=== PATIENT | male | born 1975 | race Two or more races ===

== ENCOUNTER 2023-10-17 23:25 | Emergency (ER) | payer SELFPAY ==
[2023-10-17 23:41] VITALS: BP 123/70; PULSE 88; TEMP 36.9; BMI 29.9
--- NOTE | 2023-10-17 23:59 | ED.LOWEXI1 ---
HPI HPI - Extremity Injury (Lower) General Chief Complaint: Extremity Injury, Lower Stated Complaint: LEG SWELLING Time Seen by Provider: 10/17/23 23:49 Source: patient Mode of arrival: walk-in Limitations: no limitations History of Present Illness HPI Narrative: presents complaining of swelling and redness of his legs for past 2 weeks. 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 States the legs are not as bad during the day but are worse at night with swelling and some weeping. mild sharp pain. No fever or chills. Denies injury Related Data Home Medications ?Medication ?Instructions ?Recorded ?Confirmed No Known Home Medications 10/17/23 10/17/23 Allergies Allergy/AdvReac Type Severity Reaction Status Date / Time No Known Drug Allergies Allergy Verified 10/17/23 23:51 Opioid HPI Opioid Management Most Recent Pain and Opioid Data: Last Pain Scale 4 10/17/23 23:59 Last ED Pain Assessment 10/17/23 23:59 Review of Systems ROS Status of ROS 10 or more systems reviewed and unremarkable except as noted in history and below Exam Constitutional Vital Signs, click to edit/add: Last Vital Signs Temp 98.4 F 10/17/23 23:41 Pulse 88 10/17/23 23:41 Resp 20 10/17/23 23:41 BP 123/70 10/17/23 23:41 Common normals: no apparent distress, average body habitus, oriented x3, no limitations, healthy appearing, alert and well nourished [facility] Common normals: normocephalic and head/scalp atraumatic Respiratory Common normals: normal respiratory effort, no retractions, no use of accessory muscles and clear to auscultation bilaterally Cardio Common normals: regular rate, regular rhythm, S1 normal heart sound and S2 normal heart sound GI Common normals: Normal to inspection, nondistended, normoactive bowel sounds present, soft to palpation and non-tender Extremity Other: 1+ swelling bilat lower ext. Erythematous large patch bilat teague area and also some yellow serous drainage. Mild tenderness Neuro Common normals: oriented x3, CN's II-XII intact bilaterally, moves all extremities and no focal motor deficits Psych Appearance: grossly normal Course Vital Signs Vital signs: Vital Signs Temperature 98.4 F 10/17/23 23:41 Pulse Rate 88 10/17/23 23:41 Respiratory Rate 20 10/17/23 23:41 Blood Pressure 123/70 10/17/23 23:41 Temperature 98.4 F 10/17/23 23:41 Pulse Rate 88 10/17/23 23:41 Respiratory Rate 20 10/17/23 23:41 Blood Pressure 123/70 10/17/23 23:41 MDM - Extremity Injury (Lower) MDM Narrative Medical decision making narrative: patient presents with swelling of bilateral lower extremities and erythema concerning for cellulitis. Workup with surprising results of pancytopenia. patient Denied feeling ill. No fever and only mild discomfort of his legs. Hgb 7.1. Patient denied any bleeding or tarry stools. Ask about alcohol and states he did not drink much. Additional labs ordered revealing elevated T. bili, thrombocytopenia and alcohol level 289. Patient AxOx4. Conversing normally without any signs of intoxication. Clinically he is a functioning alcoholic. He is advised of his abnormal labs and my plan to admit for observation to repeat labs. He did not want to stay. Understood my concern but signed out AMA. Will provide a prescription of Clindamycin and provide him with a PCP he can follow up with Discharge Plan Discharge Stand Alone Forms: Portal Instructions Chief Complaint: Extremity Injury, Lower Clinical Impression: Acquired pancytopenia, Bilateral lower leg cellulitis, Alcoholic Patient Disposition: Home, Self-Care Prescriptions / Home Meds: No Action No Known Home Medications Print Language: Greenlandic Instructions: Cellulitis (ED), Abuse of Alcohol (ED), Pancytopenia (DC) Additional Instructions: follow up with family doctor or with Dr Alex in a couple of days for recheck Referrals: Physician,Non-Staff, MD [Primary Care Provider] - 1 week
[2023-10-18] MEDS: METHYLPREDNISOLONE SOD SUCC PF 125 MG/2 ML VIAL IVP (00:35)
[2023-10-18] MEDS: CLINDAMYCIN PHOSPHATE/D5W 900 MG/50 ML PIGGYBACK 100 MG IV (00:35)
[2023-10-18 00:59] LABS: Anion Gap 11.2; BUN Creatinine Ratio 5.6; Calcium 7.5 mg/dL (8.5-10.1); Carbon Dioxide 26.3 mmol/L (21.0-32.0); Chloride 107 mmol/L (98-107); Estimated GFR (African America >60 (>=60); Estimated GFR (Non-African Ame >60 (>=60); Glucose 116 mg/dL (74-106); Potassium 3.5 mmol/L (3.5-5.1); Sodium 141 mmol/L (136-145)
[2023-10-18 01:10] LABS: C Reactive Protein <0.50 mg/dL (<=0.50)
[2023-10-18 01:33] LABS: Hemoglobin 7.1 g/dL (14.0-18.0); Mean Corpuscular HGB Conc 31.6 g/dL (29.9-35.2); Mean Corpuscular Hemoglobin 21.6 pg (25.9-34.0); Mean Corpuscular Volume 68.6 fL (80.0-94.0); Red Blood Count 3.28 10^6/uL (4.70-6.10); Red Cell Distribution Width 20.6 % (11.0-15.0); White Blood Count 2.8 10^3/uL (4.0-11.0)
[2023-10-18 01:35] LABS: Erythrocyte Sedimentation Rate 27 mm/hr (<=20)
[2023-10-18 01:39] LABS: Hematocrit 22.5 % (42.0-54.0); Platelet Count 19 10^3/uL (150-450)
[2023-10-18 01:49] LABS: Band Neutrophils Absolute 0.1 10^3/uL (0.0-0.3); Lymphocytes Absolute Manual 0.81 10^3/uL (1.20-3.80); Monocytes Absolute Manual 0.14 10^3/uL (0.30-0.80); Segmented Neut Absolute Manual 1.48 10^3/uL (1.4-6.5)
[2023-10-18 01:50] LABS: Basophils Abs Manual 0.02 10^3/uL (0.00-0.10); Eosinophils Absolute Manual 0.28 10^3/uL (0.00-0.70)
[2023-10-18 01:52] LABS: Poikilocytosis 1+
[2023-10-18 01:54] LABS: Microcytosis 1+
[2023-10-18 01:55] LABS: Ovalocytes 1+; Target Cells 2+
[2023-10-18 01:59] LABS: Schistocytes 1+
[2023-10-18 02:12] LABS: Alanine Aminotransferase 24 U/L (16-63); Albumin Globulin Ratio 0.4; Albumin Level 2.1 g/dL (3.4-5.0); Alkaline Phosphatase 110 U/L (46-116); Aspartate Amino Transferase 60 U/L (15-37); Bilirubin Total 2.9 mg/dL (0.2-1.0); Globulin 5.1 g/dL; Total Protein 7.2 g/dL (6.4-8.2)
[2023-10-18 02:15] LABS: Bilirubin Direct 1.5 mg/dL (0.0-0.2)
[2023-10-18 02:25] VITALS: BP 109/48; PULSE 77; O2SAT 98
[2023-10-18 02:30] LABS: Ethanol 289 mg/dL
== END 2023-10-18 03:33 | disposition left against medical advice (07) ==
PROVIDERS: Emergency Provider Internal Medicine
DX: L03.116 Cellulitis of left lower limb (principal); L03.115 Cellulitis of right lower limb; Z53.29 Procedure and treatment not carried out because of patient's decision for other reasons; D61.818 Other pancytopenia; F10.20 Alcohol dependence, uncomplicated; Y90.8 Blood alcohol level of 240 mg/100 ml or more
CPT/HCPCS: 36415; 80048; 80076; 80320; 85007; 85027; 85652; 86140; 96365; 96375; 99284; J2919

== ENCOUNTER 2023-10-24 15:18 | Observation (INO) | payer SELFPAY ==
[2023-10-24] VITALS (23 sets, daily range): BP systolic 107–129; BP diastolic 54–75; PULSE 74–102; TEMP 36.8–37.3; O2SAT 74–101; BMI 25.3; BMI 31.5
--- NOTE | 2023-10-24 15:33 | US_ITS ---
The [address] [address] Patient Name: ALEXANDER DE LA FUENTE MRN: [id number] date: 1975 Sex: M Assigned Patient Location: ER Current Patient Location: ER Accession/Order Number: [id number] Exam Date: 10/24/2023 16:24 Report Date: 10/24/2023 17:24 At the request of: MELISSA BRITO Procedure: US venous doppler LE BI EXAM: US venous doppler LE BI HISTORY: DVT COMPARISON: None. TECHNIQUE: Multiple sonographic images of the deep veins of both lower extremities were obtained, supplemented with Doppler. FINDINGS: The deep veins of both lower extremities are fairly well-visualized the groin to the mid calf. No filling defect is identified in the deep veins on either side to indicate a thrombus. There is normal compression augmentation to flow throughout bilaterally. US/US venous doppler LE BI IMPRESSION: There is no direct or indirect evidence of deep vein thrombosis in the lower extremities at this time. Electronically authenticated by: REBECCA LOPES Date: 10/24/2023 17:24
--- NOTE | 2023-10-24 15:35 | ED_ITS ---
Documented by User: PARUL Goyal 10/24/23 16:41 HPI HPI - General Adult General Chief complaint: Extremity Problem, Nontraumatic Stated complaint: CELLULITIS LEGS Time Seen by Provider: 10/24/23 15:25 Source: patient Mode of arrival: walk-in Limitations: no limitations History of Present Illness HPI narrative: Patient is a 48-year-old male With a history of alcoholic cirrhosis per the patient's significant other who returns to the emergency department at the recommendation of the nurse practitioner that he was establishing care with today. 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 He has a history of alcoholism and was noted on his visit 1 week ago to have significantly abnormal labs. He was recommended that he be admitted and he declined this, signing out AGAINST MEDICAL ADVICE. He was establishing with Senait Flores NP in the office today and she recommended he come back to the emergency department, she did not review any of his labs from last week or order any new labs or testing. Patient has had no fevers, chills, nausea, vomiting. He states he has persistent swelling and weeping of the rash to the legs. He denies any pain but states that the rash is very itchy. Related Data Home Medications ?Medication ?Instructions ?Recorded ?Confirmed clindamycin HCl 300 mg capsule 300 mg PO QID 10/24/23 10/24/23 Allergies Allergy/AdvReac Type Severity Reaction Status Date / Time No Known Drug Allergies Allergy Verified 10/17/23 23:51 Opioid HPI Opioid Management Most Recent Opioid Data: Last Pain Scale 4 10/17/23 23:59 Last Pain Assessment 10/24/23 18:00 Last ED Pain Assessment 10/17/23 23:59 Last ORT Total Score 3 10/24/23 18:10 Last ORT Risk Category Low Risk 10/24/23 18:10 Review of Systems ROS Constitutional Denies: fever or chills Ears, nose, mouth, and throat Denies: throat pain or nasal congestion Cardiovascular Denies: chest pain Respiratory Denies: shortness of breath Gastrointestinal Denies: nausea or vomiting Musculoskeletal Denies: back pain Integumentary/Breast Reports: rash and itching Neurological Denies: headache Hematologic/Lymphatic Denies: easy bruising or easy bleeding PFSH PFSH Medical History (Updated 10/24/23 @ 17:55 by Bernie Rodriguez) Hypertension ?I10 - Essential (primary) hypertension (ICD-10) Cirrhosis ?K74.60 - Unspecified cirrhosis of liver (ICD-10) Family History (Updated 10/24/23 @ 17:57 by Bernie Rodriguez) Mother Family history of cancer Family history of diabetes mellitus Sister Family history of diabetes mellitus Social History Highest level of school completed/degree received: 12th grade, no diploma Do you think of yourself as: straight/heterosexual Gender Identity: male Exam Narrative Exam Narrative: Gen.: Awake, alert, in no distress Head: Normocephalic, atraumatic ENT: Moist mucous membranes Respiratory: No respiratory distress Extremities: Moves extremities equally, Bilateral legs are mildly edematous with 1+ nonpitting edema, no erythema or red streaking noted. Rash noted to the bilateral anterior tibias distally with clear serous drainage and excoriation consistent with contact dermatitis. Psych: Normal mood and affect Neuro: No focal neuro deficit Skin: Warm, dry, intact Constitutional Vital Signs, click to edit/add: Last Vital Signs Temp 98.3 F 10/24/23 18:27 Pulse 74 10/24/23 18:27 Resp 18 10/24/23 18:27 BP 112/65 10/24/23 18:27 Pulse Ox 96 10/24/23 18:27 O2 Del Method Room Air 10/24/23 18:27 Course Vital Signs Vital signs: Vital Signs Temperature 98.8 F 10/24/23 15:22 Pulse Rate 88 10/24/23 15:22 Respiratory Rate 18 10/24/23 15:22 Blood Pressure 122/63 10/24/23 15:22 Pulse Oximetry 98 10/24/23 15:22 Temperature 98.3 F 10/24/23 18:27 Pulse Rate 74 10/24/23 18:27 Respiratory Rate 18 10/24/23 18:27 Blood Pressure 112/65 10/24/23 18:27 Pulse Oximetry 96 10/24/23 18:27 Oxygen Delivery Method Room Air 10/24/23 18:27 Medical Decision Making MDM Narrative Medical decision making narrative: Patient with stable vital signs in the ER, he has no complaints of nausea, vomiting, chest pain or shortness of breath. He has no complaints of pain in the ER. His only focal medical complaint is that his legs are swollen and itchy. Ultrasound was obtained to rule out DVT, at this time we do not see any evidence of cellulitis. Labs show the patient has continued pancytopenia with hemoglobin 6.8 and hematocrit 21.7 with platelet count 51. Rectal exam was performed, patient has light brown stool on rectal exam, no evidence of active bleeding or dark tarry stools. He has not been having any dark or tarry stools at home. Family member states he had a blood transfusion in 2019 related to his alcoholic cirrhosis. Blood consent was obtained and 2 units of packed red blood cells were ordered for the patient. He is admitted to Dr. Leary, who accepted the admission to [facility] for observation. He is hemodynamically stable at this time. Case is discussed with Dr Allan For hemato logy/oncology for any further orders or insight. Medical Records Medical records reviewed: Yes I reviewed the patient's medical records Lab Data Lab results reviewed: Yes I reviewed the patient's lab results Labs: Lab Results 10/24/23 10/24/23 10/24/23 Range/Units 15:35 15:46 15:55 WBC 3.5 L (4.0-11.0) 10^3/uL RBC 3.21 L (4.70-6.10) 10^6/uL Hgb 6.8 L* (14.0-18.0) g/dL Hct 21.7 L* (42.0-54.0) % MCV 67.6 L (80.0-94.0) fL MCH 21.2 L (25.9-34.0) pg MCHC 31.3 (29.9-35.2) g/dL RDW 22.7 H (11.0-15.0) % Plt Count 51 L (150-450) 10^3/uL Seg Neuts % (Manual) 43.0 Lymphocytes % (Manual) 41.0 (20.5-60.0) % Monocytes % (Manual) 5.0 (1.7-12.0) % Eosinophils % (Manual) 9.0 H (0.9-7.0) % Basophils % (Manual) 2.0 (0.2-2.0) % Neutrophils # (Manual) 1.50 (1.4-6.5) 10^3/uL Lymphocytes # (Manual) 1.43 (1.20-3.80) 10^3/uL Monocytes # (Manual) 0.17 L (0.30-0.80) 10^3/uL Eosinophils # (Manual) 0.31 (0.00-0.70) 10^3/uL Basophils # (Manual) 0.07 (0.00-0.10) 10^3/uL Anisocytosis 1+ Microcytosis 1+ Retic Count (auto) (0.60-3.10) % PT 16.8 H (9.0-11.6) sec INR 1.67 Sodium 137 (136-145) mmol/L Potassium 4.0 (3.5-5.1) mmol/L Chloride 103 (98-107) mmol/L Carbon Dioxide 25.0 (21.0-32.0) mmol/L Anion Gap 13.0 BUN 7.0 (7.0-18.0) mg/dL Creatinine 0.87 (0.70-1.30) mg/dL Est GFR ( Amer) >60 (>=60) Est GFR (Non-Af Amer) >60 (>=60) BUN/Creatinine Ratio 8.0 Glucose 138 H (74-106) mg/dL Lactate 1.6 (0.4-2.0) mmol/L Calcium 8.0 L (8.5-10.1) mg/dL Phosphorus (2.6-4.7) mg/dL Magnesium (1.8-2.4) mg/dL Iron (65.0-175.0) ug/dL Total Bilirubin 2.9 H (0.2-1.0) mg/dL Direct Bilirubin (0.0-0.2) mg/dL AST 68 H (15-37) U/L ALT 32 (16-63) U/L Alkaline Phosphatase 133 H (46-116) U/L Ammonia (11-32) umol/L Lactate Dehydrogenase 252 H (85-227) U/L NT-Pro-B Natriuret Pep 73.0 (<=900.0) pg/mL Total Protein 6.9 (6.4-8.2) g/dL Albumin 2.2 L (3.4-5.0) g/dL Globulin 4.7 g/dL Albumin/Globulin Ratio 0.5 Lipase (16.0-77.0) U/L Vitamin B12 (193.0-986.0) pg/mL Folate (8.60-58.90) ng/mL Stool Occult Blood Positive A Ethanol Quant 197 mg/dL Blood Type O Positive Antibody Screen Negative Crossmatch See Detail 10/24/23 Range/Units 17:06 WBC (4.0-11.0) 10^3/uL RBC (4.70-6.10) 10^6/uL Hgb (14.0-18.0) g/dL Hct (42.0-54.0) % MCV (80.0-94.0) fL MCH (25.9-34.0) pg MCHC (29.9-35.2) g/dL RDW (11.0-15.0) % Plt Count (150-450) 10^3/uL Seg Neuts % (Manual) Lymphocytes % (Manual) (20.5-60.0) % Monocytes % (Manual) (1.7-12.0) % Eosinophils % (Manual) (0.9-7.0) % Basophils % (Manual) (0.2-2.0) % Neutrophils # (Manual) (1.4-6.5) 10^3/uL Lymphocytes # (Manual) (1.20-3.80) 10^3/uL Monocytes # (Manual) (0.30-0.80) 10^3/uL Eosinophils # (Manual) (0.00-0.70) 10^3/uL Basophils # (Manual) (0.00-0.10) 10^3/uL Anisocytosis Microcytosis Retic Count (auto) 2.76 (0.60-3.10) % PT (9.0-11.6) sec INR Sodium (136-145) mmol/L Potassium (3.5-5.1) mmol/L Chloride (98-107) mmol/L Carbon Dioxide (21.0-32.0) mmol/L Anion Gap BUN (7.0-18.0) mg/dL Creatinine (0.70-1.30) mg/dL Est GFR ( Amer) (>=60) Est GFR (Non-Af Amer) (>=60) BUN/Creatinine Ratio Glucose (74-106) mg/dL Lactate (0.4-2.0) mmol/L Calcium (8.5-10.1) mg/dL Phosphorus 3.9 (2.6-4.7) mg/dL Magnesium 1.9 (1.8-2.4) mg/dL Iron 9.0 L (65.0-175.0) ug/dL Total Bilirubin (0.2-1.0) mg/dL Direct Bilirubin 1.4 H* (0.0-0.2) mg/dL AST (15-37) U/L ALT (16-63) U/L Alkaline Phosphatase (46-116) U/L Ammonia 19 (11-32) umol/L Lactate Dehydrogenase (85-227) U/L NT-Pro-B Natriuret Pep (<=900.0) pg/mL Total Protein (6.4-8.2) g/dL Albumin (3.4-5.0) g/dL Globulin g/dL Albumin/Globulin Ratio Lipase 112.0 H (16.0-77.0) U/L Vitamin B12 1713.0 H (193.0-986.0) pg/mL Folate 8.30 L (8.60-58.90) ng/mL Stool Occult Blood Ethanol Quant mg/dL Blood Type Antibody Screen Crossmatch Discharge Plan Discharge Chief Complaint: Extremity Problem, Nontraumatic Clinical Impression: Anemia requiring transfusions, Alcohol intoxication, Pancytopenia, Contact dermatitis Patient Disposition: Admitted as Observation Time of Disposition Decision: 16:39 Discharge Date/Time: 10/24/23 17:40 Documented by User: Bipin Lemus MD 10/24/23 19:30 HPI HPI - General Adult General Chief complaint: Extremity Problem, Nontraumatic Stated complaint: CELLULITIS LEGS Time Seen by Provider: 10/24/23 15:25 Related Data Home Medications ?Medication ?Instructions ?Recorded ?Confirmed clindamycin HCl 300 mg capsule 300 mg PO QID 10/24/23 10/24/23 Allergies Allergy/AdvReac Type Severity Reaction Status Date / Time No Known Drug Allergies Allergy Verified 10/17/23 23:51 Opioid HPI Opioid Management Most Recent Opioid Data: Last Pain Scale 4 10/17/23 23:59 Last Pain Assessment 10/24/23 18:00 Last ED Pain Assessment 10/17/23 23:59 Last ORT Total Score 3 10/24/23 18:10 Last ORT Risk Category Low Risk 10/24/23 18:10 PFSH PFSH Medical History (Updated 10/24/23 @ 17:55 by Bernie Rodriguez) Hypertension ?I10 - Essential (primary) hypertension (ICD-10) Cirrhosis ?K74.60 - Unspecified cirrhosis of liver (ICD-10) Family History (Updated 10/24/23 @ 17:57 by Bernie Rodriguez) Mother Family history of cancer Family history of diabetes mellitus Sister Family history of diabetes mellitus Social History Highest level of school completed/degree received: 12th grade, no diploma Do you think of yourself as: straight/heterosexual Gender Identity: male Exam Constitutional Vital Signs, click to edit/add: Last Vital Signs Temp 98.3 F 10/24/23 18:27 Pulse 74 10/24/23 18:27 Resp 18 10/24/23 18:27 BP 112/65 10/24/23 18:27 Pulse Ox 96 10/24/23 18:27 O2 Del Method Room Air 10/24/23 18:27 Course Vital Signs Vital signs: Vital Signs Temperature 98.8 F 10/24/23 15:22 Pulse Rate 88 10/24/23 15:22 Respiratory Rate 18 10/24/23 15:22 Blood Pressure 122/63 10/24/23 15:22 Pulse Oximetry 98 10/24/23 15:22 Temperature 98.3 F 10/24/23 18:27 Pulse Rate 74 10/24/23 18:27 Respiratory Rate 18 10/24/23 18:27 Blood Pressure 112/65 10/24/23 18:27 Pulse Oximetry 96 10/24/23 18:27 Oxygen Delivery Method Room Air 10/24/23 18:27 Medical Decision Making MDM Narrative Medical decision making narrative: Patient with stable vital signs in the ER, he has no complaints of nausea, vomiting, chest pain or shortness of breath. He has no complaints of pain in the ER. His only focal medical complaint is that his legs are swollen and itchy. Ultrasound was obtained to rule out DVT, at this time we do not see any evidence of cellulitis. Labs show the patient has continued pancytopenia with hemoglobin 6.8 and hematocrit 21.7 with platelet count 51. Rectal exam was performed, patient has light brown stool on rectal exam, no evidence of active bleeding or dark tarry stools. He has not been having any dark or tarry stools at home. Family member states he had a blood transfusion in 2019 related to his alcoholic cirrhosis. Blood consent was obtained and 2 units of packed red blood cells were ordered for the patient. He is admitted to Dr. Leary, who accepted the admission to [facility] for observation. He is hemodynamically stable at this time. Case is discussed with Dr Allan For hematology/oncology for any further orders or insight. I, Dr Lemus, have reviewed the above progress note and course of action in the ER; agree with the above. I have personally seen and evaluated this patient, gone over history and physical, and discussed disposition and treatment plan with the patient. Critical care time 31 minutes exclusive from separate billable procedures that were performed. The following was considered in the determination of critical care but not limited to the level of medical decision making, intensive cardiac and/or respiratory monitoring, frequent vital sign monitoring, evaluation of laboratory studies, evaluation of radiographic studies, oxygen monitoring, and constant monitoring and speaking to family at bedside Lab Data Labs: Lab Results 10/24/23 10/24/23 10/24/23 Range/Units 15:35 15:46 15:55 WBC 3.5 L (4.0-11.0) 10^3/uL RBC 3.21 L (4.70-6.10) 10^6/uL Hgb 6.8 L* (14.0-18.0) g/dL Hct 21.7 L* (42.0-54.0) % MCV 67.6 L (80.0-94.0) fL MCH 21.2 L (25.9-34.0) pg MCHC 31.3 (29.9-35.2) g/dL RDW 22.7 H (11.0-15.0) % Plt Count 51 L (150-450) 10^3/uL Seg Neuts % (Manual) 43.0 Lymphocytes % (Manual) 41.0 (20.5-60.0) % Monocytes % (Manual) 5.0 (1.7-12.0) % Eosinophils % (Manual) 9.0 H (0.9-7.0) % Basophils % (Manual) 2.0 (0.2-2.0) % Neutrophils # (Manual) 1.50 (1.4-6.5) 10^3/uL Lymphocytes # (Manual) 1.43 (1.20-3.80) 10^3/uL Monocytes # (Manual) 0.17 L (0.30-0.80) 10^3/uL Eosinophils # (Manual) 0.31 (0.00-0.70) 10^3/uL Basophils # (Manual) 0.07 (0.00-0.10) 10^3/uL Anisocytosis 1+ Microcytosis 1+ Retic Count (auto) (0.60-3.10) % PT 16.8 H (9.0-11.6) sec INR 1.67 Sodium 137 (136-145) mmol/L Potassium 4.0 (3.5-5.1) mmol/L Chloride 103 (98-107) mmol/L Carbon Dioxide 25.0 (21.0-32.0) mmol/L Anion Gap 13.0 BUN 7.0 (7.0-18.0) mg/dL Creatinine 0.87 (0.70-1.30) mg/dL Est GFR ( Amer) >60 (>=60) Est GFR (Non-Af Amer) >60 (>=60) BUN/Creatinine Ratio 8.0 Glucose 138 H (74-106) mg/dL Lactate 1.6 (0.4-2.0) mmol/L Calcium 8.0 L (8.5-10.1) mg/dL Phosphorus (2.6-4.7) mg/dL Magnesium (1.8-2.4) mg/dL Iron (65.0-175.0) ug/dL Total Bilirubin 2.9 H (0.2-1.0) mg/dL Direct Bilirubin (0.0-0.2) mg/dL AST 68 H (15-37) U/L ALT 32 (16-63) U/L Alkaline Phosphatase 133 H (46-116) U/L Ammonia (11-32) umol/L Lactate Dehydrogenase 252 H (85-227) U/L NT-Pro-B Natriuret Pep 73.0 (<=900.0) pg/mL Total Protein 6.9 (6.4-8.2) g/dL Albumin 2.2 L (3.4-5.0) g/dL Globulin 4.7 g/dL Albumin/Globulin Ratio 0.5 Lipase (16.0-77.0) U/L Vitamin B12 (193.0-986.0) pg/mL Folate (8.60-58.90) ng/mL Stool Occult Blood Positive A Ethanol Quant 197 mg/dL Blood Type O Positive Antibody Screen Negative Crossmatch See Detail 10/24/23 Range/Units 17:06 WBC (4.0-11.0) 10^3/uL RBC (4.70-6.10) 10^6/uL Hgb (14.0-18.0) g/dL Hct (42.0-54.0) % MCV (80.0-94.0) fL MCH (25.9-34.0) pg MCHC (29.9-35.2) g/dL RDW (11.0-15.0) % Plt Count (150-450) 10^3/uL Seg Neuts % (Manual) Lymphocytes % (Manual) (20.5-60.0) % Monocytes % (Manual) (1.7-12.0) % Eosinophils % (Manual) (0.9-7.0) % Basophils % (Manual) (0.2-2.0) % Neutrophils # (Manual) (1.4-6.5) 10^3/uL Lymphocytes # (Manual) (1.20-3.80) 10^3/uL Monocytes # (Manual) (0.30-0.80) 10^3/uL Eosinophils # (Manual) (0.00-0.70) 10^3/uL Basophils # (Manual) (0.00-0.10) 10^3/uL Anisocytosis Microcytosis Retic Count (auto) 2.76 (0.60-3.10) % PT (9.0-11.6) sec INR Sodium (136-145) mmol/L Potassium (3.5-5.1) mmol/L Chloride (98-107) mmol/L Carbon Dioxide (21.0-32.0) mmol/L Anion Gap BUN (7.0-18.0) mg/dL Creatinine (0.70-1.30) mg/dL Est GFR ( Amer) (>=60) Est GFR (Non-Af Amer) (>=60) BUN/Creatinine Ratio Glucose (74-106) mg/dL Lactate (0.4-2.0) mmol/L Calcium (8.5-10.1) mg/dL Phosphorus 3.9 (2.6-4.7) mg/dL Magnesium 1.9 (1.8-2.4) mg/dL Iron 9.0 L (65.0-175.0) ug/dL Total Bilirubin (0.2-1.0) mg/dL Direct Bilirubin 1.4 H* (0.0-0.2) mg/dL AST (15-37) U/L ALT (16-63) U/L Alkaline Phosphatase (46-116) U/L Ammonia 19 (11-32) umol/L Lactate Dehydrogenase (85-227) U/L NT-Pro-B Natriuret Pep (<=900.0) pg/mL Total Protein (6.4-8.2) g/dL Albumin (3.4-5.0) g/dL Globulin g/dL Albumin/Globulin Ratio Lipase 112.0 H (16.0-77.0) U/L Vitamin B12 1713.0 H (193.0-986.0) pg/mL Folate 8.30 L (8.60-58.90) ng/mL Stool Occult Blood Ethanol Quant mg/dL Blood Type Antibody Screen Crossmatch Discharge Plan Discharge Chief Complaint: Extremity Problem, Nontraumatic Clinical Impression: Anemia requiring transfusions, Alcohol intoxication, Pancytopenia, Contact dermatitis Patient Disposition: Admitted as Observation Time of Disposition Decision: 16:39 Discharge Date/Time: 10/24/23 17:40
[2023-10-24 15:48] LABS: Mean Corpuscular HGB Conc 31.3 g/dL (29.9-35.2); Mean Corpuscular Hemoglobin 21.2 pg (25.9-34.0); Mean Corpuscular Volume 67.6 fL (80.0-94.0); Platelet Count 51 10^3/uL (150-450); Red Blood Count 3.21 10^6/uL (4.70-6.10); Red Cell Distribution Width 22.7 % (11.0-15.0); White Blood Count 3.5 10^3/uL (4.0-11.0)
[2023-10-24 15:52] LABS: Hematocrit 21.7 % (42.0-54.0); Hemoglobin 6.8 g/dL (14.0-18.0)
[2023-10-24 16:01] LABS: INR 1.67; Prothrombin Time 16.8 sec (9.0-11.6)
[2023-10-24 16:03] LABS: Alanine Aminotransferase 32 U/L (16-63); Albumin Globulin Ratio 0.5; Albumin Level 2.2 g/dL (3.4-5.0); Alkaline Phosphatase 133 U/L (46-116); Aspartate Amino Transferase 68 U/L (15-37); Bilirubin Total 2.9 mg/dL (0.2-1.0); Chloride 103 mmol/L (98-107); Estimated GFR (African America >60 (>=60); Estimated GFR (Non-African Ame >60 (>=60); Ethanol 197 mg/dL; Globulin 4.7 g/dL; Glucose 138 mg/dL (74-106); Sodium 137 mmol/L (136-145); Total Protein 6.9 g/dL (6.4-8.2)
[2023-10-24 16:06] LABS: Anisocytosis 1+; Basophils Abs Manual 0.07 10^3/uL (0.00-0.10); Eosinophils Absolute Manual 0.31 10^3/uL (0.00-0.70); Lymphocytes Absolute Manual 1.43 10^3/uL (1.20-3.80); Microcytosis 1+; Monocytes Absolute Manual 0.17 10^3/uL (0.30-0.80)
[2023-10-24] MEDS: HYDROXYZINE HCL 25 MG TABLET PO (16:22)
[2023-10-24] MEDS: METHYLPREDNISOLONE SOD SUCC PF 125 MG/2 ML VIAL IVP (16:22)
--- NOTE | 2023-10-24 17:00 | US_ITS ---
The [address] [address] Patient Name: ALEXANDER DE LA FUENTE MRN: [id number] date: 1975 Sex: M Assigned Patient Location: Current Patient Location: Accession/Order Number: [id number] Exam Date: 10/24/2023 09:00 Report Date: 10/25/2023 09:14 At the request of: NACHO TUBBS Procedure: US abdomen complete EXAM: US abdomen complete HISTORY: Abd Pain COMPARISON: None. TECHNIQUE: Real-time complete abdomen ultrasound Findings: Evaluation of the pancreas is limited due to overlying bowel gas. The visualized portions are unremarkable. The visualized portions of the aorta and IVC are unremarkable. The aorta measures 2.8 cm in maximum diameter. The hepatic parenchyma is coarsened and echogenic. No focal intrahepatic mass. The main portal vein is patent and demonstrates hepatopedal flow. It measures 1.5 cm. There are upper abdominal collateral vessels adjacent to the gallbladder. The gallbladder is fluid-filled and unremarkable without evidence of stones, wall thickening or pericholecystic fluid. The technologist reports a negative sonographic Campos's sign. No biliary ductal dilatation. The common bile duct measures 0.5 cm. The right and left kidneys measure 11.7 and 13.3 cm. There is good corticomedullary differentiation bilaterally. No renal stones or collecting system dilatation. No focal mass or perinephric fluid collection. The spleen is enlarged measuring 15.6 cm. No free abdominal fluid. US/US abdomen complete IMPRESSION: 1. Coarsened and echogenic hepatic parenchymal echotexture as can be seen with hepatocellular disease. There are upper abdominal collateral vessels in the spleen is mildly enlarged. Findings may relate to portal hypertension. If indicated, consider contrast-enhanced CT for further evaluation. Electronically authenticated by: YESSI WALKER Date: 10/25/2023 09:14
[2023-10-24 17:13] LABS: Lactate Dehydrogenase 252 U/L (85-227)
[2023-10-24 17:13] LABS: Reticulocyte Pct Auto 2.76 % (0.60-3.10)
[2023-10-24 17:21] LABS: Occult Blood Positive
[2023-10-24 17:35] LABS: Phosphorus 3.9 mg/dL (2.6-4.7)
[2023-10-24 17:37] LABS: Magnesium 1.9 mg/dL (1.8-2.4)
[2023-10-24 17:38] LABS: Ammonia 19 umol/L (11-32)
[2023-10-24 17:41] LABS: Lactate/Lactic Acid 1.6 mmol/L (0.4-2.0)
[2023-10-24 17:56] LABS: Bilirubin Direct 1.4 mg/dL (0.0-0.2)
--- NOTE | 2023-10-24 18:09 | P.HP_ITS ---
HPI H&P: HPI History of Present Illness Chief complaint: CELLULITIS LEGS Anemia Requiring Transfusion Narrative: Patient was seen and evaluated in the emergency room with increasing weakness. Had rash on lower extremities. Patient found to have significant anemia. Patient admitted for workup and treatment of same When I saw patient up on the medical surgical floor, he was resting comfortably and blood. No real specific complaints. Some mild abdominal discomfort at times. Pruritus of his lower extremities. Review of labs patient have significant anemia, iron deficiency, thrombocytopenia. This is likely related to his alcohol abuse history. Opioid HPI Opioid Management Most Recent Opioid Data: Last Pain Scale 4 10/17/23 23:59 Last Pain Assessment 10/25/23 06:13 Last ORT Total Score 3 10/24/23 18:10 Last ORT Risk Category Low Risk 10/24/23 18:10 Review of Systems ROS Status of ROS 10 or more systems reviewed and unremark able except as noted in history and below PFSH PFS Medical History (Updated 10/24/23 @ 17:55 by Bernie Rodriguez) Hypertension ?I10 - Essential (primary) hypertension (ICD-10) Cirrhosis ?K74.60 - Unspecified cirrhosis of liver (ICD-10) Family History (Updated 10/24/23 @ 17:57 by Bernie Rodriguez) Mother Family history of cancer Family history of diabetes mellitus Sister Family history of diabetes mellitus Social History Highest level of school completed/degree received: 12th grade, no diploma Do you think of yourself as: straight/heterosexual Gender Identity: male Meds Home Medications and Allergies Home Medications ?Medication ?Instructions ?Recorded ?Confirmed ?Type clindamycin HCl 300 mg capsule 300 mg PO QID 10/24/23 10/24/23 History Allergies Allergy/AdvReac Type Severity Reaction Status Date / Time No Known Drug Allergies Allergy Verified 10/17/23 23:51 Exam Constitutional Vital Signs, click to edit/add: Last Vital Signs Temp 98.2 F 10/24/23 17:36 Pulse 76 10/24/23 17:36 Resp 18 10/24/23 17:36 BP 112/65 10/24/23 17:59 Pulse Ox 98 10/24/23 17:36 O2 Del Method Room Air 10/24/23 17:36 Documenting provider has reviewed patient's vital signs: yes Common normals: no apparent distress Chest Common normals: inspection of chest normal and palpation of chest normal Respiratory Common normals: normal respiratory effort, no retractions and clear to auscultation bilaterally Cardio Common normals: regular rhythm and no murmurs; irregular rate Rate: tachycardic GI Common normals: Normal to inspection, nondistended, normoactive bowel sounds present and soft to palpation; tender Palpation: tender Details: epigastric Extremity Common normals: abnormal to inspection (Bilateral lower extremity cellulitis with contact dermatitis as well) Results Labs Labs: Short CBC 10/24/23 Range/Units 15:35 WBC 3.5 L (4.0-11.0) 10^3/uL Hgb 6.8 L* (14.0-18.0) g/dL Hct 21.7 L* (42.0-54.0) % Plt Count 51 L (150-450) 10^3/uL BMP 10/24/23 15:35 Sodium 137 Potassium 4.0 Chloride 103 Carbon Dioxide 25.0 BUN 7.0 Creatinine 0.87 Glucose 138 H Calcium 8.0 L Liver Function 10/24/23 10/24/23 Range/Units 15:35 17:06 Total Bilirubin 2.9 H (0.2-1.0) mg/dL Direct Bilirubin 1.4 H* (0.0-0.2) mg/dL AST 68 H (15-37) U/L ALT 32 (16-63) U/L Alkaline Phosphatase 133 H (46-116) U/L Albumin 2.2 L (3.4-5.0) g/dL Assessment and Plan Assessment and Plan (1) Contact dermatitis: (2) Pancytopenia: (3) Alcohol intoxication: (4) Anemia requiring transfusions: (5) Bilateral lower leg cellulitis: (6) Hypertension: (7) Cirrhosis: Plan Mild tachycardia due to acute blood loss anemia with positive Hemoccult. Baseline anemia secondary to iron deficiency in bone marrow suppression from alcohol abuse. No B type cross and transfuse [address] Allan for investigation of other etiologies of the pancytopenia Thrombocytopenia-monitor daily. Not to the level of requiring transfusion Iron deficiency anemia as outlined above-start patient on IV Protonix with positive Hemoccult, scope as an outpatient Coagulopathy-secondary to likely alcoholic cirrhosis-repeat lab in a.m., consider vitamin K. Elevated liver function test secondary to alcoholic cirrhosis-check ammonia level With upper abdominal discomfort-check lipase Hyperglycemia-likely secondary to nonfasting Severe protein calorie malnutrition-diet management Cellulitis bilateral lower extremities-IV antibiotics. Admission status: Patient required transfusion. Will observe patient overnight. Hemoglobin remained stable, be discharged tomorrow. Observation status
[2023-10-24] MEDS: LEVOFLOXACIN IN DEXTROSE 5 % 750 MG/150 ML IV.SOLN 100 MG IV (19:59)
[2023-10-24] MEDS: PANTOPRAZOLE SODIUM 40 MG VIAL IV (19:59)
[2023-10-24] MEDS: CEFTRIAXONE 1,000 MG in 0.9 % SODIUM CHLORIDE 50 ML 100 MG IV (19:59)
--- NOTE | 2023-10-24 22:54 | PC.NURSE ---
Second unit of PRBCs completed at 2202. No transfusion reaction noted. VSS. Unit was verified with Librado Pratt, and Iris HONEYCUTT. All VS were charted.
[2023-10-24] MEDS: PHENobarbitaL 32.4 MG TABLET 32.3999999999999986 MG PO (23:17)
[2023-10-25] VITALS (9 sets, daily range): BP systolic 126–147; BP diastolic 62–77; PULSE 81–97; TEMP 36.8–37.1; O2SAT 95–101
[2023-10-25 00:48] LABS: Hematocrit 26.5 % (42.0-54.0); Hemoglobin 8.5 g/dL (14.0-18.0)
[2023-10-25 04:50] LABS: Basophils Percent Auto 0.4 % (0.2-2.0); Hematocrit 26.5 % (42.0-54.0); Hemoglobin 8.5 g/dL (14.0-18.0); Immature Granulocytes Abs Auto 0.04 10^3/uL (0.00-0.03); Immature Granulocytes Pct Auto 1.6 % (0.0-0.5); Lymphocytes Absolute Auto 0.2 10^3/uL (1.2-3.8); Lymphocytes Percent Auto 8.2 % (20.5-60.0); Mean Corpuscular HGB Conc 32.1 g/dL (29.9-35.2); Mean Corpuscular Hemoglobin 22.7 pg (25.9-34.0); Mean Corpuscular Volume 70.7 fL (80.0-94.0); Monocytes Absolute Auto 0.1 10^3/uL (0.3-0.8); Monocytes Percent Auto 4.9 % (1.7-12.0); Neutrophils Absolute Auto 2.1 10^3/uL (1.4-6.5); Neutrophils Percent Auto 84.9 % (43.0-75.0); Platelet Count 38 10^3/uL (150-450); Red Blood Count 3.75 10^6/uL (4.70-6.10); Red Cell Distribution Width 23.1 % (11.0-15.0); White Blood Count 2.4 10^3/uL (4.0-11.0)
[2023-10-25 05:10] LABS: Alanine Aminotransferase 25 U/L (16-63); Albumin Globulin Ratio 0.4; Alkaline Phosphatase 109 U/L (46-116); Anion Gap 9.6; Aspartate Amino Transferase 48 U/L (15-37); BUN Creatinine Ratio 11.9; Bilirubin Total 5.1 mg/dL (0.2-1.0); Calcium 7.9 mg/dL (8.5-10.1); Carbon Dioxide 23.4 mmol/L (21.0-32.0); Chloride 106 mmol/L (98-107); Estimated GFR (African America >60 (>=60); Estimated GFR (Non-African Ame >60 (>=60); Globulin 4.7 g/dL; Glucose 148 mg/dL (74-106); Sodium 135 mmol/L (136-145); Total Protein 6.7 g/dL (6.4-8.2)
[2023-10-25 05:16] LABS: INR 1.77; Prothrombin Time 17.7 sec (9.0-11.6)
[2023-10-25 05:21] LABS: Ammonia 53 umol/L (11-32); Partial Thromboplastin Time 40.4 sec (22.3-36.2)
[2023-10-25] MEDS: PHENobarbitaL 32.4 MG TABLET 32.3999999999999986 MG PO (06:12)
--- NOTE | 2023-10-25 07:33 | P.DS_ITS ---
DS: Providers Provider Date of admission: 10/24/23 17:40 Primary care physician: ESTELLA CARRILLO Consults: 10/24/23 16:58 Consult to Pharmacy Routine Consulting Provider: Reason for consultation: Please [place] me when Med Rec is Updated Has provider been notified: No DS: Diagnosis Discharge Diagnosis (1) Contact dermatitis: (2) Pancytopenia: (3) Alcohol intoxication: (4) Anemia requiring transfusions: (5) Bilateral lower leg cellulitis: (6) Hypertension: (7) Cirrhosis: Plan Mild tachycardia due to acute blood loss anemia with positive Hemoccult. Stable at time of discharge Thrombocytopenia-monitor daily. Down at the time of discharge but noncritical Iron deficiency anemia as outlined above-outpatient endoscopy Coagulopathy-elevated at the time of discharge but will give vitamin K today. Elevated liver function test secondary to alcoholic cirrhosis-improving at the time of discharge Hyperammonemia secondary to alcoholic liver cirrhosis-elevated at the time of discharge, monitor as an outpatient With upper abdominal discomfort-ultrasound pending at the time of discharge Mild [id number] as an outpatient Hyperglycemia-follow as an outpatient Severe protein calorie malnutrition-diet management Cellulitis bilateral lower extremities-change in antibiotics and topical treatment at the time of discharge Admission status: Observation status overnight for transfusion, assuming no issues with workup this morning will be discharged as observation status DS: Summary Hospital Course Hospital Course: Patient was seen and evaluated in the emergency room. Did have a follow-up visit in the emergency room on the day of admission secondary to weakness. Lower extremity pruritus. Placed on antibiotics as an outpatient. Mild cellulitis is persisting despite the antibiotics. But most significant was his anemia. Less than 7. He was given 2 units with an increase in his hemoglobin of almost 2 points. Repeat hemoglobin stable. Will discuss with oncology, further workup as an inpatient versus outpatient. Thrombocytopenia-somewhat worse today. But still noncritical. Liver function test for his alcoholic liver cirrhosis are improving. Lipase labs are pending. Ultrasound of abdomen is pending. If his ultrasound shows no significant obstruction, with his abdominal pain resolved will discharge home with further workup as an outpatient. Discussed his abstinence is critical for future health. Medication status. Follow-up with PCP within the next week. Time Spent with Patient Time attestation: Total time spent providing and/or coordinating discharge services: Exam Constitutional Vital Signs, click to edit/add: Last Vital Signs Temp 98.8 F 10/25/23 03:52 Pulse 85 10/25/23 06:00 Resp 16 10/25/23 03:52 BP 126/62 10/25/23 06:13 Pulse Ox 96 10/25/23 03:53 O2 Del Method Room Air 10/25/23 03:53 Documenting provider has reviewed patient's vital signs: yes Common normals: no apparent distress Chest Common normals: inspection of chest normal and palpation of chest normal Respiratory Common normals: normal respiratory effort, no retractions and clear to auscultat ion bilaterally Cardio Common normals: regular rhythm and no murmurs; irregular rate Rate: tachycardic GI Common normals: Normal to inspection, nondistended, normoactive bowel sounds present, soft to palpation and non-tender (Mild tenderness from previous day has resolved) Extremity Common normals: abnormal to inspection (Bilateral lower extremity cellulitis with contact dermatitis as well) DS: Data Data Completed and Pending Labs on day of discharge: Labs from last 24 hours 10/25/23 10/25/23 10/24/23 04:41 00:34 17:06 WBC 2.4 L RBC 3.75 L Hgb 8.5 L 8.5 L Hct 26.5 L 26.5 L MCV 70.7 L MCH 22.7 L MCHC 32.1 RDW 23.1 H Plt Count 38 L MPV 0.0 L Neut % (Auto) 84.9 H Lymph % (Auto) 8.2 L Crawford % (Auto) 4.9 Eos % (Auto) 0.0 L Baso % (Auto) 0.4 Neut # (Auto) 2.1 Lymph # (Auto) 0.2 L Crawford # (Auto) 0.1 L Eos # (Auto) 0.0 Baso # (Auto) 0.0 Abs Immat Gran (auto) 0.04 H Seg Neuts % (Manual) Lymphocytes % (Manual) Monocytes % (Manual) Eosinophils % (Manual) Basophils % (Manual) Imm/Tot Granulo (auto) 1.6 H Neutrophils # (Manual) Lymphocytes # (Manual) Monocytes # (Manual) Eosinophils # (Manual) Basophils # (Manual) Anisocytosis Microcytosis Retic Count (auto) 2.76 PT 17.7 H INR 1.77 APTT 40.4 H* Sodium 135 L Potassium 4.0 Chloride 106 Carbon Dioxide 23.4 Anion Gap 9.6 BUN 8.0 Creatinine 0.67 L Est GFR ( Amer) >60 Est GFR (Non-Af Amer) >60 BUN/Creatinine Ratio 11.9 Glucose 148 H Lactate Calcium 7.9 L Phosphorus 3.9 Magnesium 1.9 Iron 9.0 L Total Bilirubin 5.1 H Direct Bilirubin 1.4 H* AST 48 H ALT 25 Alkaline Phosphatase 109 Ammonia 53 H* 19 Lactate Dehydrogenase NT-Pro-B Natriuret Pep Total Protein 6.7 Albumin 2.0 L Globulin 4.7 Albumin/Globulin Ratio 0.4 Lipase 61.0 112.0 H Vitamin B12 1713.0 H Folate 8.30 L Stool Occult Blood Ethanol Quant Blood Type Antibody Screen Crossmatch 10/24/23 10/24/23 10/24/23 15:55 15:46 15:35 WBC 3.5 L RBC 3.21 L Hgb 6.8 L* Hct 21.7 L* MCV 67.6 L MCH 21.2 L MCHC 31.3 RDW 22.7 H Plt Count 51 L MPV Neut % (Auto) Lymph % (Auto) Crawford % (Auto) Eos % (Auto) Baso % (Auto) Neut # (Auto) Lymph # (Auto) Crawford # (Auto) Eos # (Auto) Baso # (Auto) Abs Immat Gran (auto) Seg Neuts % (Manual) 43.0 Lymphocytes % (Manual) 41.0 Monocytes % (Manual) 5.0 Eosinophils % (Manual) 9.0 H Basophils % (Manual) 2.0 Imm/Tot Granulo (auto) Neutrophils # (Manual) 1.50 Lymphocytes # (Manual) 1.43 Monocytes # (Manual) 0.17 L Eosinophils # (Manual) 0.31 Basophils # (Manual) 0.07 Anisocytosis 1+ Microcytosis 1+ Retic Count (auto) PT 16.8 H INR 1.67 APTT Sodium 137 Potassium 4.0 Chloride 103 Carbon Dioxide 25.0 Anion Gap 13.0 BUN 7.0 Creatinine 0.87 Est GFR ( Amer) >60 Est GFR (Non-Af Amer) >60 BUN/Creatinine Ratio 8.0 Glucose 138 H Lactate 1.6 Calcium 8.0 L Phosphorus Magnesium Iron Total Bilirubin 2.9 H Direct Bilirubin AST 68 H ALT 32 Alkaline Phosphatase 133 H Ammonia Lactate Dehydrogenase 252 H NT-Pro-B Natriuret Pep 73.0 Total Protein 6.9 Albumin 2.2 L Globulin 4.7 Albumin/Globulin Ratio 0.5 Lipase Vitamin B12 Folate Stool Occult Blood Positive A Ethanol Quant 197 Blood Type O Positive Antibody Screen Negative Crossmatch See Detail Discharge Plan Discharge Disposition: Home, Self-Care Discharge Medications: New cephalexin 500 mg capsule 1,000 mg PO BID Qty: 40 0RF lactulose 10 gram/15 mL (15 mL) Solution 20 g PO BID Qty: 600 0RF pantoprazole [Protonix] 40 mg tablet,delayed release (DR/EC) 40 mg PO DAILY Qty: 30 11RF Discontinued clindamycin HCl 300 mg capsule 300 mg PO QID Rx Instructions: FILLED 10/18/23 FOR 10 DAYS Activity: resume usual activities as tolerated Diet: advance to your usual diet Print Language: Maldivian Patient Instructions: Contact Dermatitis (DC), Abuse of Alcohol (DC), Anemia (DC), Pancytopenia (DC) Forms: Portal Instructions Follow Up Appointments: Dr. Allan TuesdayOctober 31 @ 3:15pm [facility]- first floor where occupational health is located *bring all medications in original bottles [phone] ext: [phone] Estella Carrillo NP TuesdayNovember 01 @ 9:00am [phone] Discharge Date/Time: 10/25/23 10:33
[2023-10-25] MEDS: PHYTONADIONE (VIT K1) 10 MG/ML AMPUL 5 MG PO (09:00)
[2023-10-25] MEDS: LACTULOSE 10 GM/15 ML UD CUP 30 GM PO (09:01)
[2023-10-25] MEDS: TRIAMCINOLONE ACETONIDE 0.1% CREAM 15 GM TUBE 1 APPLIC TOPICAL (09:01)
--- NOTE | 2023-10-25 09:59 | SWNOTE1 ---
SW spoke to nursing and nursing requested list of AA meetings for pt. She has spoken with family and patient and they would just like resources. AA list given to nursing to provide to pt.
[2023-10-26 05:08] LABS: Haptoglobin 28 mg/dL (23-355)
--- NOTE | 2023-10-26 12:22 | CM.DCFOLLOWU ---
1st attempt 10/26/23, no answer
--- NOTE | 2023-10-27 11:41 | CM.DCFOLLOWU ---
1st attempt, no answer 10/27/23
--- NOTE | 2023-10-28 15:04 | CM.DCFOLLOWU ---
3rd attempt, 10/28/23 no answer 3 attempts made, no answer each time.
== END 2023-10-25 10:33 | disposition home or self-care (01) ==
LOC: ER 17:04 → MS 17:48
PROVIDERS: Internal Medicine Hematology & Oncology; Physician Assistant; Registered Nurse; Admitting Provider Family Medicine; Emergency Provider Emergency Medicine; PCP Nurse Practitioner Family; Visit Provider Family Medicine
DX: D62 Acute posthemorrhagic anemia (principal); R00.0 Tachycardia, unspecified; D69.6 Thrombocytopenia, unspecified; D50.9 Iron deficiency anemia, unspecified; D68.9 Coagulation defect, unspecified; R79.89 Other specified abnormal findings of blood chemistry; K70.30 Alcoholic cirrhosis of liver without ascites; E72.20 Disorder of urea cycle metabolism, unspecified; K85.90 Acute pancreatitis without necrosis or infection, unspecified; R73.9 Hyperglycemia, unspecified; E43 Unspecified severe protein-calorie malnutrition; L03.116 Cellulitis of left lower limb; L03.115 Cellulitis of right lower limb; I10 Essential (primary) hypertension; F10.129 Alcohol abuse with intoxication, unspecified; L25.9 Unspecified contact dermatitis, unspecified cause; R10.10 Upper abdominal pain, unspecified; Y90.6 Blood alcohol level of 120-199 mg/100 ml; Z68.31 Body mass index [BMI] 31.0-31.9, adult
CPT/HCPCS: 36415; 36430; 76700; 80053; 80320; 82140; 82248; 82607; 82728; 82746; 83010; 83540; 83550; 83605; 83615; 83690; 83735; 83880; 84100; 85007; 85014; 85018; 85025; 85027; 85045; 85610; 85730; 86850; 86880; 86900; 86901; 93970; 94761; 96365; 96366; 96368; 96375; 99285; G0328; G0378; J2919; P9016

== ENCOUNTER 2023-11-01 07:47 | Outpatient (RCR) | payer SELFPAY | END 2023-11-11 23:59 | disposition home or self-care (01) | LOC: INF 07:47 | PROVIDERS: PCP Nurse Practitioner Family; Visit Provider Internal Medicine Hematology & Oncology | DX: D72.819 Decreased white blood cell count, unspecified (principal); D64.9 Anemia, unspecified; D69.6 Thrombocytopenia, unspecified; D68.9 Coagulation defect, unspecified; D50.9 Iron deficiency anemia, unspecified; K90.9 Intestinal malabsorption, unspecified; E80.7 Disorder of bilirubin metabolism, unspecified; K76.9 Liver disease, unspecified | CPT/HCPCS: G0463 ==

== ENCOUNTER 2023-11-02 09:37 | Outpatient (OUT) | payer SELFPAY ==
--- OUTSIDE RECORDS SUMMARY | 2023-11-02 09:49 | XMS_ITS | CCD ---
Demographics Address [address] [place] [address] Preferred Language Persian Marital Status Mu-Ism Affiliation Unknown Race Unknown Ethnic Group or Author Organization [facility] Care Team Providers Care Tyre Finisher And Examiner Name Role Phone Don Dallas Unavailable Unavailable None, No PCP Unavailable Unavailable Unknown, Referring Provider Unavailable Unav ailable MARKER, SHAREE Admitting Unavailable MARKER, SHAREE Attending Unavailable MISC, DOCTOR Primary Care Unavailable MARC LEONE V Consulting Unavailable MARKER, SHAREE Consulting Unavailable MACIEJ Martini Attending Provider [phone] Mihir Leary Attending Unavailable Mihir Leary Admitting Unavailable Ana Martini Attending Unavailable Ana Martini Admitting Unavailable Allergies Allergy Classification Reported Allergen(s) Allergy Type Date of Onset Reaction(s) Facility (1 source) NSAIDs drug allergy [facility] [address] [facility] Work Phone: Medications Completed/Discontinued Medications Medication Drug Class(es) Dates Sig (Normalized) Sig (Original) furosemide 40 mg oral tablet (1 source) Loop Diuretic Start: 03-21-2019 take 1 tablet by mouth once daily Furosemide 40 MG Oral Tablet TAKE 1 TABLET DAILY. Quantity: 30 Refills: 3 Don Dallas MD Start : 21-Mar-2019 Active spironolactone 100 mg oral tablet (1 source) Aldosterone Antagonist Start: 03-21-2019 take 1 tablet by mouth once daily Spironolactone 100 MG Oral Tablet TAKE 1 TABLET DAILY. Quantity: 90 Refills: 3 Don Dallas MD Start : 21-Mar-2019 Active Problems Active Problems Problem Classification Problem Date Documented Da te Episodic/Chronic Alcohol-related disorders (4 sources) Alcoholic hepatitis; Translations: [Alcohol abuse] Onset: 03-21-2019 Chronic Alcohol-related disorders (1 source) Ascites due to alcoholic cirrhosis; Translations: [Ascites due to alcoholic cirrhosis] Episodic Deficiency and other anemia (1 source) Other pancytopenia; Translations: [OTHER PANCYTOPENIA] Onset: 03-21-2019 Chronic Diabetes mellitus without complication (1 source) Hyperglycemia; Translations: [Blood glucose elevated] Episodic Past or Other Problems Problem Classification Problem Date Documented Da te Episodic/Chronic Acute posthemorrhagic anemia (1 source) Acute posthemorrhagic anemia; Translations: [ACUTE POSTHEMORRHAGIC ANEMIA] Onset: 03-21-2019 Episodic Fever of unknown origin (4 sources) Fever, unspecified; Translations: [FEVER UNSPECIFIED] Onset: 03-11-2019 Episodic Gastrointestinal hemorrhage (1 source) Melena; Translations: [MELENA] Onset: 03-21-2019 Episodic Malaise and fatigue (1 source) Other malaise; Translations: [OTHER MALAISE] Onset: 03-21-2019 Episodic Other liver diseases (1 source) Abnormal levels of other serum enzymes; Translations: [ABNORMAL LEVELS OTHER SERUM ENZYMES] Onset: 03-21-2019 Episodic Other lower respiratory disease (1 source) Hemoptysis; Translations: [HEMOPTYSIS] Onset: 03-21-2019 Episodic Spondylosis; intervertebral disc disorders; other back problems (1 source) Low back pain; Translations: [LOW BACK PAIN] Onset: 03-21-2019 Episodic NEGATED: Highlighted row has not occurred!Residual codes; unclassified (3 sources) Disease Episodic Results Test Name Value Interpretation Reference Range Facility Direct [place] 10-24-2023 Polyspecific AHG Negative Normal Negative [facility] Comment on above: Result Comment: PERF ORMED BY: [address] [place] [address] PATHOLOGIST DATA COMPILER KIM RITCHIE M.D. Aaron 10-24-2023 L Specimen: [id number] Received: 10/26/23 Status: SEBAS Caraballo Num: [id number] Spec Type: Impression Subm Dr: Mihir Leary MD Tissues: PATHPER Procedures: PATHREVIEW Age/ Patient Sex Location Account Attending Physician Glenn Antoine 48/M LABELL [id number] Mihir Leary MD SPEC NUM: [id number] RECD: 10/26/23 STATUS: SEBAS CARABALLO NUM: [id number] BRAYAN: 10/24/[address]: Mihir Leary MD ENTERED: 10/26/23-[address] [facility] DR: Rojelio,Lab Ana M Vini [facility] SPEC TYPE: Impression DEPT: AGUILA Cota ENTERED BY: [id number] RECV BY: [id number] ORDERED: PATHREVIEW ORDERED: PATHREVIEW Pathologist Review Severe microcytic anemia is noted. Correlation with iron studies is suggested. Thrombocytopenia Is Noted. No Significant Increase In Schistocytes Or Spherocytes Is Identified. Differential Diagnosis Includes Peripheral Etiology (e.g. ITP, Drug-induced) Vs. Bone Marrow Disorder. Clinical [place]. [id number] Specimen: [id number] Received: 10/26/23-1326 Status: SEBAS Caraballo Num: [id number] Spec Type: Impression Subm Dr: Mihir Leary MD Tissues: PATHPER Procedures: PATHREVIEW Patient: Glenn Antoine [id number] (Continued) Signed (signature on file) Patt Leonard MD 10/26/23 1834 [facility] Established Visit (Gastroent erology)on 06-04-2019 Established Visit (Gastroenterology ) Diagnoses/Problems Assessed Ascites due to alcoholic cirrhosis (571.2) (K70.31) Orders Alcoholic hepatitis, Ascites due to alcoholic cirrhosis Hepatology Follow-Up Outpatient Follow-up in 6 months Status: Hold For - Scheduling,Exact Date Requested for: Approx [id number] Ordered;For: Alcoholic hepatitis, Ascites due to alcoholic cirrhosis; Ordered By: Don Dallas Performed: Patient Discussion/Summary Adhere to a low salt diet less than 2 grams of sodium per day Watch for signs of liver disease worsening including swelling in the abdomen and legs, confusion or excessive sleepiness, vomiting or seeing blood in the stools or having black tarry stools. Have blood work and ultrasound every 6 months to check for liver cancer have endoscopy every 3 years to check for large veins in the esophagus and stomach which can cause serious bleeding return to the office in 6 months Provider Impressions We will order MELD/US/AFP every 6 months to assess liver function and survey for hepatocellular carcinoma we will perform EGD to survey for esophageal varices every 3 years. We will see this patient in 6 months The patient was counseled on a low sodium diet and watching for signs and symptoms of decompensation including ascites, lower extremity edema, cognitive impairment and GI bleeding. Chief Complaint Follow up of alcoholic hepatitis History of Present Illness He has been sober since we talked to him. He continues to be on diuretics.He has no fluid overload or cognitive impairment. Upper Gastrointestinal: no abdominal pain, no eructation, no difficulty swallowing, no early satiety, no heartburn, no jaundiced, no nausea, no pain while swallowing, no regurgitation, no vomiting. Lower Gastrointestinal: no abdominal swelling, no bloating, no constipation, no diarrhea, no fecal incontinence, no bowel urgency, no steatorrhea. Liver Disease no alteration in sleep wake cycle, no ankle swelling, no cognitive impairment, no confusion, no icterus, no jaundice, no lower extremity edema, no muscle cramps, no short term memory impairment. Symptom History: Modifying Factors: Associated Symptoms: Skin: there are no skin symptoms. Eyes: there are no eye symptoms. Ears: there are no ear symptoms. Nose: there are no nasal symptoms. Mouth/Throat/Teeth: there are no oral symptoms. Neck: there are no neck symptoms. Cardiovascular: there are no cardiovascular symptoms. Respiratory: there are no respiratory symptoms. Gastrointenstinal: there are no gastrointestinal symptoms. Musculoskeletal: there are no musculoskeletal symptoms. Neurological: there are no neurological symptoms. Endocrine: there are no endocrine symptoms. Heme:Lymph: there are no hematological/lymphatic symptoms. Psychiatric: there are no psychological symptoms. Behavior: there are no behavioral symptoms. Review of Systems Constitutional: no fever, no chills, not feeling tired, no recent weight loss, not feeling poorly and no recent weight gain. ENT: no lymphadenopathy. Cardiovascular: no shortness of breath, no chest pain and no extremity edema. Respiratory: no cough. Gastrointestinal: as noted in HPI. Musculoskeletal: no joint swelling. Integumentary: itching, but no rashes, no skin lesions and was no jaundiced. Neurological: no confusion. All other systems have been reviewed and are negative for complaint. Active Problems Problems Alcohol use disorder, severe, in early remission, in controlled environment (305.03) (F10.21) Alcoholic hepatitis (571.1) (K70.10) Ascites due to alcoholic cirrhosis (571.2) (K70.31) Blood glucose elevated (790.29) (R73.9) Surgical History Problems History of Abdominal paracentesis History of Endoscopy Family History Mother Family history of Alive and well Father Family history of Social History Problems Former consumption of alcohol (V11.3) (Z87.898) a 6-pack of beers a day for the past 24 years. Sober since 03/11/19. Non-smoker (V49.89) (Z78.9) Allergies Medication NSAIDs AVOID IN CIRRHOSIS; Recorded By: Mayra Rea; 04/10/2019 1:49:06 PM Current Meds Medication NameInstruction Furosemide 40 MG Oral TabletTAKE 1 TABLET DAILY. Spironolactone 50 MG Oral TabletTAKE 2 TABLET Daily Vitals Vital Signs Recorded: 85Iav6064 09:26AM Jcedyaunmlq25.6 F Heart Rate87 Wohqfbjq599 Nlcavddtk01 Height5 ft 8 in Denzqa263 lb BMI Lawfhzvazo74.15 BSA Calculated2.12 Physical Exam Constitutional General appearance: In no acute distress . Eyes Anicteric Sclerae . Pulmonary Auscultation of lungs: Clear. Cardiovascular Auscultation of heart: RRR without murmur. Examination of extremities for edema: Normal. Abdomen Soft, non-tender. Bowel sounds normal. No hepatomegaly or splenomegaly. Results/Data Comprehensive Metabolic [id number] 01:02PMSatyBaudilio campos Test NameResultFlagReference Glucose, Serum92 mg/dL74 - 99 Sodium, Dtxmg732 mmol/LL136 - 145 POTASSIUM4.2 mmol/L3.5 - 5.3 Chloride, Serum98 mmol/L98 - 107 Bicarbonate, Serum26 mmol/L21 - 32 Anion Gap, Serum11 mmol/L10 - 20 Blood Urea Nitrogen, Serum13 mg/dL6 - 23 CREATININE0.74 mg/dLSee Below Reference Range: 0.50 - 1.30 Calcium, Serum8.6 mg/dL8.6 - 10.6 Albumin, Serum2.7 g/dLL3.4 - 5.0 ALKALINE UWJXMKSQCYG078 U/L33 - 120 Protein, Total Serum7.1 g/dL6.4 - 8.2 Bilirubin, Serum Total5.1 mg/dLH0.0 - 1.2 ALT (SGPT), Serum62 U/LH10 - 52 Patients treated with Sulfasalazine may generate falsely decreased results for ALT. GFR Non >60 mL/min/1.73m2>60 GFR >60 mL/min/1.73m2>60 CALCULATIONS OF ESTIMATED GFR ARE PERFORMED USING THE MDRD STUDY EQUATION FOR THE IDMS-TRACEABLE CREATININE METHODS. CLIN CHEM 2007;53:766-72 AST50 U/LH9 - 39 IO Hgb [id number] 10:50Demetra Gambino Test NameResultFlagReference IO Hgb A1c5.24.4-6.4% Comprehensive Metabolic Bdbrp26Ofj7010 02:50PMSaBaudilio fischer Test NameResultFlagReference Glucose, Bqnth147 mg/dLH74 - 99 Sodium, Gaoxh507 mmol/LL136 - 145 POTASSIUM4.9 mmol/L3.5 - 5.3 Chloride, Serum95 mmol/LL98 - 107 Bicarbonate, Serum26 mmol/L21 - 32 Anion Gap, Serum12 mmol/L10 - 20 Blood Urea Nitrogen, Serum17 mg/dL6 - 23 CREATININE0.93 mg/dLSee Below Reference Range: 0.50 - 1.30 Calcium, Serum8.6 mg/dL8.6 - 10.6 Albumin, Serum3.0 g/dLL3.4 - 5.0 ALKALINE EIHQKZNGYRO502 U/L33 - 120 Protein, Total Serum7.3 g/dL6.4 - 8.2 Bilirubin, Serum Total6.5 mg/dLH0.0 - 1.2 ALT (SGPT), Serum67 U/LH10 - 52 Patients treated with Sulfasalazine may generate falsely decreased results for ALT. GFR Non >60 mL/min/1.73m2>60 GFR >60 mL/min/1.73m2>60 CALCULATIONS OF ESTIMATED GFR ARE PERFORMED USING THE MDRD STUDY EQUATION FOR THE IDMS-TRACEABLE CREATININE METHODS. CLIN CHEM 2007;53:766-72 AST81 U/LH9 - 39 PT/[id number] 08:31Lorena Patel Test NameResultFlagReference PROTHROMBIN TIME29.8 secH9.7 - 12.7 PT, INR2.6H0.9 - 1.1 Comprehensive Metabolic Lbmup82Lcj4689 08:31Lorena Patel Test NameResultFlagReference Glucose, Serum89 mg/dL74 - 99 Sodium, Owjkr395 mmol/LL136 - 145 POTASSIUM4.0 mmol/L3.5 - 5.3 Chloride, Dcapf849 mmol/L98 - 107 Bicarbonate, Serum23 mmol/L21 - 32 Anion Gap, Serum10 mmol/L10 - 20 Blood Urea Nitrogen, Serum13 mg/dL6 - 23 CREATININE0.71 mg/dLSee Below Reference Range: 0.50 - 1.30 Calcium, Serum8.4 mg/dLL8.6 - 10.6 Albumin, Serum2.7 g/dLL3.4 - 5.0 ALKALINE RAPAJIXVAGA41 U/L33 - 120 Protein, Total Serum7.4 g/dL6.4 - 8.2 Bilirubin, Serum Total8.4 mg/dLH0.0 - 1.2 ALT (SGPT), Serum26 U/L10 - 52 Patients treated with Sulfasalazine may generate falsely decreased results for ALT. GFR Non >60 mL/min/1.73m2>60 GFR >60 mL/min/1.73m2>60 CALCULATIONS OF ESTIMATED GFR ARE PERFORMED USING THE MDRD STUDY EQUATION FOR THE IDMS-TRACEABLE CREATININE METHODS. CLIN CHEM 2007;53:766-72 AST56 U/LH9 - 39 Complete Blood Count + [id number] 08:31Lorena Patel Test NameResultFlagReference White Blood Cell Count12.7 x10E9/LH4.4 - 11.3 Red Blood Cell Count4.02 x10E12/LLSee Below Reference Range: 4.50 - 5.90 Nucleated Erythrocyte Count0.0 /100 WBC0.0-0.0 Vwckexocjc25.3 g/dLLSee Below Reference Range: 13.5 - 17.5 HCT32.1 %LSee Below Reference Range: 41.0 - 52.0 MCV80 fL80 - 100 MCHC32.1 g/dLSee Below Reference Range: 32.0 - 36.0 Platelet Irjdn425 x10E9/L150 - 450 RDW-CV25.2 %HSee Below Reference Range: 11.5 - 14.5 Neutrophil %76.4 %See Below Reference Range: 40.0 - 80.0 % Automated Immature Gran0.5 %0.0 - 0.9 Percent differential counts (%) should be interpreted in the context of the absolute cell counts (cells/L). Lymphocyte %13.9 %See Below Reference Range: 13.0 - 44.0 Monocyte %8.8 %2.0 - 10.0 Eosinophil %0.2 %0.0 - 6.0 Basophil %0.2 %0.0 - 2.0 Neutrophil Count9.72 x10E9/LHSee Below Reference Range: 1.20 - 7.70 Lymphocyte Count1.77 x10E9/LSee Below Reference Range: 1.20 - 4.80 Monocyte Count1.12 x10E9/LHSee Below Reference Range: 0.10 - 1.00 Eosinophil Count0.03 x10E9/LSee Below Reference Range: 0.00 - 0.70 Basophil Count0.02 x10E9/LSee Below Reference Range: 0.00 - 0.10 Automated WBC differential has been confirmed by manual smear. RBC Wjcjpgefik64Cjw4651 08:31AMLorena Menchaca Test NameResultFlagReference Red Blood Cell MorphologySee Below Red Blood Cell FragmentsFew Target CellsFew OvalocytesFew Delfina CellMany GIANT PLATELETSFew Signatures Electronically signed by : Don Dallas MD; Jun 04 2019 10:30AM EST (Author) Normal [facility] 06-04-2019 INR Coag (PPP) [Relative time] 2.0 {INR} above high threshold 0.9 - 1.1 [facility] [address] Work Phone: PT Coag (PPP) [Time] 22.0 {sec} above high threshold 9.7 - 12.7 [facility] [employer] Work Phone: Hepatic Function Panelon Albumin BCP dye [Mass/Vol] 2.9 g/dL below low threshold 3.4 - 5.0 [facility] [address] Work Phone: ALP [Catalytic activity/Vol] 81 U/L 33 - 120 [facility] [address] Work Phone: ALT With P-5'-P [Catalytic activity/Vol] 9 U/L below low threshold 10 - 52 [facility] [employer] [facility] Work Phone: Comment on above: Patients treated wit h Sulfasalazine may generate falsely decreased results for ALT. AST With P-5'-P [Catalytic activity/Vol] 24 U/L 9 - 39 [facility] [address] Work Phone: Bilirubin [Mass/Vol] 2.8 mg/dL above high threshold 0.0 - 1.2 [facility] [address] Work Phone: Bilirubin.direct [Mass/Vol] 1.1 mg/dL above high threshold 0.0 - 0.3 [facility] melanie[facility]essica [facility] Work Phone: Protein [Mass/Vol] 6.7 g/dL 6.4 - 8.2 [facility] [address] Work Phone: Renal Function Panelon 06-04 Anion gap [Moles/Vol] 12 mmol/L 10 - 20 [facility] [address] Work Phone: Calcium [Mass/Vol] 9.1 mg/dL 8.6 - 10.6 [facility]-Kyriela jessica [address] Work Phone: Chloride [Moles/Vol] 104 mmol/L 98 - 107 [facility]Kyriela jessica [address] Work Phone: CO2 [Moles/Vol] 22 mmol/L 21 - 32 [facility] ente melanieogy-Ese lopez [address] Work Phone: Creatinine [Mass/Vol] 0.89 mg/dL See Below [facility]-Kyriela jessica [address] Work Phone: Comment on above: Reference Range: 0.5 0 - 1.30 Glucose [Mass/Vol] 110 mg/dL above high threshold 74 - 99 [facility] jess[facility] [address] [place] [address] Work Phone: Phosphate [Mass/Vol] 4.7 mg/dL 2.5 - 4.9 [facility]-Kyriela jessica [address] [place] [address] Work Phone: Comment on above: The performance dhruv acteristics of phosphorus testing in heparinized plasma have been validated by the individual laboratory site where testing is performed. Testing on heparinized plasma is not approved by the FDA; however, such approval is not necessary. Potassium [Moles/Vol] 4.4 mmol/L 3.5 - 5.3 [facility] jessica [address] [place], [place] [address]I Work Phone: Sodium [Moles/Vol] 134 mmol/L below low threshold 136 - 145 [facility]Staci l[facility] Work Phone: Urea nitrogen [Mass/Vol] 10 mg/dL 6 - 23 [facility]St[facility] l[facility] Work Phone: Renal Function Panel >60 >60 [facility]St[facility] lopez [facility] Work Phone: Comment on above: CALCULATIONS OF GISELLE MATED GFR ARE PERFORMED USING THE MDRD STUDY EQUATION FOR THE IDMS-TRACEABLE CREATININE METHODS. CLIN CHEM 2007;53:766-72 Established Visit (Gastroent erology)on 04-10-2019 Established Visit (Gastroenterology ) Chief Complaint New patient here for evaluation of cirrhosis History of Present Illness He was admitted recently with alcoholic hepatitis in the setting of a GI bleed. No clear source was identified. He has been sober since he left the hospital. He was put on a prednisone taper. Fluid overload has been improving on diuretics and salt restriction. He says his cognitive function is good. Upper Gastrointestinal: no abdominal pain, no eructation, no difficulty swallowing, no early satiety, no heartburn, no jaundiced, no nausea, no pain while swallowing, no regurgitation, no vomiting. Lower Gastrointestinal: abdominal swelling, bloating, but no constipation, no diarrhea, no fecal incontinence, no bowel urgency, no steatorrhea. Liver Disease no alteration in sleep wake cycle, no ankle swelling, no cognitive impairment, no confusion, no icterus, no increase in abdominal girth, no jaundice, no lower extremity edema, no muscle cramps. Symptom History: Modifying Factors: Associated Symptoms: Skin: there are no skin symptoms. Eyes: there are no eye symptoms. Ears: there are no ear symptoms. Nose: there are no nasal symptoms. Mouth/Throat/Teeth: there are no oral symptoms. Neck: there are no neck symptoms. Cardiovascular: there are no cardiovascular symptoms. Respiratory: there are no respiratory symptoms. Gastrointenstinal: there are no gastrointestinal symptoms. Musculoskeletal: there are no musculoskeletal symptoms. Neurological: there are no neurological symptoms. Endocrine: there are no endocrine symptoms. Heme:Lymph: there are no hematological/lymphatic symptoms. Psychiatric: there are no psychological symptoms. Review of Systems Constitutional: no fever. Constitutional: no fever, no chills, not feeling tired and no recent weight loss. Eyes: yellow sclera/jaundice. ENT: nosebleeds, but no lymphadenopathy. Cardiovascular: no shortness of breath and no chest pain. Respiratory: no cough. Gastrointestinal: as noted in HPI. Musculoskeletal: no joint swelling. Integumentary: was jaundiced, but no rashes and no skin lesions. Neurological: no headache. Psychiatric: no anxiety and no depression. Hematologic/Lymphatic: no tendency for easy bleeding and no tendency for easy bruising. Active Problems Alcohol use disorder, severe, in early remission, in controlled environment (305.03) (F10.21) Alcoholic hepatitis (571.1) (K70.10) Ascites due to alcoholic cirrhosis (571.2) (K70.31) Blood glucose elevated (790.29) (R73.9) Surgical History History of Abdominal paracentesis History of Endoscopy Family History Family history of Alive and well Family history of Social History Former consumption of alcohol (V11.3) (Z87.898) a 6-pack of beers a day for the past 24 years. Sober since 03/11/19. Non-smoker (V49.89) (Z78.9) Allergies NSAIDs AVOID IN CIRRHOSIS; Recorded By: Mayra Rea; 04/10/2019 1:49:06 PM Current Meds Folic Acid 1 MG Oral Tablet; TAKE 1 TABLET DAILY DIRECTED; Therapy: 28Mar2019 to (Evaluate:26Jun2019); Last Rx:28Mar2019; Status: ACTIVE - Transmit to Pharmacy - Awaiting Verification Ordered Rx By: Demetra Feliciano; Dispense: 30 Days ; #:30 Tablet; Refill: 2;For: Alcoholic hepatitis; CALEB = N; Print Rx Thiamine HCl - 100 MG Oral Tablet; TAKE 1 TABLET DAILY; Therapy: 28Mar2019 to (Evaluate:26Jun2019); Last Rx:28Mar2019; Status: ACTIVE - Transmit to Pharmacy - Awaiting Verification Ordered Rx By: Demetra Feliciano; Dispense: 30 Days ; #:30 Tablet; Refill: 2;For: Alcoholic hepatitis; CALEB = N; Print Rx Furosemide 40 MG Oral Tablet; TAKE 1 TABLET DAILY; Therapy: 21Mar2019 to (Evaluate:15Mar2020) Recorded Dispense: 90 Days ; #:30 Tablet; Refill: 3;For: Ascites due to alcoholic cirrhosis; CALEB = N; Record; Last Updated By: Mayra Rea; 04/10/2019 1:47:05 PM Spironolactone 100 MG Oral Tablet; TAKE 1 TABLET DAILY; Therapy: 21Mar2019 Recorded Dispense: 0 Days ; #: Sufficient Tablet; Refill: 0;For: Ascites due to alcoholic cirrhosis; CALEB = N; Record; Last Updated By: Mayra Rea; 04/10/2019 1:47:05 PM Pantoprazole Sodium 20 MG Oral Tablet Delayed Release; TAKE 1 TABLET DAILY; Therapy: 21Mar2019 to (Evaluate:17Sep2019) Recorded Dispense: 90 Days ; #:90 Tablet; Refill: 1; CALEB = N; Record; Last Updated By: Pauline Blanco; 03/28/2019 10:08:27 AM Vitals Vital Signs Recorded: 10Apr2019 01:29PM Kzhwsnvpzjp48.5 F Heart Rate98 Xjdlmqdv861 Kzjazgwbt28 Height5 ft 8 in Ihjaqt409 lb BMI Uonwnlhkhr00.06 BSA Calculated2.14 Physical Exam Constitutional General appearance: In no acute distress . Eyes Conjunctiva and lids: Abnormal. icterus. Anicteric Sclerae . Pulmonary Respiratory effort: No increased work of breathing or signs of respiratory distress. Auscultation of lungs: Clear. Cardiovascular Auscultation of heart: RRR without murmur. Examination of extremities for edema: Normal. Abdomen Abdomen: Abnormal. shifting dullness. Bowel sounds normal. No hepatomegaly or splenomegaly. Results/Data Comprehensive Metabolic [id number] 01:02PMSaBaudilio fischer Test NameResultFlagReference Glucose, Serum92 mg/dL74 - 99 Sodium, Swyka493 mmol/LL136 - 145 POTASSIUM4.2 mmol/L3.5 - 5.3 Chloride, Serum98 mmol/L98 - 107 Bicarbonate, Serum26 mmol/L21 - 32 Anion Gap, Serum11 mmol/L10 - 20 Blood Urea Nitrogen, Serum13 mg/dL6 - 23 CREATININE0.74 mg/dLSee Below Reference Range: 0.50 - 1.30 Calcium, Serum8.6 mg/dL8.6 - 10.6 Albumin, Serum2.7 g/dLL3.4 - 5.0 ALKALINE ZUAPMHIAJMS487 U/L33 - 120 Protein, Total Serum7.1 g/dL6.4 - 8.2 Bilirubin, Serum Total5.1 mg/dLH0.0 - 1.2 ALT (SGPT), Serum62 U/LH10 - 52 Patients treated with Sulfasalazine may generate falsely decreased results for ALT. GFR Non >60 mL/min/1.73m2>60 GFR >60 mL/min/1.73m2>60 CALCULATIONS OF ESTIMATED GFR ARE PERFORMED USING THE MDRD STUDY EQUATION FOR THE IDMS-TRACEABLE CREATININE METHODS. CLIN CHEM 2007;53:766-72 AST50 U/LH9 - 39 Comprehensive Metabolic [id number] 02:50PMSaBaudilio fischer Test NameResultFlagReference Glucose, Uvrji203 mg/dLH74 - 99 Sodium, Slxsj825 mmol/LL136 - 145 POTASSIUM4.9 mmol/L3.5 - 5.3 Chloride, Serum95 mmol/LL98 - 107 Bicarbonate, Serum26 mmol/L21 - 32 Anion Gap, Serum12 mmol/L10 - 20 Blood Urea Nitrogen, Serum17 mg/dL6 - 23 CREATININE0.93 mg/dLSee Below Reference Range: 0.50 - 1.30 Calcium, Serum8.6 mg/dL8.6 - 10.6 Albumin, Serum3.0 g/dLL3.4 - 5.0 ALKALINE [id number] U/L33 - 120 Protein, Total Serum7.3 g/dL6.4 - 8.2 Bilirubin, Serum Total6.5 mg/dLH0.0 - 1.2 ALT (SGPT), Serum67 U/LH10 - 52 Patients treated with Sulfasalazine may generate falsely decreased results for ALT. GFR Non >60 mL/min/1.73m2>60 GFR >60 mL/min/1.73m2>60 CALCULATIONS OF ESTIMATED GFR ARE PERFORMED USING THE MDRD STUDY EQUATION FOR THE IDMS-TRACEABLE CREATININE METHODS. CLIN CHEM 2007;53:766-72 AST81 U/LH9 - 39 PT/[id number] 08:31AMLorena Menchaca Test NameResultFlagReference PROTHROMBIN TIME29.8 secH9.7 - 12.7 PT, INR2.6H0.9 - 1.1 Complete Blood Count + Yzjsbnkprioy81Naz2929 08:31Lorena Patel Test NameResultFlagReference White Blood Cell Count12.7 x10E9/LH4.4 - 11.3 Red Blood Cell Count4.02 x10E12/LLSee Below Reference Range: 4.50 - 5.90 Nucleated Erythrocyte Count0.0 /100 WBC0.0-0.0 Gfeszmbqyn83.3 g/dLLSee Below Reference Range: 13.5 - 17.5 HCT32.1 %LSee Below Reference Range: 41.0 - 52.0 MCV80 fL80 - 100 MCHC32.1 g/dLSee Below Reference Range: 32.0 - 36.0 Platelet Rjngl900 x10E9/L150 - 450 RDW-CV25.2 %HSee Below Reference Range: 11.5 - 14.5 Neutrophil %76.4 %See Below Reference Range: 40.0 - 80.0 % Automated Immature Gran0.5 %0.0 - 0.9 Percent differential counts (%) should be interpreted in the context of the absolute cell counts (cells/L). Lymphocyte %13.9 %See Below Reference Range: 13.0 - 44.0 Monocyte %8.8 %2.0 - 10.0 Eosinophil %0.2 %0.0 - 6.0 Basophil %0.2 %0.0 - 2.0 Neutrophil Count9.72 x10E9/LHSee Below Reference Range: 1.20 - 7.70 Lymphocyte Count1.77 x10E9/LSee Below Reference Range: 1.20 - 4.80 Monocyte Count1.12 x10E9/LHSee Below Reference Range: 0.10 - 1.00 Eosinophil Count0.03 x10E9/LSee Below Reference Range: 0.00 - 0.70 Basophil Count0.02 x10E9/LSee Below Reference Range: 0.00 - 0.10 Automated WBC differential has been confirmed by manual smear. RBC [id number] 08:31Lorena Patel Test NameResultFlagReference Red Blood Cell MorphologySee Below Red Blood Cell FragmentsFew Target CellsFew OvalocytesFew Norco CellMany GIANT PLATELETSFew Diagnoses/Problems Ascites due to alcoholic cirrhosis (571.2) (K70.31) Orders Ascites due to alcoholic cirrhosis Endoscopy - Upper GI ; every 2 years; Last 13Mar2019; Next 13Mar2021; Status:Active For: 'Ascites due to alcoholic cirrhosis'Ordered By: 'Don Dallas' Provider Impressions This patient has cirrhosis and we discussed natural history. we emphasized the importance of health maintenance interventions to prevent complications of liver disease including a) lifelong abstinence b) MELD/US/AFP every 6 months to assess liver function and survey for HCC c) EGD to survey for esophageal varices every 3 years d) watch out for symptoms of decompensated liver disease including cognitive impairment, excessive somnolence, lower extremity edema and increase in abdominal girth e) follow up in the office every 6 months f) taper prednisone to off today Patient Discussion/Summary taper prednisone to off We will order MELD/US/AFP every 6 months to assess liver function and survey for hepatocellular carcinoma we will perform EGD to survey for esophageal varices every 3 years. We will see this patient in 6 months The patient was counseled on a low sodium diet and watching for signs and symptoms of decompensation including ascites, lower extremity edema, cognitive impairment and GI bleeding. Signatures Electronically signed by : Don Dallas MD; Apr 10 2019 1:53PM EST (Author) Normal [facility] URINE PROFILEon 9 Bilirubin [Mass/Vol] SMALL Normal NEGATIVE [facility] Comment on above: Performed By: #### O BSCRN #### [facility] [address] [place] [address] Dennys Cheyenne BLOOD Negative Normal NEGATIVE [facility] Comment on above: Performed By: #### O BSCRN #### [facility] [address] [place], [place] [id number] Dennys Cheyenne Clarity (U) CLEAR Normal [facility] Comment on above: Performed By: #### O BSCRN #### [facility] [address] [place] [address] Dennys Cheyenne Color (U) YELLOW Normal YELLOW [facility] Comment on above: Performed By: #### O BSCRN #### [facility] [address] [place] [address] Dennys Cheyenne ERUAHD A micrscopic examina tion will be performed if indicated. Normal [facility] Comment on above: Performed By: #### O BSCRN #### [facility] [address] [place] [address] Dennys Cheyenne Glucose [Mass/Vol] Negative Normal NEGATIVE [facility] Comment on above: Performed By: #### O BSCRN #### [facility] [address] [place] [address] Dennys Cheyenne Ketones Ql (U) Negative Normal NEGATIVE [facility] Comment on above: Performed By: #### O BSCRN #### [facility] [address] [place] [address] Dennys Cheyenne Nitrite Ql (U) Negative Normal NEGATIVE [facility] Comment on above: Performed By: #### O BSCRN #### [facility] [address] [place] [address] Dennys Cheyenne pH (Bld) 7.0 Normal 5-9 [facility] Comment on above: Performed By: #### O BSCRN #### [facility] [address] [place] [address] Dennys Cheyenne Protein (U) [Mass/Vol] Negative Normal [facility] Comment on above: Performed By: #### O BSCRN #### [facility] [address] [place] [address] Dennys Cheyenne SPEC GRAVITY <=1.005 Normal 1.005-<=1.02 5 [facility] Comment on above: Performed By: #### O BSCRN #### [facility] [address] [place] [address] Dennys Cheyenne UR MICRO IND NOT INDICATED Normal [facility] Comment on above: Performed By: #### O BSCRN #### [facility] [address] [place] [address] Dennys Cheyenne Urobilinogen Qn (U) 2.0 EU/dl Normal [facility] Comment on above: Performed By: #### O BSCRN #### [facility] [address] [place], [place] [id number] Dennys Quinn WBC (Bld) [#/Vol] Negative Normal NEGATIVE [facility] Comment on above: Performed By: #### O BSCRN #### [facility] [address] [place], [place] [address] Dennys Quinn FRESH FROZ PLASMAon 03-12-20 19 ABO and Rh group Nom (Bld) Unit Blood Type O Neg Unit Number [id number] Status Information Transfused Product ID FFP Product Code [id number] Unit Blood Type A Pos Unit Number [id number] Status Information Transfused Product ID FFP Product Code [id number] Normal [facility] Comment on above: Performed By: #### O BSCRN #### [facility] [address] [place], [place] [address] Dennys Quinn PRBC LEUKOREDUCEDon 03-12-20 19 PRBC LEUKOREDUCED Cross Match Result Compatible Unit Blood Type O Neg Unit Number [id number] Status Information Released Specimen Exp Date Product ID Red Blood Cells Product Code [id number] Cross Match Result Compatible Unit Blood Type O Neg Unit Number [id number] Status Information Released Specimen Exp Date Product ID Red Blood Cells Product Code [id number] Cross Match Result Compatible Unit Blood Type O Pos Unit Number [id number] Status Information Transfused Product ID Red Blood Cells Product Code [id number] Cross Match Result Compatible Unit Blood Type O Pos Unit Number [id number] Status Information Transfused Product ID Red Blood Cells Product Code [id number] Normal [facility] Comment on above: Performed By: #### O BSCRN #### [facility] [address] [place], [place] [id number] Dennys Quinn BNPon 03-11-2019 Natriuretic peptide B (Bld) [Mass/Vol] 196.0 pg/mL Normal <=450.0 [facility] Comment on above: Performed By: #### B MP, BNP, LIPA, LIVER, CMADM #### [facility] [address] [place], [place] [address] Dennys Quinn CARDIAC KVNG ADMITon 019 CK [Catalytic activity/Vol] 279 U/L Critically high 55-170 [facility] Comment on above: Result Comment: TEST REPEATED. CRITICAL VALUE VERIFIED Performed By: #### B MP, BNP, LIPA, LIVER, CMADM #### [facility] [address] [place] [address] Dennys Quinn CK.MB [Mass/Vol] 1.50 ng/mL Normal <=2.37 [facility] Comment on above: Performed By: #### B MP, BNP, LIPA, LIVER, CMADM #### [facility] [address] [place] [address] Dennys Quinn INR Coag (Bld) [Relative time] SEE BELOW Normal [facility] Comment on above: Result Comment: <0.0 34 ng/ml NEGATIVE 0.034-0.119 INDETERMINATE 0.120 AMI CUT OFF Performed By: #### B MP, BNP, LIPA, LIVER, CMADM #### [facility] [address] [place] [address] Dennys Quinn ELYSIA 177.0 ng/mL Critically high <=121.0 [facility] Comment on above: Performed By: #### B MP, BNP, LIPA, LIVER, CMADM #### [facility] [address] [place] [address] Dennyscatherine Quinn TROP 0.080 ng/mL Critically high <=0.034 [facility] Comment on above: Result Comment: TEST REPEATED. CRITICAL VALUE VERIFIED Performed By: #### B MP, BNP, LIPA, LIVER, CMADM #### [facility] [address] [place] [address] Dennys Cheyenne CBC W MANUAL DIFFon 03-11-20 19 Anisocytosis Ql (Bld) SLIGHT Normal [facility] Comment on above: Performed By: #### C JUAN M #### [facility] [address] [place] [address] Dennyscatherine Quinn ATYPICAL LYMPH # Normal [facility] Comment on above: Performed By: #### C JUAN M #### [facility] [address] [place] [address] Dennyscatherine Quinn ATYPICAL LYMPH % Normal [facility] Comment on above: Performed By: #### Gabriele MCGOWAN #### [facility] [address] [id number] Dennys Cheyenne BAND # 0.1 103/ul Normal 0.0-0.3 [facility] Comment on above: Performed By: #### Gabriele MCGOWAN #### [facility] [address] [place], [place] [address] Dennys Cheyenne BAND % 1 % Normal 0-5 [facility] Comment on above: Performed By: #### Gabriele MCGOWAN #### [facility] [address] [place] [address] Dennys Cheyenne BASOM # 0.17 103/ul Critically high 0.00-0.10 [facility] Comment on above: Performed By: #### Gabriele MCGOWAN #### [facility] [address] [place] [address] Dennys Cheyenne BASOM % 2.0 % Normal 0.2-2.0 [facility] Comment on above: Performed By: #### Gabriele MCGOWAN #### [facility] [address] [place], [place] [address] Dennys Cheyenne BLAST # Normal [facility] Comment on above: Performed By: #### Gabriele MCGOWAN #### [facility] [address] [place], [place] [address] Dennys Cheyenne BLAST % Normal [facility] Comment on above: Performed By: #### Gabriele MCGOWAN #### [facility] [address] [place], [place] [address] Dennys Cheyenne CORRECTED WBC Normal 4.0-11.0 [facility] Comment on above: Performed By: #### Gabriele MCGOWAN #### [facility] [address] [place], [place] [address] Dennys Cheyenne Eosinophils (Bld) [#/Vol] 0.17 103/ul Normal 0.00-0.70 [facility] Comment on above: Performed By: #### Gabriele MCGOWAN #### [facility] [address] [place], [place] [address] Dennys Cheyenne Eosinophils/100 WBC (Bld) 2.0 % Normal 0.9-7.0 [facility] Comment on above: Performed By: #### C JUAN M #### [facility] [address] [address] Dennys Quinn Erythrocyte distribution width (RBC) [Ratio] 18.2 % Critically high 11.0-15.0 [facility] Comment on above: Performed By: #### C JUAN M #### [facility] [address] [place] [address] Dennys Quinn Hematocrit (Bld) [Volume fraction] 13.1 % Critically low 42.0-54.0 [facility] Comment on above: Result Comment: Test Repeated. Critical Value Verified Performed By: #### C JUAN M #### [facility] [address] [place] [address] Dennys Quinn Hemoglobin (Bld) [Mass/Vol] 4.0 g/dl Critically low 14.0-18.0 [facility] Comment on above: Result Comment: Test Repeated. Critical Value Verified Performed By: #### C JUAN M #### [facility] [address] [place] [address] Dennys Quinn HYPERSEG NEUT SLIGHT Normal [facility] Comment on above: Performed By: #### Gabriele MCGOWAN #### [facility] [address] [place] [address] Dennys Quinn HYPOCHROMASIA 3+ Normal [facility] Comment on above: Performed By: #### C JUAN M #### [facility] [address] [place] [address] Dennys Cheyenne LYMPHM # 1.76 103/ul Normal 1.20-3.80 [facility] Comment on above: Performed By: #### C JUAN M #### [facility] [address] [place] [address] Dennys Cheyenne LYMPHM% 21.0 % Normal 20.5-60.0 [facility] Comment on above: Performed By: #### C JUAN M #### [facility] [address] [place] [address] Dennys Quinn MCH (RBC) [Entitic mass] 21.3 pg Critically low 25.9-34.0 [facility] Comment on above: Performed By: #### C JUAN M #### [facility] [address] [place] [address] Dennys Quinn MCHC (RBC) [Mass/Vol] 30.5 g/dl Normal 29.9-35.2 [facility] Comment on above: Performed By: #### C JUAN M #### [facility] [address] [place] [address] Dennyscatherine Quinn MCV (RBC) [Entitic vol] 69.7 fL Critically low 80.0-94.0 [facility] Comment on above: Performed By: #### C JUAN M #### [facility] [address] [place] [address] Dennys Cheyenne METAMYELOCYTE # Normal [facility] Comment on above: Performed By: #### Gabriele MCGOWAN #### [facility] [address] [place] [address] Dennys Cheyenne METAMYELOCYTE % Normal [facility] Comment on above: Performed By: #### Gabriele MCGOWAN #### [facility] [address] [place] [address] Dennys Cheyenne MICROCYTOSIS 2+ Normal [facility] Comment on above: Performed By: #### Gabriele MCGOWAN #### [facility] [address] [place] [address] Dennys Cheyenne MONOM# 0.25 103/ul Critically low 0.30-0.80 [facility] Comment on above: Performed By: #### Gabriele MCGOWAN #### [facility] [address] [place] [address] Dennys Cheyenne MONOM% 3.0 % Normal 1.7-12.0 [facility] Comment on above: Performed By: #### Gabriele MCGOWAN #### [facility] [address] [place] [address] Dennys Cheyenne MYELOCYTE # Normal [facility] Comment on above: Performed By: #### Gabriele MCGOWAN #### [facility] [address] [place] [address] Ednnys Cheyenne MYELOCYTE % Normal [facility] Comment on above: Performed By: #### C BCMAN #### [facility] [address] [place], [place] [address] Dennys Cheeynne NRBC Normal [facility] Comment on above: Performed By: #### Gabriele MCGOWAN #### [facility] [address] [place] [address] Dennys Cheyenne OVALOCYTES SLIGHT Normal [facility] Comment on above: Performed By: #### Gabriele MCGOWAN #### [facility] [address] [place], [place] [address] Dennyscatherine Quinn Platelet mean volume (Bld) [Entitic vol] 0.0 fL Critically low 9.5-13.5 [facility] Comment on above: Performed By: #### Gabriele MCGOWAN #### [facility] [address] [place] [address] Dennys Cheyenne Platelets (Bld) [#/Vol] 24 103/ul Critically low 150-450 [facility] Comment on above: Result Comment: Test Repeated. Critical Value Verified Performed By: #### Gabriele MCGOWAN #### [facility] [address] [place] [address] Dennyscatherine Quinn RBC (Bld) [#/Vol] 1.88 106/ul Critically low 4.70-6.10 [facility] Comment on above: Performed By: #### Gabriele MCGOWAN #### [facility] [address] [place] [address] Dennyscatherine Quinn SEG # 5.96 103/ul Normal 1.40-6.50 [facility] Comment on above: Performed By: #### Gabriele MCGOWAN #### [facility] [address] [place] [address] Dennyscatherine Quinn Segmented neutrophils/100 WBC (Bld) 71.0 % Normal 43.0-75.0 [facility] Comment on above: Performed By: #### Gabriele MCGOWAN #### [facility] [address] [place] [address] Dennys Cheyenne STOMATOCYTES SLIGHT Normal [facility] Comment on above: Performed By: #### Gabriele MCGOWAN #### [facility] [address] [place] [address] Dennys Cheyenne TARGET CELLS 2+ Normal [facility] Comment on above: Performed By: #### C BCMAN #### [facility] [address] [place], [place] [address] Dennys Quinn WBC (Bld) [#/Vol] 8.4 103/ul Normal 4.0-11.0 [facility] Comment on above: Performed By: #### C BCMAN #### [facility] [address] [place], [place] [address] Dennys Quinn CTA CHEST CT ABD/PELVIS Won 03-11-[address] ABD/PELVIS W Patient: GLENN ANTOINE Exam Date: 03/11/2019 : 1975 Gender:M Ordering : DR SHAREE BARBER D.O. Admission #: [id number] Family : Order #: [id number] CLICK HERE TO VIEW EXAM RADIOLOGY REPORT PROCEDURE: CTA CHEST CT ABDOMEN AND PELVIS WITH AND WITHOUT COMPARISON: None. INDICATIONS: Acute hemoptysis, chills, decreased appetite; critical hemoglobin levels TECHNIQUE: After obtaining the patient's consent, CT images of the chest, abdomen and pelvis were obtained with non-ionic intravenous contrast material. Axial, Coronal, and Sagittal images. Multi-planar reformatted/3-D images were created to optimize visualization of vascular anatomy. DOSE: 100cc Omnipaque 350; 2213 mGycm FINDINGS: VASCULATURE: No pulmonary embolism or abnormal opacity. LUNGS: No visible pulmonary disease. PLEURA: No mass, effusion, or pneumothorax. OLIVIA: No mass or adenopathy. MEDIASTINUM: No mass or adenopathy. CARDIAC: No enlargement, pericardial effusion, or pericardial thickening. CHEST WALL: No mass or axillary adenopathy. AORTA/VASCULAR: No aneurysm or dissection. Esophageal and right upper quadrant varices CELIAC ARTERY: Normal celiac vessels. SMA: Normal mesenteric vessels. RENAL ARTERIES: Normal renal vessels. LIVER: Heterogeneous attenuation with no focal mass. Nodular contour. BILIARY: No visible dilatation or calcification. PANCREAS: No lesion, fluid collection, ductal dilatation, or atrophy. SPLEEN: No enlargement or focal lesion. ADRENALS: No mass or enlargement. KIDNEYS: No mass, obstruction, or calcification. BOWEL/MESENTERY: No visible mass, obstruction, or bowel wall thickening. RETROPERITONEUM: No mass or adenopathy. ABDOMINAL WALL: No mass or hernia. BONES: No bony lesion or fracture. OTHER: Mild ascites with a perihepatic and perisplenic distribution CONCLUSION: 1. 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 on 03/11/2019 at 21:32 Approved by: Marc Leone M.D. on 03/11/2019 at 21:41 Normal [facility] D-DIMERon 03-11-2019 D-DIMER COMMENTS SEE BELOW Normal [facility] Comment on above: Result Comment: Incr eases in D-Dimer concentration observed with thromboembolic events can be variable due to localization, size, and age of the thrombus. Therefore, a thromboembolic event cannot be diagnosed with certainty on the basis of the reference range. D-Dimers may also be elevated for a variety of disorders including: advanced age, , coronary disease, cancer, liver disease, infection, inflammation, hematoma, DIC, trauma, post-surgery, diabetes, thrombolytic or anticoagulant therapy, stress, and generalizd hospitalization. Performed By: #### O BSCRN #### [facility] [address] [place] [address] Cheyenne Fibrin D-dimer FEU IA (Bld) [Mass/Vol] 4.38 ug/mL Critically high 0.19-0.50 [facility] Comment on above: Result Comment: Test Repeated. Critical Value Verified Performed By: #### O BSCRN #### [facility] [address] [place], [place] [address] LACTATE/LACTIC ACIDon 2018 Lactate [Moles/Vol] 2.5 mmol/L Critically high 0.7-2.1 [facility] Comment on above: Performed By: #### L ACT #### [facility] [address] [place] [address] Dennys Cheyenne LIPASEon 03-11-2019 Lipase [Catalytic activity/Vol] 341.0 U/L Critically high 23.0-300.0 [facility] Comment on above: Performed By: #### B MP, BNP, LIPA, LIVER, CMADM #### [facility] [address] [place], [place] [address] Cheyenne LIVER PROFILEon 03-11-2019 Albumin [Mass/Vol] 2.2 g/dL Critically low 3.5-5.0 [facility] Comment on above: Performed By: #### B MP, BNP, LIPA, LIVER, CMADM #### [facility] [address] [address] Dennys Cheyenne Albumin/Globulin [Mass ratio] 0.4 {ratio} Normal [facility] Comment on above: Performed By: #### B MP, BNP, LIPA, LIVER, CMADM #### [facility] [address] [address] Dennys Cheyenne ALP [Catalytic activity/Vol] 80 U/L Normal 38-126 [facility] Comment on above: Performed By: #### B MP, BNP, LIPA, LIVER, CMADM #### [facility] [address] [address] Dennys Cheyenne ALT [Catalytic activity/Vol] 19 U/L Critically low 21-72 [facility] Comment on above: Performed By: #### B MP, BNP, LIPA, LIVER, CMADM #### [facility] [address] [address] Dennys Cheyenne AST [Catalytic activity/Vol] 82 U/L Critically high 17-59 [facility] Comment on above: Performed By: #### B MP, BNP, LIPA, LIVER, CMADM #### [facility] [address] [address] Dennys Cheyenne BILI, CONJUGATED 1.9 mg/dL Critically high 0.0-0.3 The [facility] Comment on above: Result Comment: TEST REPEATED. CRITICAL VALUE VERIFIED Performed By: #### B MP, BNP, LIPA, LIVER, CMADM #### [facility] [address] [id number] Dennys Cheyenne Bilirubin Ql (U) 3.4 mg/dL Critically high 0.2-1.3 [facility] Comment on above: Performed By: #### B MP, BNP, LIPA, LIVER, CMADM #### [facility] [address] [address] Dennys Cheyenne Globulin (S) [Mass/Vol] 5.2 g/dL Normal [facility] Comment on above: Performed By: #### B MP, BNP, LIPA, LIVER, CMADM #### [facility] [address] [address] Dennys Cheyenne Protein [Mass/Vol] 7.4 g/dL Normal 6.1-8.2 [facility] Comment on above: Performed By: #### B MP, BNP, LIPA, LIVER, CMADM #### [facility] [address] [place] [address] Dennys Cheyenne OCC BLD IMMUNO SCREENon 02-12 OCCULT BLOOD Positive Normal NEGATIVE The [facility] Comment on above: Performed By: #### O BSCRN #### [facility] [address] [place] [address] Dennys Cheyenne PROF CHEM 8 (BAS METB)on Anion gap [Moles/Vol] 10.7 mmol/L Normal [facility] Comment on above: Performed By: #### B MP, BNP, LIPA, LIVER, CMADM #### [facility] [address] [place] [address] Dennys Cheyenne Calcium [Mass/Vol] 7.8 mg/dL Critically low 8.4-10.2 [facility] Comment on above: Performed By: #### B MP, BNP, LIPA, LIVER, CMADM #### [facility] [address] [place] [address] Dennys Cheyenne Chloride [Moles/Vol] 104 mmol/L Normal 98-107 [facility] Comment on above: Performed By: #### B MP, BNP, LIPA, LIVER, CMADM #### [facility] [address] [address] Dennys Cheyenne CO2 [Moles/Vol] 24.5 mmol/L Normal 22.0-30.0 The [facility] Comment on above: Performed By: #### B MP, BNP, LIPA, LIVER, CMADM #### [facility] [address] [place] [address] Dennsy Cheyenne Creatinine [Mass/Vol] 1.00 mg/dL Normal 0.66-1.25 [facility] Comment on above: Performed By: #### B MP, BNP, LIPA, LIVER, CMADM #### [facility] [address] [address] Dennys Cheyenne EGFR-AF MALAYSIAN >60 Normal >=60 [facility] Comment on above: Performed By: #### B MP, BNP, LIPA, LIVER, CMADM #### [facility] [address] [address] Dennys Cheyenne EGFR-NON AF MALAYSIAN >60 Normal >=60 [facility] Comment on above: Performed By: #### B MP, BNP, LIPA, LIVER, CMADM #### [facility] [address] [place] [address] Dennys Cheyenne Glucose [Mass/Vol] 108 mg/dL Critically high 74-106 The [facility] Comment on above: Performed By: #### B MP, BNP, LIPA, LIVER, CMADM #### [facility] [address] [place] [address] Dennys Cheyenne Potassium [Moles/Vol] 3.2 mmol/L Critically low 3.4-5.0 The [facility] Comment on above: Performed By: #### B MP, BNP, LIPA, LIVER, CMADM #### [facility] [address] [place] [address] Dennys Cheyenne Sodium [Moles/Vol] 136 mmol/L Critically low 137-145 The [facility] Comment on above: Performed By: #### B MP, BNP, LIPA, LIVER, CMADM #### [facility] [address] [place] [address] Dennys Cheyenne Urea nitrogen [Mass/Vol] 10.0 mg/dL Normal 9.0-20.0 [facility] Comment on above: Performed By: #### B MP, BNP, LIPA, LIVER, CMADM #### [facility] [address] [place] [address] Dennys Cheyenne Urea nitrogen/Creatini ne [Mass ratio] 10.0 mg/mg Normal [facility] Comment on above: Performed By: #### B MP, BNP, LIPA, LIVER, CMADM #### [facility] [address] [address] Dennys Cheyenne PROTIMEon 03-11-2019 INR Coag (PPP) [Relative time] 1.85 {INR} Normal [facility] Comment on above: Performed By: #### P TT, PT, DDIM #### [facility] [address] [address] Dennys Cheyenne PT Coag (PPP) [Time] 18.8 s Critically high 9.0-11.6 [facility] Comment on above: Performed By: #### P TT, PT, DDIM #### [facility] [address] [place] [address] Dennys Cheyenne PT Coag (PPP) [Time] PLEASE NOTE: NORMAL RANGE CHANGE 02-28-2014 DUE TO REAGENT LOT CHANGE Normal [facility] Comment on above: Performed By: #### P TT, PT, DDIM #### [facility] [address] [place] [address] Dennys Cheyenne PT Coag (PPP) [Time] SEE BELOW Normal [facility] Comment on above: Result Comment: ADDI RED INR: 2.0 - 3.0 CONDITIONS NOT LISTED BELOW 2.5 - 3.5 FOR PROSTHETIC HEART VALVE REPLACEMENT 2.5 - 3.5 RECURRENT THROMBOSIS Performed By: #### P TT, PT, DDIM #### [facility] [address] [place] [address] Dennys Cheyenne PTTon 03-11-2019 aPTT Coag (Bld) [Time] 39.4 s Critically high 22.3-36.2 [facility] Comment on above: Performed By: #### P TT, PT, DDIM #### [facility] [address] [place] [address] Dennys Cheyenne aPTT Coag (Bld) [Time] PLEASE NOTE: NORMAL RANGE CHANGE 05-07-2015 DUE TO REAGENT LOT CHANGE Normal [facility] Comment on above: Performed By: #### P TT, PT, DDIM #### [facility] [address] [place] [id number] Dennys Quinn TYPE AND SCREENon 03-11-2019 TYPE AND SCREEN Negative Normal [facility] Comment on above: Performed By: #### O BSCRN #### [facility] [address] [place], [place] [address] Dennys Quinn Vital Signs Date Time Vital Sign Value Performing Clinician Faci lity 06-04-2019 11:26-0500 BMI (Body Mass Index) 33.15 kg/m2 Don Gholam [facility] [address] [facility] Work Phone: 06-04-2019 11:26-0500 Body Temperature 98.6 [degF] Don Gholam [facility] [address] [facility] Work Phone: 06-04-2019 11:26-0500 Body weight 98.88 kg Don Gholam [facility] [address] [facility] Work Phone: 06-04-2019 11:26-0500 BP Diastolic 66 mm[Hg] Don Gholam [facility] [facility] Work Phone: 06-04-2019 11:26-0500 BP Systolic 106 mm[Hg] Don Gholam [facility] [address] Work Phone: 06-04-2019 11:26-0500 BSA (Body Surface Area) 2.12 m2 Don Gholam [facility] [address] [facility] Work Phone: 06-04-2019 11:26-0500 Height 172.72 cm Don Gholam [facility] [address] [facility] Work Phone: 06-04-2019 11:26-0500 Pulse (Heart Rate) 87 /min Don Gholam [facility] [address] [facility] Work Phone: Encounters Encounter Date Encounter Type Care Provider Facility Start: 10-24-2023 End: 10-24-2023 ambulatory Ana Martini [facility] Work Phone: Start: 10-24-2023 End: 10-24-2023 Departed Referred MACIEJ Shaysonya Martini Work Phone: [facility] Start: 06-04-2019 Patient encounter procedure Don Gholam [facility] [address] [facility] Work Phone: Start: 04-10-2019 Patient encounter procedure Don Gholam [facility] [facility] Work Phone: Start: 03-28-2019 Patient encounter procedure Don Gholam [facility] [address] [facility] Work Phone: Start: 03-11-2019 End: 03-12-2019 Patient encounter procedure SHAREE MARKER Facility: Procedures Date Procedure Procedure Detail Performing Clinician Start: 04-04-2019 Follow-up visit Start: 03-11-2019 End: 03-11-2019 Microscopic examination of blood, culture SHAREE MARKER Comment on above: Performed By: #### O BSCRN #### [facility] [address] [place] [address] Dennys Quinn Abdominal paracentesis Pierr e [facility] Don Alfredoolam Payers Date Payer Category Payer Self-pay 1975 Unknown [id number] 1961 Medicaid [id number] Social History Date Type Detail Facility Assertion Unknown if ever smoked [facility] [address] [facility] Work Phone: Start: 1975 Sex Assigned At Male F [facility] Functional Status Date Assessment Result Facility NEGATED: Highlighted row Functional performance Functional status health issues are not documented Disease [facility] [address] [facility] Work Phone: Mental Status Date Assessment Result Facility NEGATED: Highlighted row Cognitive function [Interpretation] Cognitive status health issues are not documented Disease [facility] [address] [facility] Work Phone: Evaluation note Note Date & Type Note Facility Evaluation note No assessment information availa [facility] Work Phone: Summary Purpose Family History No Family History Records Found Mother Name Dates Details Family history of Alive and well Status:Active Father Name Dates Details Family history of Status:Active Advance Directives No Advanced Directives Records FoundNo Advanced Directives Records FoundNo Advanced Directives Records Found Chief Complaint and Reason for Visit Chief Complaint UNKN Additional Source Comments (unrecognized sect ion and content) No Status Records FoundNo Status Records FoundNo Status Records Found INFORMATION SOURCE (unrecogn ized section and content) DATE CREATED AUTHOR 06/04/2019 [facility] DATE CREATED AUTHOR AUTHOR'S ORGANIZ ATION 01/21/2020 [facility] DATE CREATED AUTHOR AUTHOR'S ORGANIZ ATION 10/29/2023 [facility] Care Teams (unrecognized sec tion and content) Team Status: Inactive Member Role Status Dates Ana Martini PA-C Attending Provider Active Start: October 24, 2023 End: October 24, 2023 Goals (unrecognized section and content) Goals may be documented in a n alternate section FOR RECORDS PERTAINING TO PATIENTS WHO ARE OR HAVE BEEN ENROLLED IN A CHEMICAL DEPENDENCY/SUBSTANCEABUSE PROGRAM, SOME INFORMATION MAY BE OMITTED. This clinical summary was aggregated from multiple sources. Caution should be exercised in using it in the provision of clinical care. This summary normalizes information from multiple sources, and as a consequence, information in this document may materially change the coding, format and clinical context of patient data. In addition, data may be omitted in some cases. CLINICAL DECISIONS SHOULD BE BASED ON THE PRIMARY CLINICAL RECORDS. [facility]. provides no warranty or guarantee of the accuracy or completeness of information in this document.
[2023-11-02 10:35] LABS: Ammonia 38 umol/L (11-32)
[2023-11-02 10:46] LABS: Estimated Average Glucose 88 mg/dL; Glycohemoglobin A1C 4.7 % (4.5-6.2)
[2023-11-02 11:22] LABS: Cholesterol 117 mg/dL (<=200); Free T3 2.27 pg/mL (2.18-3.98); HDL Cholesterol 67 mg/dL (40-60); Thyroid Stimulating Hormone 2.233 uIU/mL (0.358-3.740); Triglycerides 41 mg/dL (<=150); VLDL CHOLESTEROL 8.2 mg/dL
[2023-11-02 11:24] LABS: Prostate Specific Antigen Scrn 0.74 ng/mL (<=4.00)
[2023-11-02 11:32] LABS: Chol HDL Ratio 1.7
== END 2023-11-02 09:38 | disposition home or self-care (01) ==
LOC: LAB 09:44
PROVIDERS: PCP Nurse Practitioner Family; Visit Provider Nurse Practitioner Family
DX: F10.10 Alcohol abuse, uncomplicated (principal)
CPT/HCPCS: 36415; 80061; 82140; 83036; 83525; 84436; 84443; 84481; G0103

== ENCOUNTER 2023-11-02 09:53 | Outpatient (OUT) | payer SELFPAY ==
--- OUTSIDE RECORDS SUMMARY | 2023-11-02 10:00 | XMS_ITS | CCD ---
Demographics Address [address] [place] [address] Preferred Language Chinese Marital Status Restorationism Affiliation Unknown Race Unknown Ethnic Group or Author Organization [facility] Care Team Providers Care Toe Former Stitchdowns Name Role Phone Don Dallas Unavailable Unavailable None, No PCP Unavailable Unavailable Unknown, Referring Provider Unavailable Unav ailable MARKER, SHAREE Admitting Unavailable MARKER, SHAREE Attending Unavailable MISC, DOCTOR Primary Care Unavailable MARC LEONE V Consulting Unavailable MARKER, SHAREE Consulting Unavailable MACIEJ Martini Attending Provider Mihir Leary Attending Unavailable Mihir Leary Admitting Unavailable Ana Martini Attending Unavailable Ana Martini Admitting Unavailable Allergies Allergy Classification Reported Allergen(s) Allergy Type Date of Onset Reaction(s) Facility (1 source) NSAIDs drug allergy [facility] [address] [facility] Work Phone: Medications Completed/Discontinued Medications Medication [...] 10-24-2023 Polyspecific AHG Negative Normal Negative [facility] Comment on above: Result Comment: PERF ORMED BY: [address] [place] [address] PATHOLOGIST [employer] DEPARTMENT SUPERVISOR KIM RITCHIE M.D. Aaron 10-24-2023 L Specimen: [id number] Received: 10/26/23 Status: SEBAS Caraballo Num: [id number] Spec Type: Impression Subm Dr: Mihir Leary MD Tissues: PATHPER Procedures: PATHREVIEW Age/ Patient Sex Location Account Attending Physician Glenn Antoine 48/M LABELL [id number] Mihir Leary MD SPEC NUM: [id number] RECD: 10/26/23 STATUS: SEBAS CARABALLO NUM: [id number] BRAYAN: 10/24/[address]: Mihir Leary MD ENTERED: 10/26/23-[address] [facility] [address]: Rojelio,Lab Ana M Vini [facility] SPEC TYPE: Impression DEPT: AGUILA Cota ENTERED BY: [id number] RECV BY: [id number] ORDERED: PATHREVIEW ORDERED: PATHREVIEW Pathologist Review Severe microcytic anemia is noted. Correlation with iron studies is suggested. Thrombocytopenia Is Noted. No Significant Increase In Schistocytes Or Spherocytes Is Identified. Differential Diagnosis Includes Peripheral Etiology (e.g. ITP, Drug-induced) Vs. Bone Marrow Disorder. Clinical Correlation Is Required. 90028 Specimen: [id number] Received: 10/26/23-1326 Status: SEBAS Caraballo Num: [id number] Spec Type: Impression Subm Dr: Mihir Leary MD Tissues: PATHPER Procedures: PATHREVIEW Patient: Glenn Antoine [id number] (Continued) Signed (signature on file) Patt Leonard MD 10/26/23 1834 Normal [facility] Established Visit (Gastroent erology)on 06-04-2019 Established Visit (Gastroenterology ) Diagnoses/Problems Assessed Ascites due to alcoholic cirrhosis (571.2) (K70.31) Orders Alcoholic hepatitis, Ascites due to alcoholic cirrhosis Hepatology Follow-Up Outpatient Follow-up in 6 months Status: Hold For - Scheduling,Exact Date Requested for: Approx [id number] Ordered;For: Alcoholic hepatitis, Ascites due to alcoholic [...] 2 TABLET Daily Vitals Vital Signs Recorded: [id number] 09:26AM Wqfpojygyst33.6 F Heart Rate87 Rcvykvpt249 Jmjlvwvlm12 Height5 ft 8 in Aonmud456 lb BMI Exbnilkynu45.15 BSA Calculated2.12 Physical Exam Constitutional General appearance: In no acute distress . Eyes Anicteric Sclerae . Pulmonary Auscultation of lungs: Clear. Cardiovascular Auscultation of heart: RRR without murmur. Examination of extremities for edema: Normal. Abdomen Soft, non-tender. Bowel sounds normal. No hepatomegaly or splenomegaly. Results/Data Comprehensive Metabolic Psrpf16Zau1913 01:02PMSatyBaudilio campos Test NameResultFlagReference Glucose, Serum92 mg/dL74 - 99 Sodium, Ktkvk552 mmol/LL136 - 145 POTASSIUM4.2 mmol/L3.5 - 5.3 Chloride, Serum98 mmol/L98 - 107 Bicarbonate, Serum26 mmol/L21 - 32 Anion Gap, Serum11 mmol/L10 - 20 Blood Urea Nitrogen, Serum13 mg/dL6 - 23 CREATININE0.74 mg/dLSee Below Reference Range: 0.50 - 1.30 Calcium, Serum8.6 mg/dL8.6 - 10.6 Albumin, Serum2.7 g/dLL3.4 - 5.0 ALKALINE PEICXGGPJTO111 U/L33 - 120 Protein, Total Serum7.1 g/dL6.4 [...] 2007;53:766-72 AST50 U/LH9 - 39 IO Hgb [id number] 10:50Demetra Gambino Test NameResultFlagReference IO Hgb A1c5.24.4-6.4% Comprehensive Metabolic Afesx85Zdz4499 02:50PMSaBaudilio fischer Test NameResultFlagReference Glucose, Ffhpx719 mg/dLH74 - 99 Sodium, Bnqbf516 mmol/LL136 - 145 POTASSIUM4.9 mmol/L3.5 - 5.3 Chloride, Serum95 mmol/LL98 - 107 Bicarbonate, Serum26 mmol/L21 - 32 Anion Gap, Serum12 mmol/L10 - 20 Blood Urea Nitrogen, Serum17 mg/dL6 - 23 CREATININE0.93 mg/dLSee Below Reference Range: 0.50 - 1.30 Calcium, Serum8.6 mg/dL8.6 - 10.6 Albumin, Serum3.0 g/dLL3.4 - 5.0 ALKALINE JINGLGCWAOO367 U/L33 - 120 Protein, Total Serum7.3 g/dL6.4 - 8.2 Bilirubin, Serum Total6.5 mg/dLH0.0 - 1.2 ALT (SGPT), Serum67 U/LH10 - 52 Patients treated with Sulfasalazine may generate falsely decreased results for ALT. GFR Non >60 mL/min/1.73m2>60 GFR >60 mL/min/1.73m2>60 CALCULATIONS OF ESTIMATED GFR ARE PERFORMED USING THE MDRD STUDY EQUATION FOR THE IDMS-TRACEABLE CREATININE METHODS. CLIN CHEM 2007;53:766-72 AST81 U/LH9 - 39 PT/[id number] 08:31Lorena Patel Test NameResultFlagReference PROTHROMBIN TIME29.8 secH9.7 - 12.7 PT, INR2.6H0.9 - 1.1 Comprehensive Metabolic Bxpey64Kfc9988 08:31Lorena Patel Test NameResultFlagReference Glucose, Serum89 mg/dL74 - 99 Sodium, Zvxci178 mmol/LL136 - 145 POTASSIUM4.0 mmol/L3.5 - 5.3 Chloride, Uepfe988 mmol/L98 - 107 Bicarbonate, Serum23 mmol/L21 - 32 Anion Gap, Serum10 mmol/L10 - 20 Blood Urea Nitrogen, Serum13 mg/dL6 - 23 CREATININE0.71 mg/dLSee Below Reference Range: 0.50 - 1.30 Calcium, Serum8.4 mg/dLL8.6 - 10.6 Albumin, Serum2.7 g/dLL3.4 - 5.0 ALKALINE RGEPAQKBLYE64 U/L33 - 120 Protein, Total Serum7.4 g/dL6.4 [...] U/LH9 - 39 Complete Blood Count + Woltnqmmscek51Zbz3303 08:31Lorena Patel Test NameResultFlagReference White Blood Cell Count12.7 x10E9/LH4.4 - 11.3 Red Blood Cell Count4.02 x10E12/LLSee Below Reference Range: 4.50 - 5.90 Nucleated Erythrocyte Count0.0 /100 WBC0.0-0.0 Xjhakmwqji11.3 g/dLLSee Below Reference Range: 13.5 - 17.5 HCT32.1 %LSee Below Reference Range: 41.0 - 52.0 MCV80 fL80 - 100 MCHC32.1 g/dLSee Below Reference Range: 32.0 - 36.0 Platelet Idwtk173 x10E9/L150 - 450 RDW-CV25.2 %HSee Below Reference [...] has been confirmed by manual smear. RBC Nyuylcvgzy49Sey8014 08:31AMLorena Menchaca Test NameResultFlagReference Red Blood Cell [...] threshold 9.7 - 12.7 [facility] rology-Westla ke [employer] Work Phone: Hepatic Function Panelon Albumin BCP dye [Mass/Vol] 2.9 g/dL below low threshold 3.4 - 5.0 [facility] rology-[facility]la ke [address] Work Phone: ALP [Catalytic activity/Vol] 81 U/L 33 - 120 [facility]logy-[facility]la [facility] [address] Work Phone: ALT With P-5'-P [Catalytic activity/Vol] 9 U/L below low threshold 10 - 52 [facility] rology-Westla ke [employer] Work Phone: Comment on above: Patients [...] threshold 0.0 - 0.3 [facility] melanieogy-Westla jessica [address] Work Phone: Protein [Mass/Vol] 6.7 g/dL 6.4 - 8.2 [facility] rology-Westla jessica [address] Work Phone: Renal Function Panelon 06-04 Anion gap [Moles/Vol] 12 mmol/L 10 - 20 [facility] rology-Westla jessica [address] Work Phone: Calcium [Mass/Vol] 9.1 mg/dL 8.6 - 10.6 [facility] rology-Kyriela jessica [address] Work Phone: Chloride [Moles/Vol] 104 mmol/L 98 - 107 [facility] rology-Kyriela jessica [address] Work Phone: CO2 [Moles/Vol] 22 mmol/L 21 - 32 [facility]astro ente melanieogy-Ese lopez [address] Work Phone: Creatinine [Mass/Vol] 0.89 mg/dL See Below [facility] rology-Kyriela jessica [address] Work Phone: Comment on above: Reference Range: 0.5 0 - 1.30 Glucose [Mass/Vol] 110 mg/dL above high threshold 74 - 99 [facility] rology-Westla jessica [address] [place] [address] Work Phone: Phosphate [Mass/Vol] 4.7 mg/dL 2.5 - 4.9 [facility] rology-Kyriela jessica [address] [place] [address] Work Phone: Comment on above: The performance dhruv acteristics of phosphorus testing in heparinized plasma have been validated by the individual laboratory site where testing is performed. Testing on heparinized plasma is not approved by the FDA; however, such approval is not necessary. Potassium [Moles/Vol] 4.4 mmol/L 3.5 - 5.3 [facility] rology-Westla jessica [address] [place], [place] [address] Work Phone: Sodium [Moles/Vol] 134 mmol/L below low threshold 136 - 145 MG-Staci lopez [address] Work Phone: Urea nitrogen [Mass/Vol] 10 mg/dL 6 - 23 MG-Staci lopez [address] Work Phone: Renal Function Panel >60 >60 [facility]-Staci lopez [address] Work Phone: Comment on above: CALCULATIONS [...] AM Vitals Vital Signs Recorded: 10Apr2019 01:29PM Ensskpmbqfd40.5 F Heart Rate98 Btextinu625 Lrtwfykfv88 Height5 ft 8 in Omrlpr681 lb BMI Ibcblieyvp62.06 BSA Calculated2.14 Physical Exam Constitutional General appearance: [...] No hepatomegaly or splenomegaly. Results/Data Comprehensive Metabolic Qbmdl05Vjx1020 01:02PMSaBaudilio fischer Test NameResultFlagReference Glucose, Serum92 mg/dL74 - 99 Sodium, Lsjfl462 mmol/LL136 - 145 POTASSIUM4.2 mmol/L3.5 - 5.3 Chloride, Serum98 mmol/L98 - 107 Bicarbonate, Serum26 mmol/L21 - 32 Anion Gap, Serum11 mmol/L10 - 20 Blood Urea Nitrogen, Serum13 mg/dL6 - 23 CREATININE0.74 mg/dLSee Below Reference Range: 0.50 - 1.30 Calcium, Serum8.6 mg/dL8.6 - 10.6 Albumin, Serum2.7 g/dLL3.4 - 5.0 ALKALINE CNZHZGWQTYI793 U/L33 - 120 Protein, Total Serum7.1 g/dL6.4 [...] 2007;53:766-72 AST50 U/LH9 - 39 Comprehensive Metabolic Adehs52Ajd4678 02:50PMSaBaudilio fischer Test NameResultFlagReference Glucose, Cxthf286 mg/dLH74 - 99 Sodium, Tjulz142 mmol/LL136 - 145 POTASSIUM4.9 mmol/L3.5 - 5.3 Chloride, Serum95 mmol/LL98 - 107 Bicarbonate, Serum26 mmol/L21 - 32 Anion Gap, Serum12 mmol/L10 - 20 Blood Urea Nitrogen, Serum17 mg/dL6 - 23 CREATININE0.93 mg/dLSee Below Reference Range: 0.50 - 1.30 Calcium, Serum8.6 mg/dL8.6 - 10.6 Albumin, Serum3.0 g/dLL3.4 - 5.0 ALKALINE BQHRYVNOFUF273 U/L33 - 120 Protein, Total Serum7.3 g/dL6.4 - 8.2 Bilirubin, Serum Total6.5 mg/dLH0.0 - 1.2 ALT (SGPT), Serum67 U/LH10 - 52 Patients treated with Sulfasalazine may generate falsely decreased results for ALT. GFR Non >60 mL/min/1.73m2>60 GFR >60 mL/min/1.73m2>60 CALCULATIONS OF ESTIMATED GFR ARE PERFORMED USING THE MDRD STUDY EQUATION FOR THE IDMS-TRACEABLE CREATININE METHODS. CLIN CHEM 2007;53:766-72 AST81 U/LH9 - 39 PT/TQI80Dsk3958 08:31AMLorena Menchaca Test NameResultFlagReference PROTHROMBIN TIME29.8 secH9.7 - 12.7 PT, INR2.6H0.9 - 1.1 Complete Blood Count + Divhlrimntzu99Dbr6219 08:31Lorena Patel Test NameResultFlagReference White Blood Cell Count12.7 x10E9/LH4.4 - 11.3 Red Blood Cell Count4.02 x10E12/LLSee Below Reference Range: 4.50 - 5.90 Nucleated Erythrocyte Count0.0 /100 WBC0.0-0.0 Gybvtffnbw91.3 g/dLLSee Below Reference Range: 13.5 - 17.5 HCT32.1 %LSee Below Reference Range: 41.0 - 52.0 MCV80 fL80 - 100 MCHC32.1 g/dLSee Below Reference Range: 32.0 - 36.0 Platelet Gjytr370 x10E9/L150 - 450 RDW-CV25.2 %HSee Below Reference [...] has been confirmed by manual smear. RBC Zqzwolwqhm29Sij0280 08:31Lorena Patel Test NameResultFlagReference Red Blood Cell MorphologySee Below Red Blood Cell FragmentsFew Target CellsFew OvalocytesFew Imperial CellMany GIANT PLATELETSFew Diagnoses/Problems Ascites due to [...] Apr 10 2019 1:53PM EST (Author) Normal [facility] URINE PROFILEon 9 Bilirubin [Mass/Vol] SMALL Normal NEGATIVE [facility] Comment on above: Performed By: #### O BSCRN #### [facility] [address] [place] [address] Dennys Cheyenne BLOOD Negative Normal NEGATIVE [facility] Comment on above: Performed By: #### O BSCRN #### [facility] [address] [place], [place] [address] Dennys Cheyenne Clarity (U) CLEAR Normal [facility] Comment on above: Performed By: #### O BSCRN #### [facility] [address] [place] [address] Dennys Cheyenne Color (U) YELLOW Normal YELLOW [facility] Comment on above: Performed By: #### O BSCRN #### [facility] [address] [place] [address] Dennys Cheyenne ERUAHD A micrscopic examina tion will be performed if indicated. Normal [facility] Comment on above: Performed By: #### O BSCRN #### [facility] [address] [place] [address] Dennys Cheyenne Glucose [Mass/Vol] Negative Normal NEGATIVE [facility] Comment on above: Performed By: #### O BSCRN #### [facility] [address] [place] [address] Dennys Cheyenne Ketones Ql (U) Negative Normal NEGATIVE [facility] Comment on above: Performed By: #### O BSCRN #### [facility] [address] [place] [address] Dennys Cheyenne Nitrite Ql (U) Negative Normal NEGATIVE [facility] Comment on above: Performed By: #### O BSCRN #### [facility] [address] [place] [address] Dennys Cheyenne pH (Bld) 7.0 Normal 5-9 [facility] Comment on above: Performed By: #### O BSCRN #### [facility] [address] [place] [address] Dennys Cheyenne Protein (U) [Mass/Vol] Negative Normal [facility] Comment on above: Performed By: #### O BSCRN #### [facility] [address] [place] [address] Dennys Cheyenne SPEC GRAVITY <=1.005 Normal 1.005-<=1.02 5 [facility] Comment on above: Performed By: #### O BSCRN #### [facility] [address] [place] [address] Dennys Cheyenne UR MICRO IND NOT INDICATED Normal [facility] Comment on above: Performed By: #### O BSCRN #### [facility] [address] [place] [address] Dennys Cheyenne Urobilinogen Qn (U) 2.0 EU/dl Normal [facility] Comment on above: Performed By: #### O BSCRN #### [facility] [address] [place], [place] [address] Dennys Quinn WBC (Bld) [#/Vol] Negative Normal NEGATIVE [facility] Comment on above: Performed By: #### O BSCRN #### [facility] [address] [place], [place] [address] Dennys Quinn FRESH FROZ PLASMAon 03-12-20 19 ABO and Rh group Nom (Bld) Unit Blood Type O Neg Unit Number [id number] Status Information Transfused Product ID FFP Product Code [id number] Unit Blood Type A Pos Unit Number [id number] Status Information Transfused Product ID FFP Product Code [id number] Normal [facility] Comment on above: Performed By: #### O BSCRN #### [facility] [address] [place], [place] [address] Dennys Quinn PRBC LEUKOREDUCEDon 03-12-20 19 PRBC LEUKOREDUCED Cross Match Result Compatible Unit Blood Type O Neg Unit Number [id number] Status Information Released Specimen Exp Date Product ID Red Blood Cells Product Code [id number] Cross Match Result Compatible Unit Blood Type O Neg Unit Number [id number] Status Information Released Specimen Exp Date Product ID Red Blood Cells Product Code [id number] Cross Match Result Compatible Unit Blood Type O Pos Unit Number [id number] Status Information Transfused Product ID Red Blood Cells Product Code [id number] Cross Match Result Compatible Unit Blood Type O Pos Unit Number [id number] Status Information Transfused Product ID Red Blood Cells Product Code [id number] Normal [facility] Comment on above: Performed By: #### O BSCRN #### [facility] [address] [place], [place] [address] Dennys Quinn BNPon 03-11-2019 Natriuretic peptide B (Bld) [Mass/Vol] 196.0 pg/mL Normal <=450.0 [facility] Comment on above: Performed By: #### B MP, BNP, LIPA, LIVER, CMADM #### [facility] [address] [place], [place] [address] Dennys Quinn CARDIAC KVNG ADMITon 019 CK [Catalytic activity/Vol] 279 U/L Critically high 55-170 [facility] Comment on above: Result Comment: TEST REPEATED. CRITICAL VALUE VERIFIED Performed By: #### B MP, BNP, LIPA, LIVER, CMADM #### [facility] [address] [place] [address] Dennys Quinn CK.MB [Mass/Vol] 1.50 ng/mL Normal <=2.[address] [facility] Comment on above: Performed By: #### B MP, BNP, LIPA, LIVER, CMADM #### [facility] [address] [place] [address] Dennys Quinn INR Coag (Bld) [Relative time] SEE BELOW Normal [facility] Comment on above: Result Comment: <0.0 34 ng/ml NEGATIVE 0.034-0.119 INDETERMINATE 0.120 AMI CUT OFF Performed By: #### B MP, BNP, LIPA, LIVER, CMADM #### [facility] [address] [place] [address] Dennys Quinn ELYSIA 177.0 ng/mL Critically high <=121.[address] [facility] Comment on above: Performed By: #### B MP, BNP, LIPA, LIVER, CMADM #### [facility] [address] [place] [address] Dennyscatherine Quinn TROP 0.080 ng/mL Critically high <=0.[address] [facility] Comment on above: Result Comment: TEST REPEATED. CRITICAL VALUE VERIFIED Performed By: #### B MP, BNP, LIPA, LIVER, CMADM #### [facility] [address] [place] [address] Dennys Cheyenne CBC W MANUAL DIFFon 03-11-20 19 Anisocytosis Ql (Bld) SLIGHT Normal [facility] Comment on above: Performed By: #### C JUAN M #### [facility] [address] [place] [address] Dennyscatherine Quinn ATYPICAL LYMPH # Normal [facility] Comment on above: Performed By: #### C JUAN M #### [facility] [address] [place] [address] Dennyscatherine Quinn ATYPICAL LYMPH % Normal [facility] Comment on above: Performed By: #### Gabriele MCGOWAN #### [facility] [address] [id number] Dennys Cheyenne BAND # 0.1 103/ul Normal 0.0-0.3 [facility] Comment on above: Performed By: #### Gabriele MCGOWAN #### [facility] [address] [place], [place] [address] Dennys Cheyenne BAND % 1 % Normal 0-5 [facility] Comment on above: Performed By: #### Gabriele MCGOWAN #### [facility] [address] [place] [address] Dennys Cheyenne BASOM # 0.17 103/ul Critically high 0.00-0.[address] [facility] Comment on above: Performed By: #### Gabriele MCGOWAN #### [facility] [address] [place] [address] Dennys Cheyenne BASOM % 2.0 % Normal 0.2-2.0 [facility] Comment on above: Performed By: #### Gabriele MCGOWAN #### [facility] [address] [place], [place] [address] Dennys Cheyenne BLAST # Normal [facility] Comment on above: Performed By: #### Gabriele MCGOWAN #### [facility] [address] [place], [place] [address] Dennys Cheyenne BLAST % Normal [facility] Comment on above: Performed By: #### Gabriele MCGOWAN #### [facility] [address] [place], [place] [address] Dennys Cheyenne CORRECTED WBC Normal 4.0-11.0 [facility] Comment on above: Performed By: #### Gabriele MCGOWAN #### [facility] [address] [place], [place] [address] Dennys Cheyenne Eosinophils (Bld) [#/Vol] 0.17 103/ul Normal 0.00-0.70 [facility] Comment on above: Performed By: #### Gabriele MCGOWAN #### [facility] [address] [place], [place] [address] Dennys Cheyenne Eosinophils/100 WBC (Bld) 2.0 % Normal 0.9-7.0 [facility] Comment on above: Performed By: #### C JUAN M #### [facility] [address] [address] Dennys Quinn Erythrocyte distribution width (RBC) [Ratio] 18.2 % Critically high 11.0-15.0 [facility] Comment on above: Performed By: #### C JUAN M #### [facility] [address] [place] [address] Dennys Quinn Hematocrit (Bld) [Volume fraction] 13.1 % Critically low 42.0-54.0 [facility] Comment on above: Result Comment: Test Repeated. Critical Value Verified Performed By: #### C JUAN M #### [facility] [address] [place] [address] Dennys Quinn Hemoglobin (Bld) [Mass/Vol] 4.0 g/dl Critically low 14.0-18.0 [facility] Comment on above: Result Comment: Test Repeated. Critical Value Verified Performed By: #### C JUAN M #### [facility] [address] [place] [address] Dennys Quinn HYPERSEG NEUT SLIGHT Normal [facility] Comment on above: Performed By: #### Gabriele MCGOWAN #### [facility] [address] [place] [address] Dennys Quinn HYPOCHROMASIA 3+ Normal [facility] Comment on above: Performed By: #### C JUAN M #### [facility] [address] [place] [address] Dennys Cheyenne LYMPHM # 1.76 103/ul Normal 1.20-3.80 [facility] Comment on above: Performed By: #### C JUAN M #### [facility] [address] [place] [address] Dennys Cheyenne LYMPHM% 21.0 % Normal 20.5-60.0 [facility] Comment on above: Performed By: #### C JUAN M #### [facility] [address] [place] [address] Dennys Quinn MCH (RBC) [Entitic mass] 21.3 pg Critically low 25.9-34.0 [facility] Comment on above: Performed By: #### C JUAN M #### [facility] [address] [place] [address] Dennys Quinn MCHC (RBC) [Mass/Vol] 30.5 g/dl Normal 29.9-35.2 [facility] Comment on above: Performed By: #### C JUAN M #### [facility] [address] [place] [address] Dennyscatherine Quinn MCV (RBC) [Entitic vol] 69.7 fL Critically low 80.0-94.0 [facility] Comment on above: Performed By: #### C JUAN M #### [facility] [address] [place] [address] Dennys Cheyenne METAMYELOCYTE # Normal [facility] Comment on above: Performed By: #### Gabriele MCGOWAN #### [facility] [address] [place] [address] Dennys Cheyenne METAMYELOCYTE % Normal [facility] Comment on above: Performed By: #### Gabriele MCGOWAN #### [facility] [address] [place] [address] Dennys Cheyenne MICROCYTOSIS 2+ Normal [facility] Comment on above: Performed By: #### Gabriele MCGOWAN #### [facility] [address] [place] [address] Dennys Cheyenne MONOM# 0.25 103/ul Critically low 0.30-0.80 [facility] Comment on above: Performed By: #### Gabriele MCGOWAN #### [facility] [address] [place] [address] Dennys Cheyenne MONOM% 3.0 % Normal 1.7-12.0 [facility] Comment on above: Performed By: #### Gabriele MCGOWAN #### [facility] [address] [place] [address] Dennys Cheyenne MYELOCYTE # Normal [facility] Comment on above: Performed By: #### Gabriele MCGOWAN #### [facility] [address] [place] [address] Dennys Cheyenne MYELOCYTE % Normal [facility] Comment on above: Performed By: #### C BCMAN #### [facility] [address] [place], [place] [address] Dennys Cheyenne NRBC Normal [facility] Comment on above: Performed By: #### Gabriele MCGOWAN #### [facility] [address] [place] [address] Dennys Cheyenne OVALOCYTES SLIGHT Normal [facility] Comment on above: Performed By: #### Gabriele MCGOWAN #### [facility] [address] [place], [place] [address] Dennyscatherine Quinn Platelet mean volume (Bld) [Entitic vol] 0.0 fL Critically low 9.5-13.5 [facility] Comment on above: Performed By: #### Gabriele MCGOWAN #### [facility] [address] [place] [address] Dennys Cheyenne Platelets (Bld) [#/Vol] 24 103/ul Critically low 150-450 [facility] Comment on above: Result Comment: Test Repeated. Critical Value Verified Performed By: #### Gabriele MCGOWAN #### [facility] [address] [place] [address] Dennyscatherine Quinn RBC (Bld) [#/Vol] 1.88 106/ul Critically low 4.70-6.10 [facility] Comment on above: Performed By: #### Gabriele MCGOWAN #### [facility] [facility] [address] [place] [address] Dennyscatherine Quinn SEG # [id number] 103/ul Normal 1.40-6.50 [facility] Comment on above: Performed By: #### Gabriele MCGOWAN #### [facility] [address] [place] [address] Dennyscatherine Quinn Segmented neutrophils/100 WBC (Bld) 71.0 % Normal 43.0-75.0 [facility] Comment on above: Performed By: #### Gabriele MCGOWAN #### [facility] [address] [place] [address] Dennys Cheyenne STOMATOCYTES SLIGHT Normal [facility] Comment on above: Performed By: #### Gabriele MCGOWAN #### [facility] [address] [place] [address] Dennys Cheyenne TARGET CELLS 2+ Normal [facility] Comment on above: Performed By: #### C BCMAN #### [facility] [address], [place] [address] Dennys Quinn WBC (Bld) [#/Vol] 8.4 103/ul Normal 4.0-11.0 [facility] Comment on above: Performed By: #### C BCMAN #### [facility] [address], [place] [address] Dennys Quinn CTA CHEST CT ABD/PELVIS Won 03-11-[address] ABD/PELVIS W Patient: GLENN ANTOINE Exam Date: 03/11/2019 : 1975 Gender:M Ordering : DR SHAREE BARBER D.O. Admission #: [id number] Family : Order #: [id number] CLICK HERE TO VIEW EXAM RADIOLOGY REPORT [...] M.D. on 03/11/2019 at 21:41 Normal [facility] D-DIMERon 03-11-2019 D-DIMER COMMENTS SEE BELOW Normal [facility] Comment on above: Result Comment: Incr eases [...] hospitalization. Performed By: #### O BSCRN #### [facility] [address] [place] [address] Cheyenne Fibrin D-dimer FEU IA (Bld) [Mass/Vol] 4.38 ug/mL Critically high 0.19-0.50 [facility] Comment on above: Result Comment: Test Repeated. Critical Value Verified Performed By: #### O BSCRN #### [facility] [address] [place], [place] [address]en LACTATE/LACTIC ACIDon 2018 Lactate [Moles/Vol] 2.5 mmol/L Critically high 0.7-2.1 [facility] Comment on above: Performed By: #### L ACT #### [facility] [address] [place] [address] Dennys Cheyenne LIPASEon 03-11-2019 Lipase [Catalytic activity/Vol] 341.0 U/L Critically high 23.0-300.0 [facility] Comment on above: Performed By: #### B MP, BNP, LIPA, LIVER, CMADM #### [facility] [address] [place], [place] [address]ken Cheyenne LIVER PROFILEon 03-11-2019 Albumin [Mass/Vol] 2.2 g/dL Critically low 3.5-5.0 [facility] Comment on above: Performed By: #### B MP, BNP, LIPA, LIVER, CMADM #### [facility] [address] [address] Dennys Cheyenne Albumin/Globulin [Mass ratio] 0.4 {ratio} Normal [facility] Comment on above: Performed By: #### B MP, BNP, LIPA, LIVER, CMADM #### [facility] [address] [address] Dennys Cheyenne ALP [Catalytic activity/Vol] 80 U/L Normal 38-126 [facility] Comment on above: Performed By: #### B MP, BNP, LIPA, LIVER, CMADM #### [facility] [address] [address] Dennys Cheyenne ALT [Catalytic activity/Vol] 19 U/L Critically low 21-72 [facility] Comment on above: Performed By: #### B MP, BNP, LIPA, LIVER, CMADM #### [facility] [address] [address] Dennys Cheyenne AST [Catalytic activity/Vol] 82 U/L Critically high 17-59 [facility] Comment on above: Performed By: #### B MP, BNP, LIPA, LIVER, CMADM #### [facility] [address] [address] Dennys Cheyenne BILI, CONJUGATED 1.9 mg/dL Critically high 0.0-0.3 [facility] Comment on above: Result Comment: TEST REPEATED. CRITICAL VALUE VERIFIED Performed By: #### B MP, BNP, LIPA, LIVER, CMADM #### [facility] [address] [id number] Dennys Cheyenne Bilirubin Ql (U) 3.4 mg/dL Critically high 0.2-1.3 [facility] Comment on above: Performed By: #### B MP, BNP, LIPA, LIVER, CMADM #### [facility] [address] [address] Dennys Cheyenne Globulin (S) [Mass/Vol] 5.2 g/dL Normal [facility] Comment on above: Performed By: #### B MP, BNP, LIPA, LIVER, CMADM #### [facility] [address] [address] Dennys Cheyenne Protein [Mass/Vol] 7.4 g/dL Normal 6.1-8.2 [facility] Comment on above: Performed By: #### B MP, BNP, LIPA, LIVER, CMADM #### [facility] [address] [place] [address] Dennys Cheyenne OCC BLD IMMUNO SCREENon 02-12 OCCULT BLOOD Positive Normal NEGATIVE [facility] Comment on above: Performed By: #### O BSCRN #### [facility] [address] [place] [address] Dennys Cheyenne PROF CHEM 8 (BAS METB)on Anion gap [Moles/Vol] 10.7 mmol/L Normal [facility] Comment on above: Performed By: #### B MP, BNP, LIPA, LIVER, CMADM #### [facility] [address] [place] [address] Dennys Cheyenne Calcium [Mass/Vol] 7.8 mg/dL Critically low 8.4-10.2 [facility] Comment on above: Performed By: #### B MP, BNP, LIPA, LIVER, CMADM #### [facility] [address] [place] [address] Dennys Cheyenne Chloride [Moles/Vol] 104 mmol/L Normal 98-107 [facility] Comment on above: Performed By: #### B MP, BNP, LIPA, LIVER, CMADM #### [facility] [address] [address] Dennys Cheyenne CO2 [Moles/Vol] 24.5 mmol/L Normal 22.0-30.[address] [facility] Comment on above: Performed By: #### B MP, BNP, LIPA, LIVER, CMADM #### [facility] [address] [place] [address] Dennys Cheyenne Creatinine [Mass/Vol] 1.00 mg/dL Normal 0.66-1.25 [facility] Comment on above: Performed By: #### B MP, BNP, LIPA, LIVER, CMADM #### [facility] [address] [address] Dennys Cheyenne EGFR-AF INDIAN >60 Normal >=[address] [facility] Comment on above: Performed By: #### B MP, BNP, LIPA, LIVER, CMADM #### [facility] [address] [address] Dennys Cheyenne EGFR-NON AF INDIAN >60 Normal >=60 [facility] Comment on above: Performed By: #### B MP, BNP, LIPA, LIVER, CMADM #### [facility] [address] [place] [address] Dennys Cheyenne Glucose [Mass/Vol] 108 mg/dL Critically high 74-106 [facility] Comment on above: Performed By: #### B MP, BNP, LIPA, LIVER, CMADM #### [facility] [address] [place] [address] Dennys Cheyenne Potassium [Moles/Vol] 3.2 mmol/L Critically low 3.4-5.0 [facility] Comment on above: Performed By: #### B MP, BNP, LIPA, LIVER, CMADM #### [facility] [address] [place] [address] Dennys Cheyenne Sodium [Moles/Vol] 136 mmol/L Critically low 137-145 [facility] Comment on above: Performed By: #### B MP, BNP, LIPA, LIVER, CMADM #### [facility] [address] [place] [address] Dennys Cheyenne Urea nitrogen [Mass/Vol] 10.0 mg/dL Normal 9.0-20.0 [facility] Comment on above: Performed By: #### B MP, BNP, LIPA, LIVER, CMADM #### [facility] [address] [place] [address] Dennys Cheyenne Urea nitrogen/Creatini ne [Mass ratio] 10.0 mg/mg Normal [facility] Comment on above: Performed By: #### B MP, BNP, LIPA, LIVER, CMADM #### [facility] [address] [address] Dennys Cheyenne PROTIMEon 03-11-2019 INR Coag (PPP) [Relative time] 1.85 {INR} Normal [facility] Comment on above: Performed By: #### P TT, PT, DDIM #### [facility] [address] [address] Dennys Cheyenne PT Coag (PPP) [Time] 18.8 s Critically high 9.0-11.6 [facility] Comment on above: Performed By: #### P TT, PT, DDIM #### [facility] [address] [place] [address] Dennys Cheyenne PT Coag (PPP) [Time] PLEASE NOTE: NORMAL RANGE CHANGE 02-28-2014 DUE TO REAGENT LOT CHANGE Normal [facility] Comment on above: Performed By: #### P TT, PT, DDIM #### [facility] [address] [place] [address] Dennys Cheyenne PT Coag (PPP) [Time] SEE BELOW Normal [facility] Comment on above: Result Comment: ADDI RED INR: 2.0 - 3.0 CONDITIONS NOT LISTED BELOW 2.5 - 3.5 FOR PROSTHETIC HEART VALVE REPLACEMENT 2.5 - 3.5 RECURRENT THROMBOSIS Performed By: #### P TT, PT, DDIM #### [facility] [address] [place] [address] Dennys Cheyenne PTTon 03-11-2019 aPTT Coag (Bld) [Time] 39.4 s Critically high 22.3-36.2 [facility] Comment on above: Performed By: #### P TT, PT, DDIM #### [facility] [address] [place] [address] Dennys Cheyenne aPTT Coag (Bld) [Time] PLEASE NOTE: NORMAL RANGE CHANGE 05-07-2015 DUE TO REAGENT LOT CHANGE Normal [facility] Comment on above: Performed By: #### P TT, PT, DDIM #### [facility] [address] [place] [address] Dennys Quinn TYPE AND SCREENon 03-11-2019 TYPE AND SCREEN Negative Normal [facility] Comment on above: Performed By: #### O BSCRN #### [facility] [address], [place] [address] Dennys Quinn Vital Signs Date Time Vital Sign Value Performing Clinician Faci lity 06-04-2019 11:26-0500 BMI (Body Mass Index) 33.15 kg/m2 Don Gholam [facility] Work Phone: 06-04-2019 11:26-0500 Body Temperature 98.6 [degF] Don Gholam [facility] Work Phone: 06-04-2019 11:26-0500 Body weight 98.88 kg Don Gholam [facility] Work Phone: 06-04-2019 11:26-0500 BP Diastolic 66 mm[Hg] Don Gholam [facility] Work Phone: 06-04-2019 11:26-0500 BP Systolic 106 mm[Hg] Don Gholam [facility] Work Phone: 06-04-2019 11:26-0500 BSA (Body Surface Area) 2.12 m2 Don Gholam [facility] Work Phone: 06-04-2019 11:26-0500 Height 172.72 cm Don Gholam [facility] Work Phone: 06-04-2019 11:26-0500 Pulse (Heart Rate) 87 /min Don Gholam [facility] Work Phone: Encounters Encounter Date Encounter Type Care Provider Facility Start: 10-24-2023 End: 10-24-2023 ambulatory Ana Martini [facility] Work Phone: Start: 10-24-2023 End: 10-24-2023 Departed Referred MACIEJ Shaysonya Martini Work Phone: [facility] Start: 06-04-2019 Patient encounter procedure Don Gholam [facility] Work Phone: Start: 04-10-2019 Patient encounter procedure Don Gholam [facility] Work Phone: Start: 03-28-2019 Patient encounter procedure Don Gholam [facility] Work Phone: Start: 03-11-2019 End: 03-12-2019 Patient encounter procedure SHAREE MARKER Facility: Procedures Date Procedure Procedure Detail Performing Clinician Start: 04-04-2019 Follow-up visit Start: 03-11-2019 End: 03-11-2019 Microscopic examination of blood, culture SHAREE MARKER Comment on above: Performed By: #### O BSCRN #### [facility] [address] [place] [address] Dennys Quinn Abdominal paracentesis Pierr e [facility] Don Alfredoolam Payers Date Payer Category Payer Self-pay 1975 Unknown [id number] 1961 Medicaid [id number] Social History Date Type Detail Facility Assertion Unknown if ever smoked [facility] Work Phone: Start: 1975 Sex Assigned At Male F [facility] Functional Status Date Assessment Result Facility NEGATED: Highlighted row Functional performance Functional status health issues are not documented Disease [facility] Work Phone: Mental Status Date Assessment Result Facility NEGATED: Highlighted row Cognitive function [Interpretation] Cognitive status health issues are not documented Disease [facility] Work Phone: Evaluation note Note Date & Type Note Facility Evaluation note No assessment information availa [facility] Work Phone: Summary Purpose Family History No [...] CREATED AUTHOR AUTHOR'S ORGANIZ ATION 10/29/2023 [facility] Care Teams (unrecognized sec tion [...] BE BASED ON THE PRIMARY CLINICAL RECORDS. [employer] [facility] provides no warranty or guarantee of the accuracy or completeness of information in this document.
[2023-11-02 10:35] LABS: Hematocrit 28.2 % (42.0-54.0); Mean Corpuscular HGB Conc 31.9 g/dL (29.9-35.2); Mean Corpuscular Hemoglobin 22.5 pg (25.9-34.0); Mean Corpuscular Volume 70.5 fL (80.0-94.0); Platelet Count 76 10^3/uL (150-450); Red Cell Distribution Width 27.9 % (11.0-15.0); White Blood Count 3.3 10^3/uL (4.0-11.0)
[2023-11-02 11:16] LABS: Alanine Aminotransferase 21 U/L (16-63); Albumin Globulin Ratio 0.5; Albumin Level 2.4 g/dL (3.4-5.0); Alkaline Phosphatase 103 U/L (46-116); Anion Gap 10.6; Aspartate Amino Transferase 38 U/L (15-37); Calcium 8.3 mg/dL (8.5-10.1); Carbon Dioxide 23.2 mmol/L (21.0-32.0); Chloride 106 mmol/L (98-107); Estimated GFR (African America >60 (>=60); Estimated GFR (Non-African Ame >60 (>=60); Globulin 4.4 g/dL; Glucose 91 mg/dL (74-106); Lactate Dehydrogenase 223 U/L (85-227); Potassium 3.8 mmol/L (3.5-5.1); Sodium 136 mmol/L (136-145); Total Protein 6.8 g/dL (6.4-8.2)
[2023-11-02 11:59] LABS: Bilirubin Direct 2.6 mg/dL (0.0-0.2)
[2023-11-02 12:08] LABS: Band Neutrophils Absolute 0.1 10^3/uL (0.0-0.3); Eosinophils Absolute Manual 0.13 10^3/uL (0.00-0.70); Lymphocytes Absolute Manual 0.72 10^3/uL (1.20-3.80); Monocytes Absolute Manual 0.26 10^3/uL (0.30-0.80); Segmented Neut Absolute Manual 2.07 10^3/uL (1.4-6.5)
[2023-11-02 12:09] LABS: Anisocytosis 2+; Hypochromasia 1+; Microcytosis 1+; Target Cells 1+
== END 2023-11-02 09:54 | disposition home or self-care (01) ==
LOC: LAB 09:54
PROVIDERS: PCP Nurse Practitioner Family; Visit Provider Internal Medicine Hematology & Oncology
DX: D72.819 Decreased white blood cell count, unspecified (principal); D64.9 Anemia, unspecified; D68.9 Coagulation defect, unspecified; D50.9 Iron deficiency anemia, unspecified; K90.9 Intestinal malabsorption, unspecified; E80.7 Disorder of bilirubin metabolism, unspecified
CPT/HCPCS: 36415; 80053; 82248; 83615; 85007; 85027; 85610; 85611; 85730; 85732

== ENCOUNTER 2024-02-16 10:39 | Emergency (ER) | payer SELFPAY ==
[2024-02-16 10:43] VITALS: BP 121/69; PULSE 85; TEMP 37.1; O2SAT 100; BMI 30.7
--- NOTE | 2024-02-16 11:12 | PC.NURSE ---
PT BROUGHT IN BY GIRLFRIEND FOR 6 MONTHS OF BILAT LOWER LEG SWELLING AND WOUNDS. WOUNDS ARE DRAINING SEROSANGUINOUS FLUID. SAW ESTELLA CARRILLO TODAY AND WAS TOLD TO GET EVALUATED IN ER. PT GIRLFRIEND STATES PT IS A DAILY DRINKER -- DRINKS ABOUT 5 TALL BOY BEERS PER DAY. PT STATES HIS LAST DRINK WAS 2 DAYS AGO. DOES HAVE A SUBTLE TREMOR.
--- OUTSIDE RECORDS SUMMARY | 2024-02-16 11:12 | XMS_ITS | CCD ---
Demographics Address [address] [place] [address] Preferred Language Nigerian Marital Status Religion Affiliation Unknown Race Unknown Ethnic Group or Author Organization [facility] Care Team Providers Care Mushroom Picker Name Role Phone Don Dallas Unavailable Unavailable None, No PCP Unavailable Unavailable Unknown, Referring Provider Unavailable Unav ailable MARKER, SHAREE Admitting Unavailable MARKER, SHAREE Attending Unavailable MISC, DOCTOR Primary Care Unavailable MARC LEONE V Consulting Unavailable MARKER, SHAREE Consulting Unavailable MACIEJ Martini Attending Provider [phone] Mihir Leary Attending Unavailable Mihir Leary Admitting Unavailable Ana Martini Attending Unavailable Ana Martini Admitting Unavailable Allergies Allergy Classification Reported Allergen(s) Allergy Type Date of Onset Reaction(s) Facility (1 source) NSAIDs drug allergy [facility] [address] [facility] Work Phone: Medications Completed/Discontinued Medications Medication [...] 10-24-2023 Polyspecific AHG Negative Normal Negative [facility] Comment on above: Result Comment: PERF ORMED BY: [address] [place] [address] PATHOLOGIST DETECTIVE [employer]ARCOT[employer] VICE KIM Walker 10-24-2023 L Specimen: [id number] Received: 10/26/23 Status: SEBAS Caraballo Num: [id number] Spec Type: Impression Subm Dr: Mihir Leary MD Tissues: PATHPER Procedures: PATHREVIEW Age/ Patient Sex Location Account Attending Physician Glenn Antoine 48/M LABELL [id number] Mihir Leary MD SPEC NUM: [id number] RECD: 10/26/23 STATUS: SOUVidhya CARABALLO NUM: [id number] BRAYAN: 10/24/[address]: Mihir Leary MD ENTERED: 10/26/23-[address] [facility] DR: Rojelio,Lab Ana M JADE Martini SPEC TYPE: Impression DEPT: AGUILA Cota ENTERED BY: [id number] RECV BY: [id number] ORDERED: PATHREVIEW ORDERED: PATHREVIEW Pathologist Review Severe microcytic anemia is noted. Correlation with iron studies is suggested. Thrombocytopenia Is Noted. No Significant Increase In Schistocytes Or Spherocytes Is Identified. Differential Diagnosis Includes Peripheral Etiology (e.g. ITP, Drug-induced) Vs. Bone Marrow Disorder. Clinical Correlation Is Required. [id number] Specimen: [id number] Received: 10/26/23 Status: SEBAS Caraballo Num: [id number] Spec Type: Impression Subm Dr: Mihir Leary MD Tissues: PATHPER Procedures: PATHREVIEW Patient: Glenn Antoine [id number] (Continued) Signed (signature on file) Patt Leonard MD 10/26/23 1834 Normal [facility] Established Visit (Gastroent erology)on 06-04-2019 Established Visit (Gastroenterology ) Diagnoses/Problems Assessed Ascites due to alcoholic cirrhosis (571.2) (K70.31) Orders Alcoholic hepatitis, Ascites due to alcoholic cirrhosis Hepatology Follow-Up Outpatient Follow-up in 6 months Status: Hold For - Scheduling,Exact Date Requested for: Approx 04Jun2019 Ordered;For: Alcoholic hepatitis, Ascites due to alcoholic [...] 2 TABLET Daily Vitals Vital Signs Recorded: 36Fob6778 09:26AM Cderkvuhoge18.6 F Heart Rate87 Ocqbzabu949 Nbezhcxrl99 Height5 ft 8 in Bsaush461 lb BMI Rqgnjspxnk52.15 BSA Calculated2.12 Physical Exam Constitutional General appearance: In no acute distress . Eyes Anicteric Sclerae . Pulmonary Auscultation of lungs: Clear. Cardiovascular Auscultation of heart: RRR without murmur. Examination of extremities for edema: Normal. Abdomen Soft, non-tender. Bowel sounds normal. No hepatomegaly or splenomegaly. Results/Data Comprehensive Metabolic Oibsp84Xlh9487 01:02PMSatyBaudilio campos Test NameResultFlagReference Glucose, Serum92 mg/dL74 - 99 Sodium, Rtpol399 mmol/LL136 - 145 POTASSIUM4.2 mmol/L3.5 - 5.3 Chloride, Serum98 mmol/L98 - 107 Bicarbonate, Serum26 mmol/L21 - 32 Anion Gap, Serum11 mmol/L10 - 20 Blood Urea Nitrogen, Serum13 mg/dL6 - 23 CREATININE0.74 mg/dLSee Below Reference Range: 0.50 - 1.30 Calcium, Serum8.6 mg/dL8.6 - 10.6 Albumin, Serum2.7 g/dLL3.4 - 5.0 ALKALINE JJADAJYNEOW492 U/L33 - 120 Protein, Total Serum7.1 g/dL6.4 [...] 2007;53:766-72 AST50 U/LH9 - 39 IO Hgb R8G52Iqb0479 10:50Demetra Gambino Test NameResultFlagReference IO Hgb A1c5.24.4-6.4% Comprehensive Metabolic Oyqpm38Rkr4840 02:50PMSaBaudilio fischer Test NameResultFlagReference Glucose, Xubgr891 mg/dLH74 - 99 Sodium, Aqars303 mmol/LL136 - 145 POTASSIUM4.9 mmol/L3.5 - 5.3 Chloride, Serum95 mmol/LL98 - 107 Bicarbonate, Serum26 mmol/L21 - 32 Anion Gap, Serum12 mmol/L10 - 20 Blood Urea Nitrogen, Serum17 mg/dL6 - 23 CREATININE0.93 mg/dLSee Below Reference Range: 0.50 - 1.30 Calcium, Serum8.6 mg/dL8.6 - 10.6 Albumin, Serum3.0 g/dLL3.4 - 5.0 ALKALINE FQNTULAYNAF281 U/L33 - 120 Protein, Total Serum7.3 g/dL6.4 - 8.2 Bilirubin, Serum Total6.5 mg/dLH0.0 - 1.2 ALT (SGPT), Serum67 U/LH10 - 52 Patients treated with Sulfasalazine may generate falsely decreased results for ALT. GFR Non >60 mL/min/1.73m2>60 GFR >60 mL/min/1.73m2>60 CALCULATIONS OF ESTIMATED GFR ARE PERFORMED USING THE MDRD STUDY EQUATION FOR THE IDMS-TRACEABLE CREATININE METHODS. CLIN CHEM 2007;53:766-72 AST81 U/LH9 - 39 PT/[id number] 08:31Lorena Patel Test NameResultFlagReference PROTHROMBIN TIME29.8 secH9.7 - 12.7 PT, INR2.6H0.9 - 1.1 Comprehensive Metabolic Pgjdt92Tti6028 08:31Lorena Patel Test NameResultFlagReference Glucose, Serum89 mg/dL74 - 99 Sodium, Fopcz182 mmol/LL136 - 145 POTASSIUM4.0 mmol/L3.5 - 5.3 Chloride, Hebpa821 mmol/L98 - 107 Bicarbonate, Serum23 mmol/L21 - 32 Anion Gap, Serum10 mmol/L10 - 20 Blood Urea Nitrogen, Serum13 mg/dL6 - 23 CREATININE0.71 mg/dLSee Below Reference Range: 0.50 - 1.30 Calcium, Serum8.4 mg/dLL8.6 - 10.6 Albumin, Serum2.7 g/dLL3.4 - 5.0 ALKALINE RCZSTMOBTRP76 U/L33 - 120 Protein, Total Serum7.4 g/dL6.4 [...] U/LH9 - 39 Complete Blood Count + Vovtrivvyhyt71Huk7904 08:31Lorena Patel Test NameResultFlagReference White Blood Cell Count12.7 x10E9/LH4.4 - 11.3 Red Blood Cell Count4.02 x10E12/LLSee Below Reference Range: 4.50 - 5.90 Nucleated Erythrocyte Count0.0 /100 WBC0.0-0.0 Qycinakiie89.3 g/dLLSee Below Reference Range: 13.5 - 17.5 HCT32.1 %LSee Below Reference Range: 41.0 - 52.0 MCV80 fL80 - 100 MCHC32.1 g/dLSee Below Reference Range: 32.0 - 36.0 Platelet Cchuk550 x10E9/L150 - 450 RDW-CV25.2 %HSee Below Reference [...] has been confirmed by manual smear. RBC Fesfmlifee83Mvq5023 08:31AMLorena Menchaca Test NameResultFlagReference Red Blood Cell MorphologySee Below Red Blood Cell FragmentsFew Target CellsFew OvalocytesFew Delfina CellMany GIANT PLATELETSFew Signatures Electronically signed by : Don Dallas MD; Jun 04 2019 10:30AM EST (Author) Normal [facility] 06-04-2019 INR Coag (PPP) [Relative time] 2.0 {INR} above high threshold 0.9 - 1.1 [facility] [address] [facility] Work Phone: PT Coag (PPP) [Time] 22.0 {sec} above high threshold 9.7 - 12.7 [facility]logy-[facility] ke [employer] [facility] Work Phone: Hepatic Function Panelon Albumin BCP dye [Mass/Vol] 2.9 g/dL below low threshold 3.4 - 5.0 [facility]logy-[facility] [employer] Work Phone: ALP [Catalytic activity/Vol] 81 U/L 33 - 120 [facility] rology-[facility] [employer] Work Phone: ALT With P-5'-P [Catalytic activity/Vol] 9 U/L below low threshold 10 - 52 [facility]log[facility] [employer] [facility] Work Phone: Comment on above: Patients treated wit h Sulfasalazine may generate falsely decreased results for ALT. AST With P-5'-P [Catalytic activity/Vol] 24 U/L 9 - 39 [facility]logy[facility] ke [address] [facility] Work Phone: Bilirubin [Mass/Vol] 2.8 mg/dL above high threshold 0.0 - 1.2 [facility]logy[facility] ke [address] Work Phone: Bilirubin.direct [Mass/Vol] 1.1 mg/dL above high threshold 0.0 - 0.3 [facility] melanieogy-[facility] jessica [address] Work Phone: Protein [Mass/Vol] 6.7 g/dL 6.4 - 8.2 [facility] jessica [address] Work Phone: Renal Function Panelon 06-04 Anion gap [Moles/Vol] 12 mmol/L 10 - 20 [facility] jessica [address] Work Phone: Calcium [Mass/Vol] 9.1 mg/dL 8.6 - 10.6 [facility] jessica [address] Work Phone: Chloride [Moles/Vol] 104 mmol/L 98 - 107 [facility] rology-Kyriela jessica [address] Work Phone: CO2 [Moles/Vol] 22 mmol/L 21 - 32 MG-Gastro ente melanieogy-Ese lopez [address] Work Phone: Creatinine [Mass/Vol] 0.89 mg/dL See Below [facility] rology-Kyriela jessica [address] Work Phone: Comment on above: Reference Range: 0.5 0 - 1.30 Glucose [Mass/Vol] 110 mg/dL above high threshold 74 - 99 [facility] jessica [address] Work Phone: Phosphate [Mass/Vol] 4.7 mg/dL 2.5 - 4.9 [facility] jessica [address] Work Phone: Comment on above: The performance dhruv acteristics of phosphorus testing in heparinized plasma have been validated by the individual laboratory site where testing is performed. Testing on heparinized plasma is not approved by the FDA; however, such approval is not necessary. Potassium [Moles/Vol] 4.4 mmol/L 3.5 - 5.3 [facility]logy[facility] ke [address] Work Phone: Sodium [Moles/Vol] 134 mmol/L below low threshold 136 - 145 MG-Staci Plasencia [facility] Work Phone: Urea nitrogen [Mass/Vol] 10 mg/dL 6 - 23 MG-Staci Plasencia [facility] Work Phone: Renal Function Panel >60 >60 MG-Staci Plasencia [facility] Work Phone: Comment on above: CALCULATIONS [...] AM Vitals Vital Signs Recorded: 10Apr2019 01:29PM Mobrbplceff79.5 F Heart Rate98 Jdhnaejz096 Kvnppblyx05 Height5 ft 8 in Piosfc451 lb BMI Mmeolngoab29.06 BSA Calculated2.14 Physical Exam Constitutional General appearance: [...] No hepatomegaly or splenomegaly. Results/Data Comprehensive Metabolic Wbfdd07Oja3017 01:02PMSaBaudilio fischer Test NameResultFlagReference Glucose, Serum92 mg/dL74 - 99 Sodium, Ervfr041 mmol/LL136 - 145 POTASSIUM4.2 mmol/L3.5 - 5.3 Chloride, Serum98 mmol/L98 - 107 Bicarbonate, Serum26 mmol/L21 - 32 Anion Gap, Serum11 mmol/L10 - 20 Blood Urea Nitrogen, Serum13 mg/dL6 - 23 CREATININE0.74 mg/dLSee Below Reference Range: 0.50 - 1.30 Calcium, Serum8.6 mg/dL8.6 - 10.6 Albumin, Serum2.7 g/dLL3.4 - 5.0 ALKALINE PHFQRDPICQH557 U/L33 - 120 Protein, Total Serum7.1 g/dL6.4 [...] 2007;53:766-72 AST50 U/LH9 - 39 Comprehensive Metabolic Cakza77Jjj2964 02:50PMSaBaudilio fischer Test NameResultFlagReference Glucose, Rurie733 mg/dLH74 - 99 Sodium, Uknzk789 mmol/LL136 - 145 POTASSIUM4.9 mmol/L3.5 - 5.3 Chloride, Serum95 mmol/LL98 - 107 Bicarbonate, Serum26 mmol/L21 - 32 Anion Gap, Serum12 mmol/L10 - 20 Blood Urea Nitrogen, Serum17 mg/dL6 - 23 CREATININE0.93 mg/dLSee Below Reference Range: 0.50 - 1.30 Calcium, Serum8.6 mg/dL8.6 - 10.6 Albumin, Serum3.0 g/dLL3.4 - 5.0 ALKALINE AQHTLDIYKOB033 U/L33 - 120 Protein, Total Serum7.3 g/dL6.4 - 8.2 Bilirubin, Serum Total6.5 mg/dLH0.0 - 1.2 ALT (SGPT), Serum67 U/LH10 - 52 Patients treated with Sulfasalazine may generate falsely decreased results for ALT. GFR Non >60 mL/min/1.73m2>60 GFR >60 mL/min/1.73m2>60 CALCULATIONS OF ESTIMATED GFR ARE PERFORMED USING THE MDRD STUDY EQUATION FOR THE IDMS-TRACEABLE CREATININE METHODS. CLIN CHEM 2007;53:766-72 AST81 U/LH9 - 39 PT/[id number] 08:31AMLorena Menchaca Test NameResultFlagReference PROTHROMBIN TIME29.8 secH9.7 - 12.7 PT, INR2.6H0.9 - 1.1 Complete Blood Count + Xbnoexuoirjo59Qmp7318 08:31Lorena Patel Test NameResultFlagReference White Blood Cell Count12.7 x10E9/LH4.4 - 11.3 Red Blood Cell Count4.02 x10E12/LLSee Below Reference Range: 4.50 - 5.90 Nucleated Erythrocyte Count0.0 /100 WBC0.0-0.0 Squawkmboe22.3 g/dLLSee Below Reference Range: 13.5 - 17.5 HCT32.1 %LSee Below Reference Range: 41.0 - 52.0 MCV80 fL80 - 100 MCHC32.1 g/dLSee Below Reference Range: 32.0 - 36.0 Platelet Pkelk274 x10E9/L150 - 450 RDW-CV25.2 %HSee Below Reference [...] has been confirmed by manual smear. RBC Udwntejbta05Bvy2675 08:31Lorena Patel Test NameResultFlagReference Red Blood Cell MorphologySee Below Red Blood Cell FragmentsFew Target CellsFew OvalocytesFew Delfina CellMany GIANT PLATELETSFew Diagnoses/Problems Ascites due to [...] Apr 10 2019 1:53PM EST (Author) Normal [facility] URINE PROFILEon 9 Bilirubin [Mass/Vol] SMALL Normal NEGATIVE [facility] Comment on above: Performed By: #### O BSCRN #### [facility] [address] [place] [address] Dennys Cheyenne BLOOD Negative Normal NEGATIVE [facility] Comment on above: Performed By: #### O BSCRN #### [facility] [address] [id number] Dennys Cheyenne Clarity (U) CLEAR Normal [facility] Comment on above: Performed By: #### O BSCRN #### [facility] [address] [place], [place] [address] Dennys Cheyenne Color (U) YELLOW Normal YELLOW [facility] Comment on above: Performed By: #### O BSCRN #### [facility] [address] [address] Dennys Cheyenne ERUAHD A micrscopic examina tion will be performed if indicated. Normal [facility] Comment on above: Performed By: #### O BSCRN #### [facility] [address] [place] [address] Dennys Cheyenne Glucose [Mass/Vol] Negative Normal NEGATIVE [facility] Comment on above: Performed By: #### O BSCRN #### [facility] [address] [place] [address] Dennys Cheyenne Ketones Ql (U) Negative Normal NEGATIVE [facility] Comment on above: Performed By: #### O BSCRN #### [facility] [address] [place] [address] Dennys Cheyenne Nitrite Ql (U) Negative Normal NEGATIVE [facility] Comment on above: Performed By: #### O BSCRN #### [facility] [address] [place] [address] Dennys Cheyenne pH (Bld) 7.0 Normal 5-9 [facility] Comment on above: Performed By: #### O BSCRN #### [facility] [address] [place] [address] Dennys Cheyenne Protein (U) [Mass/Vol] Negative Normal [facility] Comment on above: Performed By: #### O BSCRN #### [facility] [address] [place] [address] Dennys Cheyenne SPEC GRAVITY <=1.005 Normal 1.005-<=1.02 5 [facility] Comment on above: Performed By: #### O BSCRN #### [facility] [address] [place] [address] Dennys Cheyenne UR MICRO IND NOT INDICATED Normal [facility] Comment on above: Performed By: #### O BSCRN #### [facility] [address] [place] [address] Dennys Cheyenne Urobilinogen Qn (U) 2.0 EU/dl Normal [facility] Comment on above: Performed By: #### O BSCRN #### [facility] [address] [place], [place] [id number] Dennys Quinn WBC (Bld) [#/Vol] Negative Normal NEGATIVE [facility] Comment on above: Performed By: #### O BSCRN #### [facility] [address] [place], [place] [address] Dennys Quinn FRESH FROZ PLASMAon 03-12-20 19 ABO and Rh group Nom (Bld) Unit Blood Type O Neg Unit Number [id number] Status Information Transfused Product ID FFP Product Code [id number] Unit Blood Type A Pos Unit Number [id number] Status Information Transfused Product ID FFP Product Code [id number] Normal [facility] Comment on above: Performed By: #### O BSCRN #### [facility] [address] [place], [place] [id number] Dennys Quinn PRBC LEUKOREDUCEDon 03-12-20 19 PRBC LEUKOREDUCED Cross Match Result Compatible Unit Blood Type O Neg Unit Number [id number] Status Information Released Specimen Exp Date Product ID Red Blood Cells Product Code [id number] Cross Match Result Compatible Unit Blood Type O Neg Unit Number [id number] Status Information Released Specimen Exp Date Product ID Red Blood Cells Product Code [id number] Cross Match Result Compatible Unit Blood Type O Pos Unit Number [id number] Status Information Transfused Product ID Red Blood Cells Product Code [id number] Cross Match Result Compatible Unit Blood Type O Pos Unit Number [id number] Status Information Transfused Product ID Red Blood Cells Product Code [id number] Normal [facility] Comment on above: Performed By: #### O BSCRN #### [facility] [address] [place], [place] [id number] Dennys Quinn BNPon 03-11-2019 Natriuretic peptide B (Bld) [Mass/Vol] 196.0 pg/mL Normal <=450.0 [facility] Comment on above: Performed By: #### B MP, BNP, LIPA, LIVER, CMADM #### [facility] [address] [place], [place] [address] Dennys Quinn CARDIAC KVNG ADMITon 019 CK [Catalytic activity/Vol] 279 U/L Critically high 55-170 [facility] Comment on above: Result Comment: TEST REPEATED. CRITICAL VALUE VERIFIED Performed By: #### B MP, BNP, LIPA, LIVER, CMADM #### [facility] [address] [place] [address] Dennys Quinn CK.MB [Mass/Vol] 1.50 ng/mL Normal <=2.37 [facility] Comment on above: Performed By: #### B MP, BNP, LIPA, LIVER, CMADM #### [facility] [address] [place] [address] Dennys Quinn INR Coag (Bld) [Relative time] SEE BELOW Normal [facility] Comment on above: Result Comment: <0.0 34 ng/ml NEGATIVE 0.034-0.119 INDETERMINATE 0.120 AMI CUT OFF Performed By: #### B MP, BNP, LIPA, LIVER, CMADM #### [facility] [address] [place] [address] Dennys Quinn ELYSIA 177.0 ng/mL Critically high <=121.0 [facility] Comment on above: Performed By: #### B MP, BNP, LIPA, LIVER, CMADM #### [facility] [address] [place] [address] Dennyscatherine Quinn TROP 0.080 ng/mL Critically high <=0.034 [facility] Comment on above: Result Comment: TEST REPEATED. CRITICAL VALUE VERIFIED Performed By: #### B MP, BNP, LIPA, LIVER, CMADM #### [facility] [address] [place] [address] Dennys Cheyenne CBC W MANUAL DIFFon 03-11-20 19 Anisocytosis Ql (Bld) SLIGHT Normal [facility] Comment on above: Performed By: #### C JUAN M #### [facility] [address] [place] [address] Dennyscatherine Quinn ATYPICAL LYMPH # Normal [facility] Comment on above: Performed By: #### C JUAN M #### [facility] [address] [place] [address] Dennyscatherine Quinn ATYPICAL LYMPH % Normal [facility] Comment on above: Performed By: #### Gabriele MCGOWAN #### [facility] [address] [place], [place] [address] Dennys Cheyenne BAND # 0.1 103/ul Normal 0.0-0.3 [facility] Comment on above: Performed By: #### Gabriele MCGOWAN #### [facility] [address] [place], [place] [address] Dennys Cheyenne BAND % 1 % Normal 0-5 [facility] Comment on above: Performed By: #### Gabriele MCGOWAN #### [facility] [address] [place] [address] Dennys Cheyenne BASOM # 0.17 103/ul Critically high 0.00-0.10 [facility] Comment on above: Performed By: #### Gabriele MCGOWAN #### [facility] [address] [place] [address] Dennys Cheyenne BASOM % 2.0 % Normal 0.2-2.0 [facility] Comment on above: Performed By: #### Gabriele MCGOWAN #### [facility] [address] [place] [address] Dennys Cheyenne BLAST # Normal [facility] Comment on above: Performed By: #### Gabriele MCGOWAN #### [facility] [address] [place], [place] [address] Dennys Cheyenne BLAST % Normal [facility] Comment on above: Performed By: #### Gabriele MCGOWAN #### [facility] [address] [place], [place] [address] Dennys Cheyenne CORRECTED WBC Normal 4.0-11.[address] [facility] Comment on above: Performed By: #### Gabriele MCGOWAN #### [facility] [address] [place], [place] [address] Dennys Cheyenne Eosinophils (Bld) [#/Vol] 0.17 103/ul Normal 0.00-0.70 [facility] Comment on above: Performed By: #### Gabriele MCGOWAN #### [facility] [address] [place], [place] [address] Dennys Cheyenne Eosinophils/100 WBC (Bld) 2.0 % Normal 0.9-7.0 [facility] Comment on above: Performed By: #### C JUAN M #### [facility] [address] [address] Dennys Quinn Erythrocyte distribution width (RBC) [Ratio] 18.2 % Critically high 11.0-15.0 [facility] Comment on above: Performed By: #### C JUAN M #### [facility] [address] [place] [address] Dennys Quinn Hematocrit (Bld) [Volume fraction] 13.1 % Critically low 42.0-54.0 [facility] Comment on above: Result Comment: Test Repeated. Critical Value Verified Performed By: #### C JUAN M #### [facility] [address] [place] [address] Dennys Quinn Hemoglobin (Bld) [Mass/Vol] 4.0 g/dl Critically low 14.0-18.0 [facility] Comment on above: Result Comment: Test Repeated. Critical Value Verified Performed By: #### C JUAN M #### [facility] [address] [place] [address] Dennys Quinn HYPERSEG NEUT SLIGHT Normal The [facility] Comment on above: Performed By: #### Gabriele MCGOWAN #### [facility] [address] [place] [address] Dennys Quinn HYPOCHROMASIA 3+ Normal The [facility] Comment on above: Performed By: #### C JUAN M #### [facility] [address] [place] [address] Dennys Cheyenne LYMPHM # 1.76 103/ul Normal 1.20-3.80 [facility] Comment on above: Performed By: #### C JUAN M #### [facility] [address] [place] [address] Dennys Cheyenne LYMPHM% 21.0 % Normal 20.5-60.0 [facility] Comment on above: Performed By: #### C JUAN M #### [facility] [address] [place] [address] Dennys Quinn MCH (RBC) [Entitic mass] 21.3 pg Critically low 25.9-34.0 [facility] Comment on above: Performed By: #### Gabriele MCGOWAN #### [facility] [address] [place] [address] Dennys Quinn MCHC (RBC) [Mass/Vol] 30.5 g/dl Normal 29.9-35.2 [facility] Comment on above: Performed By: #### Gabriele MCGOWAN #### [facility] [address] [place] [address] Dennyscatherine Quinn MCV (RBC) [Entitic vol] 69.7 fL Critically low 80.0-94.0 [facility] Comment on above: Performed By: #### Gabriele MCGOWAN #### [facility] [address] [place] [address] Dennys Cheyenne METAMYELOCYTE # Normal [facility] Health Comment on above: Performed By: #### Gabriele MCGOWAN #### [facility] [address] [place] [address] Dennys Cheyenne METAMYELOCYTE % Normal [facility] Comment on above: Performed By: #### Gabriele MCGOWAN #### [facility] [address] [place] [address] Dennys Cheyenne MICROCYTOSIS 2+ Normal [facility] Comment on above: Performed By: #### Gabriele MCGOWAN #### [facility] [address] [place] [address] Dennys Cheyenne MONOM# 0.25 103/ul Critically low 0.30-0.80 [facility] Comment on above: Performed By: #### Gabriele MCGOWAN #### [facility] [address] [place] [address] Dennys Cheyenne MONOM% 3.0 % Normal 1.7-12.0 [facility] Comment on above: Performed By: #### Gabriele MCGOWAN #### [facility] [address] [place] [address] Dennys Cheyenne MYELOCYTE # Normal [facility] Comment on above: Performed By: #### Gabriele MCGOWAN #### [facility] [address] [place] [address] Dennys Cheyenne MYELOCYTE % Normal [facility] Comment on above: Performed By: #### C GRACIELAMAN #### [facility] [address] [place], [place] [id number] Dennys Cheyenne NRBC Normal [facility] Comment on above: Performed By: #### Gabriele MCGOWAN #### [facility] [address] [place] [address] Dennys Cheyenne OVALOCYTES SLIGHT Normal [facility] Comment on above: Performed By: #### Gabriele MCGOWAN #### [facility] [address] [place], [place] [id number] Dennys Cheyenne Platelet mean volume (Bld) [Entitic vol] 0.0 fL Critically low 9.5-13.5 [facility] Comment on above: Performed By: #### Gabriele MCGOWAN #### [facility] [address] [place] [address] Dennys Cheyenne Platelets (Bld) [#/Vol] 24 103/ul Critically low 150-450 [facility] Comment on above: Result Comment: Test Repeated. Critical Value Verified Performed By: #### Gabriele MCGOWAN #### [facility] [address] [place] [address] Dennys Cheyenne RBC (Bld) [#/Vol] 1.88 106/ul Critically low 4.70-6.10 [facility] Comment on above: Performed By: #### Gabriele MCGOWAN #### [facility] [address] [place] [address] Dennyscatherine Connen SEG # 5.96 103/ul Normal 1.40-6.50 [facility] Comment on above: Performed By: #### Gabriele MCGOWAN #### [facility] [address] [place] [address] Dennyscatherine Quinn Segmented neutrophils/100 WBC (Bld) 71.0 % Normal 43.0-75.0 [facility] Comment on above: Performed By: #### Gabriele MCGOWAN #### [facility] [address] [place] [address] Dennys Cheyenne STOMATOCYTES SLIGHT Normal [facility] Comment on above: Performed By: #### Gabriele MCGOWAN #### [facility] [address] [place] [address] Dennys Quinn TARGET CELLS 2+ Normal [facility] Comment on above: Performed By: #### C BCMAN #### [facility] [address] [place], [place] [address] Dennys Quinn WBC (Bld) [#/Vol] 8.4 103/ul Normal 4.0-11.0 [facility] Comment on above: Performed By: #### C BCMAN #### [facility] [address] [place], [place] [address] Dennys Quinn CTA CHEST CT ABD/PELVIS Won 03-11-[address] ABD/PELVIS W Patient: GLENN ANTOINE Exam Date: 03/11/2019 : 1975 Gender:M Ordering : DR SHAREE BARBER D.O. Admission #: [id number] Family : Order #: [id number] CLICK HERE TO VIEW EXAM RADIOLOGY REPORT [...] M.D. on 03/11/2019 at 21:41 Normal [facility] D-DIMERon 03-11-2019 D-DIMER COMMENTS SEE BELOW Normal [facility] Comment on above: Result Comment: Incr [...] hospitalization. Performed By: #### O BSCRN #### [facility] [address] [place] [address] Fibrin D-dimer FEU IA (Bld) [Mass/Vol] 4.38 ug/mL Critically high 0.19-0.50 [facility] Comment on above: Result Comment: Test Repeated. Critical Value Verified Performed By: #### O BSCRN #### [facility] [address] [place], [place] [address] LACTATE/LACTIC ACIDon 2018 Lactate [Moles/Vol] 2.5 mmol/L Critically high 0.7-2.1 [facility] Comment on above: Performed By: #### L ACT #### [facility] [address] [place] [address] Cheyenne LIPASEon 03-11-2019 Lipase [Catalytic activity/Vol] 341.0 U/L Critically high 23.0-300.0 [facility] Comment on above: Performed By: #### B MP, BNP, LIPA, LIVER, CMADM #### [facility] [address] [place] [address] Dennys Connen LIVER PROFILEon 03-11-2019 Albumin [Mass/Vol] 2.2 g/dL Critically low 3.5-5.0 [facility] Comment on above: Performed By: #### B MP, BNP, LIPA, LIVER, CMADM #### [facility] [address] [place] [address] Dennys Cheyenne Albumin/Globulin [Mass ratio] 0.4 {ratio} Normal [facility] Comment on above: Performed By: #### B MP, BNP, LIPA, LIVER, CMADM #### [facility] [address] [place] [address] Dennys Cheyenne ALP [Catalytic activity/Vol] 80 U/L Normal 38-126 [facility] Comment on above: Performed By: #### B MP, BNP, LIPA, LIVER, CMADM #### [facility] [address] [place] [address] Dennsy Cheyenne ALT [Catalytic activity/Vol] 19 U/L Critically low 21-72 [facility] Comment on above: Performed By: #### B MP, BNP, LIPA, LIVER, CMADM #### [facility] [address] [place] [address] Dennys Cheyenne AST [Catalytic activity/Vol] 82 U/L Critically high 17-59 [facility] Comment on above: Performed By: #### B MP, BNP, LIPA, LIVER, CMADM #### [facility] [address] [place] [address] Dennys Cheyenne BILI, CONJUGATED 1.9 mg/dL Critically high 0.0-0.3 [facility] Comment on above: Result Comment: TEST REPEATED. CRITICAL VALUE VERIFIED Performed By: #### B MP, BNP, LIPA, LIVER, CMADM #### [facility] [address] [place] [address] Dennys Cheyenne Bilirubin Ql (U) 3.4 mg/dL Critically high 0.2-1.3 [facility] Comment on above: Performed By: #### B MP, BNP, LIPA, LIVER, CMADM #### [facility] [address] [place], [place] [address] Dennys Cheyenne Globulin (S) [Mass/Vol] 5.2 g/dL Normal [facility] Comment on above: Performed By: #### B MP, BNP, LIPA, LIVER, CMADM #### [facility] [address] [place] [id number] Dennys Cheyenen Protein [Mass/Vol] 7.4 g/dL Normal 6.1-8.2 [facility] Comment on above: Performed By: #### B MP, BNP, LIPA, LIVER, CMADM #### [facility] [address] [place] [id number] Dennys Cheyenne OCC BLD IMMUNO SCREENon 02-12 OCCULT BLOOD Positive Normal NEGATIVE [facility] Comment on above: Performed By: #### O BSCRN #### [facility] [address] [place], [place] [id number] Dennys Cheyenne PROF CHEM 8 (BAS METB)on Anion gap [Moles/Vol] 10.7 mmol/L Normal [facility] Comment on above: Performed By: #### B MP, BNP, LIPA, LIVER, CMADM #### [facility] [address] [place] [id number] Dennys Cheyenne Calcium [Mass/Vol] 7.8 mg/dL Critically low 8.4-10.2 [facility] Comment on above: Performed By: #### B MP, BNP, LIPA, LIVER, CMADM #### [facility] [address] [place] [id number] Dennys Cheyenne Chloride [Moles/Vol] 104 mmol/L Normal 98-107 [facility] Comment on above: Performed By: #### B MP, BNP, LIPA, LIVER, CMADM #### [facility] [address] [id number] Dennys Cheyenne CO2 [Moles/Vol] 24.5 mmol/L Normal 22.0-30.0 [facility] Comment on above: Performed By: #### B MP, BNP, LIPA, LIVER, CMADM #### [facility] [address] [id number] Dennys Cheyenne Creatinine [Mass/Vol] 1.00 mg/dL Normal 0.66-1.25 [facility] Comment on above: Performed By: #### B MP, BNP, LIPA, LIVER, CMADM #### [facility] [address] [place] [address] Dennys Cheyenne EGFR-AF ZIMBABWEAN >60 Normal >=60 [facility] Comment on above: Performed By: #### B MP, BNP, LIPA, LIVER, CMADM #### [facility] [address] [place] [address] Dennys Cheyenne EGFR-NON AF ZIMBABWEAN >60 Normal >=60 [facility] Comment on above: Performed By: #### B MP, BNP, LIPA, LIVER, CMADM #### [facility] [address] [place] [address] Dennys Cheyenne Glucose [Mass/Vol] 108 mg/dL Critically high 74-106 [facility] Comment on above: Performed By: #### B MP, BNP, LIPA, LIVER, CMADM #### [facility] [address] [place] [address] Dennys Cheyenne Potassium [Moles/Vol] 3.2 mmol/L Critically low 3.4-5.0 [facility] Comment on above: Performed By: #### B MP, BNP, LIPA, LIVER, CMADM #### [facility] [address] [place] [address] Dennys Cheyenne Sodium [Moles/Vol] 136 mmol/L Critically low 137-145 [facility] Comment on above: Performed By: #### B MP, BNP, LIPA, LIVER, CMADM #### [facility] [address] [place] [address] Dennys Cheyenne Urea nitrogen [Mass/Vol] 10.0 mg/dL Normal 9.0-20.0 [facility] Comment on above: Performed By: #### B MP, BNP, LIPA, LIVER, CMADM #### [facility] [address] [place] [address] Dennys Cheyenne Urea nitrogen/Creatini ne [Mass ratio] 10.0 mg/mg Normal [facility] Comment on above: Performed By: #### B MP, BNP, LIPA, LIVER, CMADM #### [facility] [address] [place] [address] Dennys Cheyenne PROTIMEon 03-11-2019 INR Coag (PPP) [Relative time] 1.85 {INR} Normal [facility] Comment on above: Performed By: #### P TT, PT, DDIM #### [facility] [address] [place] [address] Dennys Cheyenne PT Coag (PPP) [Time] 18.8 s Critically high 9.0-11.6 [facility] Comment on above: Performed By: #### P TT, PT, DDIM #### [facility] [address] [place] [address] Dennys Cheyenne PT Coag (PPP) [Time] PLEASE NOTE: NORMAL RANGE CHANGE 02-28-2014 DUE TO REAGENT LOT CHANGE Normal [facility] Comment on above: Performed By: #### P TT, PT, DDIM #### [facility] [address] [place] [address] Dennys Cheyenne PT Coag (PPP) [Time] SEE BELOW Normal [facility] Comment on above: Result Comment: ADDI RED INR: 2.0 - 3.0 CONDITIONS NOT LISTED BELOW 2.5 - 3.5 FOR PROSTHETIC HEART VALVE REPLACEMENT 2.5 - 3.5 RECURRENT THROMBOSIS Performed By: #### P TT, PT, DDIM #### [facility] [address] [place] [address] Dennys Cheyenne PTTon 03-11-2019 aPTT Coag (Bld) [Time] 39.4 s Critically high 22.3-36.2 [facility] Comment on above: Performed By: #### P TT, PT, DDIM #### [facility] [address] [place] [address] Dennys Cheyenne aPTT Coag (Bld) [Time] PLEASE NOTE: NORMAL RANGE CHANGE 05-07-2015 DUE TO REAGENT LOT CHANGE Normal [facility] Comment on above: Performed By: #### P TT, PT, DDIM #### [facility] [address] [place], [place] [phone] Dennys Quinn TYPE AND SCREENon 03-11-2019 TYPE AND SCREEN Negative Normal [facility] Comment on above: Performed By: #### O BSCRN #### [facility] [address] [place], [place] [address] Dennys Quinn Vital Signs Date Time Vital Sign Value Performing Clinician Faci cheriy 06-04-2019 11:26-0500 BMI (Body Mass Index) 33.15 kg/m2 Don Gholam [facility] Work Phone: 06-04-2019 11:26-0500 Body Temperature 98.6 [degF] Don Gholam [facility] Work Phone: 06-04-2019 11:26-0500 Body weight 98.88 kg Don Gholam [facility] [facility] Work Phone: 06-04-2019 11:26-0500 BP Diastolic 66 mm[Hg] Don Gholam [facility] Work Phone: 06-04-2019 11:26-0500 BP Systolic 106 mm[Hg] Don Gholam [facility] Work Phone: 06-04-2019 11:26-0500 BSA (Body Surface Area) 2.12 m2 Don Gholam [facility] [facility] Work Phone: 06-04-2019 11:26-0500 Height 172.72 cm Don Gholam [facility] Work Phone: 06-04-2019 11:26-0500 Pulse (Heart Rate) 87 /min Don Gholam [facility] Work Phone: Encounters Encounter Date Encounter Type Care Provider Facility Start: 10-24-2023 End: 10-24-2023 ambulatory Ana Martini [facility] Work Phone: Start: 10-24-2023 End: 10-24-2023 Departed Referred MACIEJ Shaysonya Martini Work Phone: [facility] [place] [facility] Start: 06-04-2019 Patient encounter procedure Don Gholam [facility] [facility] Work Phone: Start: 04-10-2019 Patient encounter procedure Don Gholam [facility] [facility] Work Phone: Start: 03-28-2019 Patient encounter procedure Don Alfredoolam [facility] [place] [facility] Work Phone: Start: 03-11-2019 End: 03-12-2019 Patient encounter procedure SHAREE MARKER Facility: Procedures Date Procedure Procedure Detail Performing Clinician Start: 04-04-2019 Follow-up visit Start: 03-11-2019 End: 03-11-2019 Microscopic examination of blood, culture SHAREE MARKER Comment on above: Performed By: #### O BSCRN #### [facility] [address] [place] [address] Dennys Quinn Abdominal paracentesis Pierr e Ghol[facility] Don Alfredoolam Payers Date Payer Category Payer Self-pay 1975 Unknown [id number] 1961 Medicaid [id number] Social History Date Type Detail Facility Assertion Unknown if ever smoked [facility] [facility] Work Phone: Start: 1975 Sex Assigned At Male F [facility] Functional Status Date Assessment Result Facility NEGATED: Highlighted row Functional performance Functional status health issues are not documented Disease [facility] [facility] Work Phone: Mental Status Date Assessment Result Facility NEGATED: Highlighted row Cognitive function [Interpretation] Cognitive status health issues are not documented Disease [facility] [facility] Work Phone: Evaluation note Note Date & Type Note Facility Evaluation note No assessment information availa [facility] Work Phone: Summary Purpose Family History No [...] CREATED AUTHOR AUTHOR'S ORGANIZ ATION 10/29/2023 [facility] Care Teams (unrecognized sec tion [...] BE BASED ON THE PRIMARY CLINICAL RECORDS. [facility]. provides no warranty or guarantee of the accuracy or completeness of information in this document.
[2024-02-16 11:26] LABS: Basophils Absolute Auto 0.1 10^3/uL (0.0-0.1); Basophils Percent Auto 1.8 % (0.2-2.0); Eosinophils Absolute Auto 0.3 10^3/uL (0.0-0.7); Eosinophils Percent Auto 9.1 % (0.9-7.0); Hemoglobin 7.3 g/dL (14.0-18.0); Immature Granulocytes Abs Auto 0.02 10^3/uL (0.00-0.03); Immature Granulocytes Pct Auto 0.7 % (0.0-0.5); Lymphocytes Absolute Auto 0.8 10^3/uL (1.2-3.8); Lymphocytes Percent Auto 27.4 % (20.5-60.0); Mean Corpuscular HGB Conc 31.7 g/dL (29.9-35.2); Mean Corpuscular Hemoglobin 22.2 pg (25.9-34.0); Mean Corpuscular Volume 69.9 fL (80.0-94.0); Monocytes Absolute Auto 0.3 10^3/uL (0.3-0.8); Monocytes Percent Auto 10.9 % (1.7-12.0); Neutrophils Absolute Auto 1.4 10^3/uL (1.4-6.5); Neutrophils Percent Auto 50.1 % (43.0-75.0); Platelet Count 38 10^3/uL (150-450); Red Blood Count 3.29 10^6/uL (4.70-6.10); Red Cell Distribution Width 19.9 % (11.0-15.0); White Blood Count 2.7 10^3/uL (4.0-11.0)
[2024-02-16 11:34] LABS: Alanine Aminotransferase 22 U/L (16-63); Albumin Globulin Ratio 0.4; Albumin Level 2.1 g/dL (3.4-5.0); Alkaline Phosphatase 103 U/L (46-116); Anion Gap 9.3; Aspartate Amino Transferase 57 U/L (15-37); BUN Creatinine Ratio 5.4; Bilirubin Total 3.3 mg/dL (0.2-1.0); Calcium 7.6 mg/dL (8.5-10.1); Carbon Dioxide 28.6 mmol/L (21.0-32.0); Chloride 103 mmol/L (98-107); Estimated GFR (African America >60 (>=60); Estimated GFR (Non-African Ame >60 (>=60); Globulin 5.2 g/dL; Glucose 119 mg/dL (74-106); Potassium 3.9 mmol/L (3.5-5.1); Sodium 137 mmol/L (136-145); Total Protein 7.3 g/dL (6.4-8.2)
--- NOTE | 2024-02-16 11:50 | ED.GENADUL1 ---
HPI HPI - General Adult General Chief complaint: Wound/Laceration Stated complaint: BILATERAL LEG SWELLING Time Seen by Provider: 02/16/24 10:45 Source: patient Mode of arrival: walk-in Limitations: no limitations History of Present Illness HPI narrative: 48-year-old male to the emergency department chief complaint of chronic leg wounds. Patient reports that for the last year he has had some discoloration to his lower legs. This is progressed to him having some open lesions that occasionally seep. reports it has been worse over the last 6 months. He does have a history of cirrhosis. His finally talked him into being seen for this today. He was seen in the primary care office and was sent to the emergency department for further evaluation. Related Data Previous Rx's ?Medication ?Instructions ?Recorded compression panty, 1x-2x #2 ea 02/16/24 Allergies Allergy/AdvReac Type Severity Reaction Status Date / Time No Known Drug Allergies Allergy Verified 02/16/24 10:42 Opioid HPI Opioid Management Most Recent Opioid Data: Last Pain Scale 4 10/17/23 23:59 Last ORT Total Score 3 10/24/23 18:10 Last ORT Risk Category Low Risk 10/24/23 18:10 Review of Systems ROS Status of ROS 10 or more systems reviewed and unremarkable except as noted in history and below [facility] Medical History (Updated 02/16/24 @ 11:28 by Joe Estrella MD) Contact dermatitis ?L25.9 - Unspecified contact dermatitis, unspecified cause (ICD-10) Pancytopenia ?D61.818 - Other pancytopenia (ICD-10) Alcohol intoxication ?F10.929 - Alcohol use, unspecified with intoxication, unspecified (ICD-10) Anemia requiring transfusions ?D64.9 - Anemia, unspecified (ICD-10) Bilateral lower leg cellulitis ?L03.116 - Cellulitis of left lower limb (ICD-10) ?L03.115 - Cellulitis of right lower limb (ICD-10) Hypertension ?I10 - Essential (primary) hypertension (ICD-10) Cirrhosis ?K74.60 - Unspecified cirrhosis of liver (ICD-10) Family History (Updated 10/24/23 @ 17:57 by Bernie Rodriguez) Mother Family history of cancer Family history of diabetes mellitus Sister Family history of diabetes mellitus Social History Highest level of school completed/degree received: 12th grade, no diploma Do you think of yourself as: straight/heterosexual Gender Identity: male Exam Narrative Exam Narrative: VITALS: I have reviewed the triage vital signs. GENERAL: Well developed, well appearing adult male in no acute distress. NEURO: Alert and oriented. Moves all extremities. Face is symmetric and expressive. EYES: PERRL. No scleral icterus or conjunctival injection. No discharge. HENT: Normocephalic, atraumatic. Hearing is grossly intact. Nares grossly patent and without discharge. Mucous membranes moist. NECK: No JVD. Patient moves neck without restriction. CARDIO: Rhythm regular. Normal rate. No murmur, rub, or gallop. Pulses equal bilaterally in the upper and lower extremity. +1 lower extremity edema. PULM: Lungs clear to auscultation in all schneider. No wheezes, rales, or rhonchi. No conversational dyspnea. No splinting, stridor, or accessory muscle use. GI/: Abdomen is soft and non-tender. Normoactive bowel sounds. EXTREMITIES: Symmetric muscle bulk. No joint swelling. No clubbing, cyanosis, or deformity. SKIN: Warm and dry. Normal turgor. Scaling, hemosiderin staining, erythematous rash with some seeping to the anterior lower leg bilaterally. PSYCH: Mood, affect, and interaction is appropriate to the setting. Constitutional Vital Signs, click to edit/add: Last Vital Signs Temp 98.7 F 02/16/24 10:43 Pulse 85 02/16/24 10:43 Resp 02/16/24 10:43 BP 121/69 02/16/24 10:43 Pulse Ox 100 02/16/24 10:43 O2 Del Method Room Air 02/16/24 10:43 Course Vital Signs Vital signs: Vital Signs Temperature 98.7 F 02/16/24 10:43 Pulse Rate 85 02/16/24 10:43 Respiratory Rate 16 02/16/24 10:43 Blood Pressure 121/69 02/16/24 10:43 Pulse Oximetry 100 02/16/24 10:43 Oxygen Delivery Method Room Air 02/16/24 10:43 Temperature 98.7 F 02/16/24 10:43 Pulse Rate 85 09/05/24 10:43 Respiratory Rate 16 02/16/24 10:43 Blood Pressure 121/69 02/16/24 10:43 Pulse Oximetry 100 02/16/24 10:43 Oxygen Delivery Method Room Air 02/16/24 10:43 Medical Decision Making MDM Narrative Medical decision making narrative: 48-year-old male to the emergency department chief complaint of chronic rash to his lower extremities. Vital stable, the patient is afebrile. Was sent to the emergency department for labs by PCP. This does appear to be a chronic venous stasis dermatitis. Does not appear to be infected. Basic labs are ordered. CBC with baseline pancytopenia. No transfusion indication at this time. Chemistry is also baseline for the patient. Wound care referral given. Compression stockings. Return precautions were discussed. All questions were answered. The patient was discharged home. Medical Records Medical records reviewed: Yes I reviewed the patient's medical records Lab Data Lab results reviewed: Yes I reviewed the patient's lab results Labs: Lab Results 02/16/24 Range/Units 10:55 WBC 2.7 L (4.0-11.0) 10^3/uL RBC 3.29 L (4.70-6.10) 10^6/uL Hgb 7.3 L (14.0-18.0) g/dL Hct 23.0 L* (42.0-54.0) % MCV 69.9 L (80.0-94.0) fL MCH 22.2 L (25.9-34.0) pg MCHC 31.7 (29.9-35.2) g/dL RDW 19.9 H (11.0-15.0) % Plt Count 38 L (150-450) 10^3/uL Neut % (Auto) 50.1 (43.0-75.0) % Lymph % (Auto) 27.4 (20.5-60.0) % Sevier % (Auto) 10.9 (1.7-12.0) % Eos % (Auto) 9.1 H (0.9-7.0) % Baso % (Auto) 1.8 (0.2-2.0) % Neut # (Auto) 1.4 (1.4-6.5) 10^3/uL Lymph # (Auto) 0.8 L (1.2-3.8) 10^3/uL Sevier # (Auto) 0.3 (0.3-0.8) 10^3/uL Eos # (Auto) 0.3 (0.0-0.7) 10^3/uL Baso # (Auto) 0.1 (0.0-0.1) 10^3/uL Abs Immat Gran (auto) 0.02 (0.00-0.03) 10^3/uL Imm/Tot Granulo (auto) 0.7 H (0.0-0.5) % Sodium 137 (136-145) mmol/L Potassium 3.9 (3.5-5.1) mmol/L Chloride 103 (98-107) mmol/L Carbon Dioxide 28.6 (21.0-32.0) mmol/L Anion Gap 9.3 BUN 4.0 L (7.0-18.0) mg/dL Creatinine 0.74 (0.70-1.30) mg/dL Est GFR ( Amer) >60 (>=60) Est GFR (Non-Af Amer) >60 (>=60) BUN/Creatinine Ratio 5.4 Glucose 119 H (74-106) mg/dL Calcium 7.6 L (8.5-10.1) mg/dL Total Bilirubin 3.3 H (0.2-1.0) mg/dL AST 57 H (15-37) U/L ALT 22 (16-63) U/L Alkaline Phosphatase 103 (46-116) U/L Total Protein 7.3 (6.4-8.2) g/dL Albumin 2.1 L (3.4-5.0) g/dL Globulin 5.2 g/dL Albumin/Globulin Ratio 0.4 Discharge Plan Discharge Stand Alone Forms: Work/School Release, Portal Instructions Chief Complaint: Wound/Laceration Clinical Impression: Chronic venous stasis dermatitis Patient Disposition: Home, Self-Care Time of Disposition Decision: 11:22 Condition: Good Mode of Transportation: Private Vehicle Prescriptions / Home Meds: New (DME) compression panty, 1x-2x Misc See Rx Instructions .Route Qty: 2 0RF Rx Instructions: Compression Stocking, 20-30mmHg, calf length Print Language: Russian Instructions: Venous Insufficiency (DC) Additional Instructions: Obtain compression stockings, 20 to 30 mmHg. Wear daily. Referrals: ESTELLA CARRILLO [Primary Care Provider] - 1 week Esequiel Dalton DPM [Physician] - 1 week
== END 2024-02-16 12:44 | disposition home or self-care (01) ==
PROVIDERS: Emergency Provider Student in an Organized Health Care Education/Training Program; PCP Nurse Practitioner Family
DX: I87.2 Venous insufficiency (chronic) (peripheral) (principal); K74.60 Unspecified cirrhosis of liver
CPT/HCPCS: 36415; 80053; 85025; 99283